=== PATIENT | male | born 1950 | race Caucasian/White ===

== ENCOUNTER 2016-12-24 07:41 | Inpatient (IN) | payer MEDICARE ==
[2016-12-24] VITALS (18 sets, daily range): BP systolic 138–162; BP diastolic 69–93; PULSE 55–103; RESP 12–22; Ht 180.3 cm; Wt 77.5 kg
[~2016-12-24] VITALS: Ht 180.3 cm; Wt 77.5 kg
[2016-12-24] MEDS ORDERED: SOD CHLORIDE 0.9% 1,000 ML IV STA (07:45)
--- NOTE | 2016-12-24 08:10 | RADRPT ---
PROCEDURE: XR Chest. CLINICAL INDICATION: Chest pain , CVA TECHNIQUE: Single frontal view of the chest was obtained COMPARISON: None FINDINGS: The heart is enlarged. The thoracic aorta is calcified. There are mild bibasilar linear atelectatic changes. There is no pleural effusion or pneumothorax. RPTAT: AA IMPRESSION: Mild cardiomegaly. Calcified aorta consistent with atherosclerotic disease. Mild bibasilar linear atelectatic changes. .Bart Tavera MD, MD Date Time Electronically viewed and signed by .Bart Tavera MD, MD on 12/24/2016 08:10 .S/
[2016-12-24 08:24] LABS: BASOPHILS % 0.4 % (0.0-2.0); EOSINOPHILS # 0.2 10^3/ul (0.0-0.5); HEMATOCRIT 32.6 % (42.0-52.0); HEMOGLOBIN 10.6 g/dl (14.0-18.0); LYMPHOCYTES # 0.9 10^3/ul (0.8-2.9); LYMPHOCYTES % 18.7 % (15.0-51.0); MEAN CORPUSCULAR HEMOGLOBIN 30.3 pg (29.0-33.0); MEAN CORPUSCULAR HGB CONC 32.5 g/dl (32.0-37.0); MEAN CORPUSCULAR VOLUME 93.1 fl (82.0-101.0); MEAN PLATELET VOLUME 9.3 fl (7.4-10.4); MONOCYTE # 0.3 10^3/ul (0.3-0.9); MONOCYTES % 6.4 % (0.0-11.0); NEUTROPHIL # 3.3 10^3/ul (1.6-7.5); NEUTROPHILS % 69.1 % (39.0-77.0); PLATELET COUNT 120 10^3/UL (140-415); RED CELL DISTRIBUTION WIDTH 14.3 % (11.5-14.5); WHITE BLOOD COUNT 4.8 10^3/ul (4.8-10.8)
[2016-12-24 08:42] LABS: INR 1.1; PARTIAL THROMBOPLASTIN TIME 31.7 Sec (25.0-35.0); PROTIME 14.2 Sec (12.2-14.2); PT RATIO 1.1
[2016-12-24 08:47] LABS: ANION GAP 26 (8-16); BLOOD UREA NITROGEN 50 mg/dl (7-20); CALCIUM 9.4 mg/dl (8.4-10.2); CARBON DIOXIDE 12 mmol/L (21-31); CHLORIDE 110 mmol/L (97-110); GLUCOSE 110 mg/dl (70-220); POTASSIUM 4.9 mmol/L (3.5-5.1); SODIUM 143 mmol/L (135-144)
[2016-12-24 08:52] LABS: ACETAMINOPHEN < 10.0 ug/ml (10.0-30.0); ETHANOL < 10.0 mg/dl; SALICYLATE < 1.0 mg/dl (5.0-30.0)
--- NOTE | 2016-12-24 08:52 | RADRPT ---
PROCEDURE: CT Brain without contrast. CLINICAL INDICATION: Neurological deficit. TECHNIQUE: A CT of the brain was performed on multidetector high-resolution CT scanner utilizing a xial sections from the skull base through the vertex without contrast. The scan was reviewed in sof t tissue brain and high frequency resolution bone algorithm windows. Images were reviewed on a high -resolution PACS workstation. One or more the following does reduction techniques were utilized: Aut omated exposure control, adjustment of the mA/ or kV according to patient's size, or use of iterativ e reconstruction technique. The exam CTDI = 44.99 mGy and the DLP = 720.23 mGy-cm. DICOM images are available. COMPARISON: None available. FINDINGS: There are extra-axial moderately hyperdense foci mainly overlying left frontal lobe measuring up to 6 mm which are likely represent subdural hemorrhages. There is 2 mm leftward midline shift. Postsurgical changes of prior left frontal craniotomy are noted. The ventricles and sulci are mildly prominent indicative of volume loss. There is mild cerebellar vo lume loss. No abnormal intra-axial or extra-axial fluid collections are seen. The rowell/white romel er differentiation is preserved. There are mild scattered foci of hypoattenuation in the white matter, which are nonspecific in etiol ogy but likely reflect chronic small vessel ischemic changes. There are mild intracranial vascular calcifications consistent with atherosclerosis. The visualized paranasal sinuses are essentially shanae ar. IMPRESSION: 1. Extra-axial moderately hyperdense hemorrhages mainly overlying left frontal lobe measuring up to 6 mm , likely subdural hemorrhages. 2 mm leftward midline shift. 2. No acute intracranial transcortical infarction. 3. Mild intracranial atherosclerosis and chronic small vessel ischemic changes. 4. Prior left frontal craniotomy. 5. Mild generalized cerebral and cerebellar volume loss. A critical call report was made and above findings were discussed and acknowledged by Chela Loyd on 12/24/2016 8:46 AM . RPTAT: UU .Pancho Bowie MD, MD Date Time Electronically viewed and signed by .Pancho Bowie MD, MD on 12/24/2016 08:51 .N/
[2016-12-24 08:58] LABS: TROPONIN-I 0.069 ng/ml (0.00-0.12)
[2016-12-24 09:29] LABS: ADD UMIC YES; UR ASCORBIC ACID NEGATIVE (NEGATIVE); UR BILIRUBIN (Dip) NEGATIVE (NEGATIVE); UR BLOOD (Dip) 1+ mg/dL (NEGATIVE); UR CLARITY CLEAR (CLEAR); UR COLOR STRAW (YELLOW); UR GLUCOSE (Dip) NEGATIVE (NEGATIVE); UR KETONES (Dip) NEGATIVE (NEGATIVE); UR LEUKOCYTE ESTERASE (Dip) NEGATIVE Leu/ul (NEGATIVE); UR NITRITE (Dip) NEGATIVE (NEGATIVE); UR RBC 2 /HPF (0-5); UR SPECIFIC GRAVITY (Dip) 1.009 (1.003-1.030); UR TOTAL PROTEIN (Dip) 2+ mg/dl (NEGATIVE); UR UROBILINOGEN (Dip) NEGATIVE (NEGATIVE)
[2016-12-24 09:42] LABS: CANNABINOIDS Negative (NEGATIVE)
[2016-12-24 09:43] LABS: BARBITURATES Negative (NEGATIVE); BENZODIAZEPINES Negative (NEGATIVE); COCAINE Negative (NEGATIVE); OPIATES Negative (NEGATIVE)
[2016-12-24] MEDS: DEXTROSE 5%-0.45% NACL 500 ML IV SCH ×2 (12:13→16:33)
--- NOTE | 2016-12-24 13:07 | ERD ---
ER Documentation Chief Complaint Chief Complaint bib paramedics from home;altered loc-last seen normal last night by kennedy SALCIDO Patient is a 66-year-old male with hypertension hepatitis A who presents with altered mental status. Please note the history and physical exam is limited secondary to the patient's altered mental status. Patient was brought in by ambulance. The patient was seen normal last night. The patient was "mumbling" by the paramedics. The patient is much different than usual as he is usually able to walk and today could not. His sugar was 123. He cannot provide much history otherwise. ROS All systems reviewed and are negative except as per history of present illness. Allergies Allergies: Coded Allergies: No Known Allergy (Unverified , 12/24/16) PMhx/Soc Medical and Surgical Hx: pt denies Surgical Hx History of Surgery: Yes (Per head Ct, there was Crany before, pt can't remember ) Hx Neurological Disorder: No Hx Respiratory Disorders: No Hx Cardiac Disorders: Yes (HTN) Hx Psychiatric Problems: No Hx Miscellaneous Medical Probl: No Smoking Status: Unknown if ever smoked FmHx Unable to obtain Physical Exam Vitals Vital Signs Date Time Temp Pulse Resp B/P Pulse Ox O2 Delivery O2 Flow Rate FiO2 12/24/16 07:53 Nasal Cannula 2 12/24/16 07:51 97.8 64 19 143/76 96 Physical Exam Const: Confused Head: Atraumatic Eyes: Normal Conjunctiva ENT: Normal External Ears, Nose and Mouth. Neck: Full range of motion..~ No meningismus. Resp: Clear to auscultation bilaterally Cardio: Regular rate and rhythm, no murmurs Abd: Soft, non tender, non distended. Normal bowel sounds Skin: No petechiae or rashes Back: No midline or flank tenderness Ext: No cyanosis, or edema Neur: Awake but confused, able to hold arms up bilaterally, able to lift each leg against gravity Result Diagram: 12/24/16 0750 12/24/16 0750 Results 24 hrs Laboratory Tests Test 12/24/16 07:50 12/24/16 07:57 12/24/16 08:33 White Blood Count 4.810^3/ul Red Blood Count 3.5010^6/ul Hemoglobin 10.6g/dl Hematocrit 32.6% Mean Corpuscular Volume 93.1fl Mean Corpuscular Hemoglobin 30.3pg Mean Corpuscular Hemoglobin Concent 32.5g/dl Red Cell Distribution Width 14.3% Platelet Count 80032^3/UL Mean Platelet Volume 9.3fl Neutrophils % 69.1% Lymphocytes % 18.7% Monocytes % 6.4% Eosinophils % 5.0% Basophils % 0.4% Nucleated Red Blood Cells % 0.0/100WBC Neutrophils # 3.310^3/ul Lymphocytes # 0.910^3/ul Monocytes # 0.310^3/ul Eosinophils # 0.210^3/ul Basophils # 0.010^3/ul Nucleated Red Blood Cells # 0.010^3/ul Prothrombin Time 14.2Sec Prothrombin Time Ratio 1.1 INR International Normalized Ratio 1.10 Activated Partial Thromboplast Time 31.7Sec Sodium Level 143mmol/L Potassium Level 4.9mmol/L Chloride Level 110mmol/L Carbon Dioxide Level 12mmol/L Anion Gap 26 Blood Urea Nitrogen 50mg/dl Creatinine 5.20mg/dl Glucose Level 110mg/dl Hemoglobin A1c 4.4% Calcium Level 9.4mg/dl Troponin I 0.069ng/ml Salicylates Level < 1.0mg/dl Acetaminophen Level < 10.0ug/ml Ethyl Alcohol Level < 10.0mg/dl Bedside Glucose 115mg/dL Urine Color STRAW Urine Clarity CLEAR Urine pH 5.0 Urine Specific [place] 1.009 Urine Ketones NEGATIVEmg/dL Urine Nitrite NEGATIVEmg/dL Urine Bilirubin NEGATIVEmg/dL Urine Urobilinogen NEGATIVEmg/dL Urine Leukocyte Esterase NEGATIVELeu/ul Urine Microscopic RBC 2/HPF Urine Microscopic WBC 1/HPF Urine Hemoglobin 1+mg/dL Urine Glucose NEGATIVEmg/dL Urine Total Protein 2+mg/dl Urine Opiates Screen Negative Urine Barbiturates Negative Urine Amphetamines Screen Negative Urine Benzodiazepines Screen Negative Urine Cocaine Screen Negative Urine Cannabinoids Negative Current Medications Medications (Trade) Dose Ordered Sig/Jorge L Route PRN Reason Start Time Stop Time Status Last Admin Dose Admin Sodium Chloride (NS) 1,000 ml @ 1,000 mls/hr Q1H STAT IV 12/24/16 07:45 12/24/16 08:44 DC 12/24/16 08:08 Procedures/MDM CT brain shows subdural hemorrhage with 2 mm midline shift per radiology. EKG read by me: Rate/Rhythm: Regular rate and rhythm at a normal rate Intervals: Normal Impression: No evidence of ischemia or arrhythmia Patient is a 66-year-old male presents with acute altered mental status. The patient was found to have a subdural hemorrhage with 2 mm of midline shift. The patient has an elevated BUN and creatinine as well showing acute renal failure. There is anemia with hemoglobin of 10.6 and there is thrombocytopenia with a platelet count of 120. The patient will be admitted to the ICU under the care of the panel team. I have also spoken with Dr. Laughlin the neurosurgeon sales professional bilingual who was recommended 1 unit of platelets and will see the patient in consultation. Given the patient's age and comorbidities I believe a discussion with the family regarding goals of care would be appropriate. There is no family here currently. Critical Care: Time: 35 minutes excluding all billable procedures. Treatments/Evaluations: Close monitoring and treatment of unstable vital signs, cardiorespiratory, and neurologic status, while maintaining tight balance of fluid, respiratory, and cardiac interventions. Departure Diagnosis: Primary Impression: Subdural hemorrhage Additional Impressions: Altered level of consciousness Thrombocytopenia Condition: Critical MICKEY MELISSA MD Dec 24, 2016 13:07
--- NOTE | 2016-12-24 14:07 | HP ---
Date/Time of Note Date/Time of Note DATE: 12/24/16 TIME: 13:42 Assessment/Plan VTE Prophylaxis VTE Prophylaxis Intervention: SCD's Lines/Catheters IV [facility]ter Type (from [facility]): Peripheral IV Urinary Cath still in place: No Assessment/Plan Chief Complaint/Hosp Course 66 yo male with unclear medical history who presents with SDH and mild encephelopathy with SERAFIN vs CKD SDH: - No surgical intervention needed at this time - Repeat head CT this afternoon to monitor for progression - PT/OT - Speech eval - Neuro consult - Hold AC and antiplatelets - Will give DDAVP if progressive bleed given uremia - Unclear reason for prior craniotomy seen on head CT - BP controlled SERAFIN vs CKD: - Unclear etiology or chronicity of renal failure - Renal US, UA bland but w proteinuria - No need for acute HD - Trend creatinine ICU Problems: HPI/ROS Admit Date/Time Admit Date/Time Dec 24, 2016 at 08:58 Hx of Present Illness 66 yo male with unclear medical history (only reports "kidney problem", head CT shows prior craniectomy) who presented with 1 day of AMS Patient does not remember the exact events leading up to hospitalization. Says he felt unwell yesterday, but can't offer much more information. Says he was taking advil. Does nto remember following this. Per EMS and ED reports, his room mate called EMS because he was acting strangely. Brought to ED where head imaging has shown a SDH with small midline shift. Patient feels well now, no complaints of headache, weakness, etc Also has a bruise under his left eye, says he felt and hit his head on the couch a couple weeks ago, but was fine afterwards Does seem a bit confused PMH/Family/Social Past Medical History Medical History: no pertinent history Past Surgical History Past Surgical Hx: other Family History Significant Family History: no pertinent family hx Social History Alcohol Use: none Smoking Status: Unknown if ever smoked Drug Use: none Exam/Review of Systems Vital Signs Vitals Vital Signs Date Time Temp Pulse Resp B/P Pulse Ox O2 Delivery O2 Flow Rate FiO2 12/24/16 12:30 59 17 152/75 97 12/24/16 12:00 97.7 12/24/16 10:10 Room Air 12/24/16 07:53 2 Exam Exam Well appearing, NAD A bit drowsy Alert, oriented to "hospital", date, person Small ecchymosis under L eye Neuro: CN II-XII in tact Sensation in tact throughout Strenght 5/5 throughout FNF normal Gait not assessed Constitutional: alert, oriented, well developed Psych: nl mood/affect, no complaints Head: atraumatic, normocephalic Eyes: EOMI, PERRL, nl conjunctiva, nl lids, nl sclera ENMT: nl external ears & nose, nl lips & teeth, nl nasal mucosa & septum Neck: non-tender, supple Respiratory: clear to auscultation, normal air movement Cardiovascular: nl pulses, regular rate and rhythm Gastrointestinal: nl liver, spleen, non-tender, soft Musculoskeletal: nl extremities to inspection Extremities: normal pulses Neurological: RUBBER GOODS TESTER II-XII intact, nl mental status, nl speech, nl strength Skin: nl turgor, No rash or lesions Lymph: nl lymph nodes Labs Result Diagram: 12/24/16 0750 12/24/16 0750 Medications Medications Current Medications Acetaminophen 325 mg 325 mg Q6H PRN PO PAIN AND OR ELEVATED TEMP; Start at 11:30 Dextrose/Sodium Chloride (D5-1/2ns) 500 ml @ 75 mls/hr Q6H40M IV Last administered on 12/24/16t 12:13; Admin Dose 75 MLS/HR; Start 12/24/16 at 11:30 ALYSSA HUSTON MD Dec 24, 2016 13:54
--- NOTE | 2016-12-24 14:19 | CONS ---
Date/Time of Note Date/Time of Note DATE: 12/24/16 TIME: 14:12 Assessment/Plan Assessment/Plan Problems: (1) Subdural hemorrhage Status: Acute Additional Assessment/Plan 66 year old male with prior hx of bur holes presumably for drainage of SDH now presents with small extra-axial mixed density collection. His wounds appear well healed and therefore I doubt this collection can completely be attributed to prior surgery, and is most likely a mixed age fluid collection given evidence of recent head trauma (left orbital echymosis). However, there is no indication for intervention for this hematoma at the present time. I recommend follow up CT in the am and if stable he may leave ICU. Thx. Consultation Date/Type/Reason Admit Date/Time Dec 24, 2016 at 08:58 Date of Consultation: Dec 24, 2016 Type of Consultation: neurosurgery Reason for Consultation left SDH Hx of Present Illness 66 year old male with prior hx of bur holes (presumed SDH) p/w altered mental status to ED. + ETOH history (patient admits to a pint or two of vodka, but not every day). CT in ED shows jeff mixed density extra-axial fluid under region of prior left frontal bur holes. Psychological: nl mood/affect, no complaints Past Medical History Medical History: no pertinent history Past Surgical History Past Surgical Hx: other Social History Alcohol Use: none Smoking Status: Unknown if ever smoked Drug Use: none Exam/Review of Systems Vital Signs Vitals Vital Signs Date Time Temp Pulse Resp B/P Pulse Ox O2 Delivery O2 Flow Rate FiO2 12/24/16 12:30 59 17 152/75 97 12/24/16 12:00 97.7 12/24/16 10:10 Room Air 12/24/16 07:53 2 Exam On exam the patient is awake and alert and oriented to his name, place and date. He does admit to having memory issues and does not remember having had prior neurosurgery in spite of repeated prompting; his wounds are well healed. He is moving all extremities and has no drift. His cranial nerve exam is normal without anisocoria, facial asymmetry, or other lateralizing neurologic deficit. Results Result Diagram: 12/24/16 0750 12/24/16 0750 Results 24 hrs Laboratory Tests Test 12/24/16 07:50 12/24/16 07:57 12/24/16 08:33 White Blood Count 4.8 Red Blood Count 3.50 L Hemoglobin 10.6 L Hematocrit 32.6 L Mean Corpuscular Volume 93.1 Mean Corpuscular Hemoglobin 30.3 Mean Corpuscular Hemoglobin Concent 32.5 Red Cell Distribution Width 14.3 Platelet Count 120 L Mean Platelet Volume 9.3 Neutrophils % 69.1 Lymphocytes % 18.7 Monocytes % 6.4 Eosinophils % 5.0 Basophils % 0.4 Nucleated Red Blood Cells % 0.0 Neutrophils # 3.3 Lymphocytes # 0.9 Monocytes # 0.3 Eosinophils # 0.2 Basophils # 0.0 Nucleated Red Blood Cells # 0.0 Prothrombin Time 14.2 Prothrombin Time Ratio 1.1 INR International Normalized Ratio 1.10 Activated Partial Thromboplast Time 31.7 Sodium Level 143 Potassium Level 4.9 Chloride Level 110 Carbon Dioxide Level 12 L Anion Gap 26 H Blood Urea Nitrogen 50 H Creatinine 5.20 H Glucose Level 110 Hemoglobin A1c 4.4 Calcium Level 9.4 Troponin I 0.069 Salicylates Level < 1.0 L Acetaminophen Level < 10.0 L Ethyl Alcohol Level < 10.0 Bedside Glucose 115 Urine Color STRAW Urine Clarity CLEAR Urine pH 5.0 Urine Specific [place] 1.009 Urine Ketones NEGATIVE Urine Nitrite NEGATIVE Urine Bilirubin NEGATIVE Urine Urobilinogen NEGATIVE Urine Leukocyte Esterase NEGATIVE Urine Microscopic RBC 2 Urine Microscopic WBC 1 Urine Hemoglobin 1+ H Urine Glucose NEGATIVE Urine Total Protein 2+ H Urine Opiates Screen Negative Urine Barbiturates Negative Urine Amphetamines Screen Negative Urine Benzodiazepines Screen Negative Urine Cocaine Screen Negative Urine Cannabinoids Negative Medications Medications Current Medications Acetaminophen 325 mg 325 mg Q6H PRN PO PAIN AND OR ELEVATED TEMP; Start at 11:30 Dextrose/Sodium Chloride (D5-1/2ns) 500 ml @ 75 mls/hr Q6H40M IV Last administered on 12/24/16t 12:13; Admin Dose 75 MLS/HR; Start 12/24/16 at 11:30 FOREIGN DE LEÓN MD Dec 24, 2016 14:18
[2016-12-24] MEDS ORDERED: NACL 0.9% 3 ML SYG IV SCH (14:30)
[2016-12-24] MEDS ORDERED: HYDR-3670 PO (16:01)
[2016-12-24] MEDS ORDERED: SYN1 PO (16:01)
[2016-12-24] MEDS ORDERED: AMLO-218 PO (16:01)
[2016-12-24] MEDS ORDERED: SEVE800T7 PO (16:01)
[2016-12-24] MEDS ORDERED: CALC0.5C4 PO (16:01)
[2016-12-24] MEDS ORDERED: TAMS0.4C2 PO (16:01)
--- NOTE | 2016-12-24 16:37 | RADRPT ---
PROCEDURE: Retroperitoneal US. CLINICAL INDICATION: Renal insufficiency TECHNIQUE: Multiple sonographic images of the kidneys and retroperitoneum were obtained. The imag es were reviewed on a PACS workstation. COMPARISON: No prior studies are available for comparison. FINDINGS: The right kidney measures 11.3 cm. The left kidney measures 11.7 cm. There is increased echogenicity of the kidneys. There is thinning of the cortex of the right kidney. There are multiple bilateral simple cysts, the largest measuring 3.1 cm in the right kidney and 2.6 cm in the left kidney. There is no evidence of hydronephrosis. The urinary bladder is normal. IMPRESSION: Echogenic kidneys, consistent with medical renal disease. No evidence of hydronephrosis. Bilateral simple kidney cysts. RPTAT: AA .Bart Tavera MD, Date Time Electronically viewed and signed by .Bart Tavera MD, on 12/24/2016 16:36 .S/
--- NOTE | 2016-12-24 16:39 | CONS ---
DATE OF ADMISSION: 12/24/2016 DATE OF CONSULTATION: REASON FOR CONSULTATION: Renal failure. HISTORY OF PRESENT ILLNESS: This is a 66-year-old male who was brought into the [facility] ER after being found to have altered have altered mental status per house members. Harriet cherry was brought in the ambulance. Patient was seen normal last night, was mumbling by the paramedics . He was very altered as compared to his norm before when he was seen by the local roommates and wa s brought into the emergency department. According to the patient, he was incarcerated 3 months ago secondary to a DUI and at that time, they told him that he had kidney disease. Apparently, patient also follows a kidney doctor, as per the prescription it says ____ in [place] and he has be en told that he has kidney disease. The patient does not know what stage kidney disease he has. Ac cording to the patient, he was taking Advil 2 to 3 a day in the morning. He took it on and off for many years. Patient denied any nausea, vomiting, diarrhea, any hematemesis, any melena, any bright red blood per rectum. Denies any recent contrast use. The patient, per review of the hospital meds, the patient also takes: 1. Aspirin. 2. Plavix, 3. Lasix. 4. ____. 5. Renvela. On arrival to ED, ____ blood pressure, heart rate of 60. The patient was afebrile. Blood pressure 145/69. Labs showed bicarb of 12, BUN of 50, creatinine of 5.20 and hemoglobin of 10.6. Patient wright d a CT of the head that showed extraaxial moderately hyperdense hemorrhages mainly overlying the lef t frontal lobe measuring 6 mm, likely subdural hemorrhages. A 2 mm leftward midline shift and a delmis or left frontal craniotomy and renal was consulted for renal failure. PAST MEDICAL HISTORY: 1. Hypertension. 2. Chronic kidney disease, unknown the stage. 3. History of prior frontal craniotomy. 4. Benign prostatic hypertrophy. 5. Secondary hyperparathyroidism. ALLERGIES: NONE. PAST SURGICAL HISTORY: He had tonsillectomy and right frontal craniotomy. MEDICATIONS: Taking at home are: 1. Kionex 15 grams Tuesday, Tuesday, Tuesday. 2. Renvela 1600 t.i.d. 3. ____ 200 b.i.d. 4. Amlodipine 10. 5. Calcitriol 0.25. 6. Flomax 0.4. 7. Plavix 75. 8. Lasix 40 b.i.d. 9. ____. 10. ____ 10 q.i.d. 11. Aspirin 81. 12. Lipitor 20. SOCIAL HISTORY: The patient drinks alcohol, said 1 to 2 bottles per day. He denies any history of smoking, any other drug use. Currently lives in [place] with other female roommates. FAMILY HISTORY: No history of kidney disease in the family. REVIEW OF SYSTEMS: ____ The patient says that he has been falling lately. Denied any headaches, an y blurry vision, nausea, vomiting, diarrhea, any chest ____, shortness of breath, lower extremity ed micaela. Once in a while, he said he has painful urination. Denies any hematuria. The patient has a b ruise under the left eye. PHYSICAL EXAMINATION: VITAL SIGNS: Heart rate 60, blood pressure 139/69, saturating 99% on room air. GENERAL: Patient is awake, alert, well appearing, alert and oriented. Responds, answers questions, follows commands. HEENT: Patient has a small bruise under the left eye. NECK: Supple, no JVD. HEART: Regular rate and rhythm. Normal S1. No murmur, rub or gallop. LUNGS: Clear to auscultate bilaterally. ABDOMEN: Soft, ____ positive normoactive bowel sounds. EXTREMITIES: No clubbing, cyanosis, or edema. NEUROLOGIC: The patient moves all extremities. Sensation intact. LABORATORY DATA: Shows a sodium 143, potassium 4.9, chloride 110, bicarbonate 12, BUN of 50, creati nine 5.2. HbA1c 4.4. Troponin 0.069. White count 4.8, hemoglobin 10.6, platelet count of 120. UA shows 1+ hemoglobin, glucose negative, 2+ protein. Urine toxicology is negative. IMAGING: Chest x-ray is a calcified aorta, mild cardiomegaly and CT of the brain shows extraaxial m oderately hyperdense images mainly overlying left frontal lobe measuring 6 mm, likely subdural hemor rhages, 2 mm leftward midline shift. No acute intracranial transcortical infarction. Prior left cr aniotomy. ASSESSMENT AND PLAN: This is a 66-year-old male presenting with: 1. Renal failure, likely acute on chronic versus progression of chronic disease. There are no prio r labs to compare, but patient has been followed by a prior [facility]mer as an outside and is curren tly on all the medications of chronic kidney disease. He has been told 3 months ago when he was inc arcerated that he will need dialysis soon. The patient also takes Advil at home on a chronic regula r basis, could have NSAIDs induced worsening renal failure. The patient denies any nausea, vomiting , diarrhea and has been having good p.o. intake that chances of prerenal causes are unlikely. The p atient does have history of benign prostatic hypertrophy, but denies any benign prostatic hypertroph y symptoms currently. Urine output was over 800 mL. UA showed 2+ protein; however, which is kind o f a little unlikely in the setting of hypertension; however, hypertensive patients can have worsenin g proteinuria if the blood pressure is uncontrolled. Plus NSAIDs can also cause proteinuria, can al so lead to minimal/membranous glomerulonephritis. 2. Non-gap metabolic acidosis, likely secondary to reduced clearance due to renal failure. 3. Subdural hemorrhage with an episode of altered mental status with a left eye ecchymosis. 4. Hypothyroidism. 5. History of benign prostatic hypertrophy. 6. Secondary hyperparathyroidism. 7. Hyperlipidemia. 8. Hypertension. PLAN: 1. At this period of time, the patient is admitted to ICU. 2. We will do strict I's and O's and some gentle IV fluids. 3. We will monitor the urine output very closely. 4. We will quantify the protein by checking a protein to creatinine ratio. We will also get urine electrolytes. 5. Renal ultrasound is pending. 6. Avoid NSAIDs. 7. Hold off on aspirin and Plavix at this time. 8. We are waiting for a speech swallow eval. Will hold off any p.o. medications at this time, but patient can be eventually started on his Kionex, Renvela, , , Flomax. 9. Hold off of Lasix at this time. 10. Avoid NSAIDs and nephrotoxic agents. 11. We will get all the records from [facility] to compare prior kidney functions. 12. The patient does not have any acute indication of any renal replacement therapy at this point. Vital signs stable. Volume status okay. Electrolytes okay, but if the condition changes, please c all renal emergently. 13. Will follow the patient closely with you. Thank you, Dr. Mike Sierra for consultation. Please call us for any other questions. Dictated By: CHRISTIAN VO/ILYA Conf#: [id number] DID#: [id number] CC: MIKE SIERRA MD;*EndCC*
[2016-12-24] MEDS: CITRIC ACID/SODIUM CITRATE 15 ML CUP PO SCH (20:31)
[2016-12-25] VITALS (15 sets, daily range): BP systolic 123–171; BP diastolic 59–93; PULSE 61–78; RESP 14–24
[2016-12-25] MEDS: DEXTROSE 5%-0.45% NACL 500 ML IV SCH ×5 (01:04→22:15)
[2016-12-25 04:26] LABS: PROTEIN, TOTAL 6.2 g/dL (6.1-8.1)
[2016-12-25 05:54] LABS: HAAIG REFLEX REFLEX FILED
[2016-12-25 05:59] LABS: BASOPHILS % 0.4 % (0.0-2.0); EOSINOPHILS # 0.1 10^3/ul (0.0-0.5); EOSINOPHILS % 2.6 % (0.0-7.0); HEMATOCRIT 28.7 % (42.0-52.0); HEMOGLOBIN 9.6 g/dl (14.0-18.0); LYMPHOCYTES # 0.9 10^3/ul (0.8-2.9); LYMPHOCYTES % 17.9 % (15.0-51.0); MEAN CORPUSCULAR HEMOGLOBIN 30.5 pg (29.0-33.0); MEAN CORPUSCULAR HGB CONC 33.4 g/dl (32.0-37.0); MEAN CORPUSCULAR VOLUME 91.1 fl (82.0-101.0); MEAN PLATELET VOLUME 9.3 fl (7.4-10.4); MONOCYTE # 0.3 10^3/ul (0.3-0.9); MONOCYTES % 6.3 % (0.0-11.0); NEUTROPHIL # 3.6 10^3/ul (1.6-7.5); NEUTROPHILS % 72.4 % (39.0-77.0); PLATELET COUNT 122 10^3/UL (140-415); RED BLOOD COUNT 3.15 10^6/ul (4.70-6.10); WHITE BLOOD COUNT 4.9 10^3/ul (4.8-10.8)
[2016-12-25 06:52] LABS: ALBUMIN 3.8 g/dl (3.3-4.9); ALBUMIN/GLOBULIN RATIO 1.4; BILIRUBIN,INDIRECT 0.1 mg/dl (0-1.1); BILIRUBIN,TOTAL 0.1 mg/dl (0.2-1.3); CALCIUM 9.3 mg/dl (8.4-10.2); CREATININE 4.75 mg/dl (0.61-1.24); POTASSIUM 4.1 mmol/L (3.5-5.1); TOTAL PROTEIN 6.5 g/dl (6.1-8.1)
--- NOTE | 2016-12-25 09:00 | RADRPT ---
PROCEDURE: CT Brain without contrast. CLINICAL INDICATION: Subdural hematoma TECHNIQUE: A CT of the brain was performed on a multidetector CT scanner utilizing axial imaging f rom the skull base through the vertex without IV contrast. Multiplanar reformatted images were made . Images were reviewed on a PACS workstation. The CTDIvol is 44 mGy and the DLP is or 720 mGycm. One or more of the following dose reduction techniques were utilized: 1.) Automated exposure control 2.) Adjustment of the mA +/- kV according to patient's size 3.) Use of iterative reconstruction technique. COMPARISON: Head CT December 24, 2016 FINDINGS: Again noted are too left frontal craniotomy cyn hole defects. There has been partial evacuation of a left frontal subdural hematoma. Stable small volume of acute blood remains unchanged. This measure s approximately 4 mm in maximum transverse diameter. There is no significant mass effect on the subj acent brain nor is there midline shift. No other discrete extra-axial fluid collection or masses pre sent. Ventricles are in the midline and of normal contour and configuration. There is mild white mat ter disease compatible with chronic small vessel ischemia. No associated mass effect is present. The re is preservation of normal rowell-white discrimination. There is partial opacification of the right maxillary sinus. IMPRESSION: Small volume left frontal subdural hemorrhage in patient status post partial evacuation. No signific ant change. .Reymundo Yao MD, MD Date Time Electronically viewed and signed by .Reymundo Yao MD, on 12/25/2016 09:00 .A/
[2016-12-25 09:01] LABS: HEPATITIS B CORE ANTIBODY REACTIVE (NEGATIVE)
--- NOTE | 2016-12-25 09:41 | QN ---
Documentation Comment Clinically stable. Appreciate detailed history obtained by consulting physician. I left a message with patient's son but he did not call back. In any event there is no indication for neurosurgical intervention at the present time. He is cleared to transfer to the floor. I will follow prn. I recommend a repeat CT in 7-10 days. FOREING DE LEÓN MD Dec 25, 2016 09:41
[2016-12-25] MEDS: CITRIC ACID/SODIUM CITRATE 15 ML CUP PO SCH ×3 (10:51→20:06)
[2016-12-25] MEDS: SEVELAMER CARBONATE 0.8 GM PKT PO SCH ×3 (11:24→17:58)
[2016-12-25 11:33] LABS: PROTEIN/CREAT RATIO 4.32 RATIO
--- NOTE | 2016-12-25 12:09 | CONS ---
Date/Time of Note Date/Time of Note DATE: 12/25/16 TIME: 12:08 Assessment/Plan Assessment/Plan Chief Complaint/Hosp Course 1. Renal failure, likely acute on chronic versus progression of chronic disease. 2. Non-gap metabolic acidosis, likely secondary to reduced clearance due to renal failure, better. 3. Subdural hemorrhage with an episode of altered mental status with a left eye ecchymosis. 4. Hypothyroidism. 5. History of benign prostatic hypertrophy. 6. Secondary hyperparathyroidism. 7. Hyperlipidemia. 8. Hypertension,controlled. Problems: Additional Assessment/Plan 1. strict I and O 2. CR better 3. pt is producing urine 4. Optimization kidney function Consultation Date/Type/Reason Admit Date/Time Dec 24, 2016 at 08:58 Initial Consult Date 12/24/16 Type of Consultation: nephrology Reason for Consultation Dr Hodges 24 HR Interval Summary Constitutional: improved Exam/Review of Systems Vital Signs Vitals Vital Signs Date Time Temp Pulse Resp B/P Pulse Ox O2 Delivery O2 Flow Rate FiO2 12/25/16 10:00 61 15 130/80 97 Nasal Cannula 2.0 12/25/16 08:00 97.7 Intake and Output 12/24/16 12/24/16 12/25/16 14:59 22:59 06:59 Intake Total 150 ml 675 ml 450 ml Output Total 750 ml 750 ml 250 ml Balance -600 ml -75 ml 200 ml Exam Constitutional: alert, oriented Neck: supple Respiratory: clear to auscultation Cardiovascular: regular rate and rhythm Gastrointestinal: soft Results Result Diagram: 12/25/16 0532 12/25/16 0532 Results 24 hrs Laboratory Tests Test 12/24/16 16:22 12/25/16 05:32 12/25/16 09:10 Total Protein (PEP) 6.2 Albumin (PEP) Pending [id number] Pending Ateja-[id number] Pending Beta Globulins Pending Gamma Globulins Pending Protein Electrophoresis Interpret Pending White Blood Count 4.9 Red Blood Count 3.15 L Hemoglobin 9.6 L Hematocrit 28.7 L Mean Corpuscular Volume 91.1 Mean Corpuscular Hemoglobin 30.5 Mean Corpuscular Hemoglobin Concent 33.4 Red Cell Distribution Width 14.0 Platelet Count 122 L Mean Platelet Volume 9.3 Neutrophils % 72.4 Lymphocytes % 17.9 Monocytes % 6.3 Eosinophils % 2.6 Basophils % 0.4 Nucleated Red Blood Cells % 0.0 Neutrophils # 3.6 Lymphocytes # 0.9 Monocytes # 0.3 Eosinophils # 0.1 Basophils # 0.0 Nucleated Red Blood Cells # 0.0 Sodium Level 146 H Potassium Level 4.1 Chloride Level 115 H Carbon Dioxide Level 17 L Anion Gap 18 #H Blood Urea Nitrogen 45 H Creatinine 4.75 H Glucose Level 98 Calcium Level 9.3 Total Bilirubin 0.1 L Direct Bilirubin 0.00 Indirect Bilirubin 0.1 Aspartate Amino Transf (AST/SGOT) 22 Alanine Aminotransferase (ALT/SGPT) 14 Alkaline Phosphatase 91 Total Protein 6.5 Albumin 3.8 Globulin 2.70 Albumin/Globulin Ratio 1.40 Hepatitis B Surface Antigen POSITIVE H Hepatitis B Core Total Antibody REACTIVE H Hepatitis C Antibody REACTIVE H HIV (1&2) Antibody NEGATIVE Urine Random Creatinine 120.27 Urine Random Sodium 57 Urine Protein/Creatinine Ratio 4.32 Urine Total Protein 520.0 H Medications Medications Current Medications Acetaminophen 325 mg 325 mg Q6H PRN PO PAIN AND OR ELEVATED TEMP; Start at 11:30 Dextrose/Sodium Chloride (D5-1/2ns) 500 ml @ 75 mls/hr Q6H40M IV Last administered on 12/25/16 01:04; Admin Dose 75 MLS/HR; Start 12/24/16 at 11:30 Citric Acid/ Sodium Citrate (Bicitra) 30 ml TID PO Last administered on 10:51; Admin Dose 30 ML; Start 12/24/16 at 21:00 Amlodipine Besylate (Norvasc) 10 mg DAILY PO ; Start 12/26/16 at 09:00 Calcitriol (Rocaltrol) 0.5 mcg DAILY PO ; Start 12/26/16 at 09:00 Hydralazine HCl (Apresoline) 10 mg Q6H PO Last administered on 12/25/16 11:24 ; Admin Dose 10 MG; Start 12/25/16 at 11:00 Tamsulosin HCl (Flomax) 0.4 mg HS PO ; Start 12/25/16 at 21:00 MARIE REED Dec 25, 2016 12:09
--- NOTE | 2016-12-25 14:39 | PN ---
Date/Time of Note Date/Time of Note DATE: 12/25/16 TIME: 14:37 Assessment/Plan VTE Prophylaxis VTE Prophylaxis Intervention: SCD's Lines/Catheters IV Catheter Type (from Nrs): Peripheral IV Urinary Cath still in place: No Assessment/Plan Chief Complaint/Hosp Course 66 yo male with unclear medical history who presents with SDH and mild encephelopathy with SERAFIN vs CKD SDH: - No surgical intervention needed - Bleed is stable on serial head CT - PT/OT clear patient for home - Speech eval cleared for diet - Hold AC and antiplatelets - Unclear reason for prior craniotomy seen on head CT - BP controlled Possible alcohol use d/o: - Start thiamine repletion SERAFIN vs CKD: - Unclear etiology or chronicity of renal failure - Renal US, UA bland but w proteinuria - No need for acute HD - Trend creatinine - Renal following Anemia of likely CKD Thrombocytopenia of unclear etiology Transfer to floor Problems: Subjective 24 Hr Interval Summary Free Text/Dictation Seen by PT, cleared for dc home with FWW Renal function slightly improved Mentation slightly improved No complaints, no weakness, no headache etc SDH is stable on serial CT Exam/Review of Systems Vital Signs Vitals Vital Signs Date Time Temp Pulse Resp B/P Pulse Ox O2 Delivery O2 Flow Rate FiO2 12/25/16 13:57 97.9 64 16 164/78 98 12/25/16 10:00 Nasal Cannula 2.0 Intake and Output 12/24/16 12/24/16 12/25/16 15:00 23:00 07:00 Intake Total 225 ml 675 ml 450 ml Output Total 750 ml 750 ml 250 ml Balance -525 ml -75 ml 200 ml Exam Constitutional: alert, oriented, well developed Psych: nl mood/affect, no complaints Head: atraumatic, normocephalic Eyes: EOMI, PERRL, nl conjunctiva, nl lids, nl sclera ENMT: nl external ears & nose, nl lips & teeth, nl nasal mucosa & septum Neck: non-tender, supple Respiratory: clear to auscultation, normal air movement Cardiovascular: nl pulses, regular rate and rhythm Gastrointestinal: nl liver, spleen, non-tender, soft Musculoskeletal: nl extremities to inspection, nl gait and stance Extremities: normal pulses 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 II-XII intact, nl mental status, nl speech, nl strength Skin: nl turgor, No rash or lesions Lymph: nl lymph nodes Results Result Diagram: 12/25/16 0532 12/25/16 0532 Results 24 hrs Laboratory Tests Test 12/24/16 16:22 12/25/16 05:32 12/25/16 09:10 Total Protein (PEP) 6.2 Albumin (PEP) Pending [id number] Pending Qaqaz-[id number] Pending Beta Globulins Pending Gamma Globulins Pending Protein Electrophoresis Interpret Pending White Blood Count 4.9 Red Blood Count 3.15 L Hemoglobin 9.6 L Hematocrit 28.7 L Mean Corpuscular Volume 91.1 Mean Corpuscular Hemoglobin 30.5 Mean Corpuscular Hemoglobin Concent 33.4 Red Cell Distribution Width 14.0 Platelet Count 122 L Mean Platelet Volume 9.3 Neutrophils % 72.4 Lymphocytes % 17.9 Monocytes % 6.3 Eosinophils % 2.6 Basophils % 0.4 Nucleated Red Blood Cells % 0.0 Neutrophils # 3.6 Lymphocytes # 0.9 Monocytes # 0.3 Eosinophils # 0.1 Basophils # 0.0 Nucleated Red Blood Cells # 0.0 Sodium Level 146 H Potassium Level 4.1 Chloride Level 115 H Carbon Dioxide Level 17 L Anion Gap 18 #H Blood Urea Nitrogen 45 H Creatinine 4.75 H Glucose Level 98 Calcium Level 9.3 Total Bilirubin 0.1 L Direct Bilirubin 0.00 Indirect Bilirubin 0.1 Aspartate Amino Transf (AST/SGOT) 22 Alanine Aminotransferase (ALT/SGPT) 14 Alkaline Phosphatase 91 Total Protein 6.5 Albumin 3.8 Globulin 2.70 Albumin/Globulin Ratio 1.40 Hepatitis B Surface Antigen POSITIVE H Hepatitis B Core Total Antibody REACTIVE H Hepatitis C Antibody REACTIVE H HIV (1&2) Antibody NEGATIVE Urine Random Creatinine 120.27 Urine Random Sodium 57 Urine Protein/Creatinine Ratio 4.32 Urine Total Protein 520.0 H Medications Medications Current Medications Acetaminophen 325 mg 325 mg Q6H PRN PO PAIN AND OR ELEVATED TEMP; Start at 11:30 Dextrose/Sodium Chloride (D5-1/2ns) 500 ml @ 75 mls/hr Q6H40M IV Last administered on 12/25/16 14:22; Admin Dose 75 MLS/HR; Start 12/24/16 at 11:30 Citric Acid/ Sodium Citrate (Bicitra) 30 ml TID PO Last administered on 14:21; Admin Dose 30 ML; Start 12/24/16 at 21:00 Amlodipine Besylate (Norvasc) 10 mg DAILY PO ; Start 12/26/16 at 09:00 Calcitriol (Rocaltrol) 0.5 mcg DAILY PO ; Start 12/26/16 at 09:00 Hydralazine HCl (Apresoline) 10 mg Q6H PO Last administered on 12/25/16 11:24 ; Admin Dose 10 MG; Start 12/25/16 at 11:00 Tamsulosin HCl (Flomax) 0.4 mg HS PO ; Start 12/25/16 at 21:00 Clonidine (Catapres) 0.1 mg Q4H PRN PO SBP ABOVE 160 Last administered on 12/25 14:21; Admin Dose 0.1 MG; Start 12/25/16 at 12:30 Thiamine HCl (Vitamin B1) 500 mg BID PO ; Start 12/25/16 at 15:00; Status ALYSSA MELLO MD Dec 25, 2016 14:39
[2016-12-25 15:32] LABS: ALBUMIN 3.6 g/dL (3.8-4.8)
[2016-12-25] MEDS: NICOTINE (14 MG/24 HR) PATCH TRANSDERM SCH (16:37)
[2016-12-25] MEDS: THIAMINE 100 MG TAB PO SCH ×2 (16:37→20:07)
[2016-12-25] MEDS: ACETAMINOPHEN 325 MG TAB PO PRN (20:07)
[2016-12-25] MEDS ORDERED: TAMSULOSIN (SR) 0.4 MG CAP PO SCH (21:00)
[2016-12-26 02:48] VITALS: BP 157/81; RESP 20
[2016-12-26] MEDS: ACETAMINOPHEN 325 MG TAB PO PRN (02:55)
[2016-12-26] MEDS: DEXTROSE 5%-0.45% NACL 500 ML IV SCH (04:26)
[2016-12-26] MEDS ORDERED: DEXTROSE 5%-0.45% NACL 1,000 ML IV SCH (05:15)
[2016-12-26] MEDS ORDERED: LEVOTHYROXINE 100 MCG TAB PO SCH (07:00)
[2016-12-26 07:48] VITALS: BP 138/70; RESP 18
[2016-12-26] MEDS: SEVELAMER CARBONATE 0.8 GM PKT PO SCH ×2 (08:22→12:44)
[2016-12-26] MEDS: CITRIC ACID/SODIUM CITRATE 15 ML CUP PO SCH ×2 (08:22→12:43)
[2016-12-26] MEDS: THIAMINE 100 MG TAB PO SCH (08:24)
[2016-12-26] MEDS: NICOTINE (14 MG/24 HR) PATCH TRANSDERM SCH (08:26)
[2016-12-26] MEDS ORDERED: CALCITRIOL 0.25 MCG CAP PO SCH (09:00)
[2016-12-26] MEDS ORDERED: AMLODIPINE 10 MG TAB PO SCH (09:00)
--- NOTE | 2016-12-26 12:28 | CONS ---
Date/Time of Note Date/Time of Note DATE: 12/26/16 TIME: 12:27 Assessment/Plan Assessment/Plan Chief Complaint/Hosp Course CKD POSS STAGE 5 HTN BPH ANEMIA METABOLIC ACIDOSIS PLAN CK BMP BICITRA Problems: Consultation Date/Type/Reason Admit Date/Time Dec 24, 2016 at 08:58 Initial Consult Date 12/24/16 Type of Consultation: nephrology 24 HR Interval Summary Constitutional: other (no sob) Exam/Review of Systems Vital Signs Vitals Vital Signs Date Time Temp Pulse Resp B/P Pulse Ox O2 Delivery O2 Flow Rate FiO2 12/26/16 07:48 98.2 68 18 138/70 98 12/25/16 10:00 Nasal Cannula 2.0 Intake and Output 12/25/16 12/25/16 12/26/16 15:00 23:00 07:00 Intake Total 1460 ml 1440 ml 1010 ml Output Total 300 ml 300 ml Balance 1160 ml 1440 ml 710 ml Exam Neck: supple Respiratory: clear to auscultation Cardiovascular: regular rate and rhythm Gastrointestinal: bowel sounds (+), soft Extremities: No edema Results Result Diagram: 12/25/16 0532 12/25/16 0532 Medications Medications Current Medications Acetaminophen (Tylenol Tab) 325 mg Q6H PRN PO PAIN AND OR ELEVATED TEMP Last administered on 12/26/16 02:55; Admin Dose 325 MG; Start 12/24/16 at 11:30 Citric Acid/ Sodium Citrate (Bicitra) 30 ml TID PO Last administered on 08:22; Admin Dose 30 ML; Start 12/24/16 at 21:00 Amlodipine Besylate (Norvasc) 10 mg DAILY PO Last administered on 12/26/16 08 :23; Admin Dose 10 MG; Start 12/26/16 at 09:00 Calcitriol (Rocaltrol) 0.5 mcg DAILY PO Last administered on 12/26/16 08:23; Admin Dose 0.5 MCG; Start 12/26/16 at 09:00 Hydralazine HCl (Apresoline) 10 mg Q6H PO Last administered on 12/26/16 05:30 ; Admin Dose 10 MG; Start 12/25/16 at 11:00 Tamsulosin HCl (Flomax) 0.4 mg HS PO Last administered on 12/25/16 20:06; Admin Dose 0.4 MG; Start 12/25/16 at 21:00 Clonidine (Catapres) 0.1 mg Q4H PRN PO SBP ABOVE 160 Last administered on 12/25 14:21; Admin Dose 0.1 MG; Start 12/25/16 at 12:30 Thiamine HCl (Vitamin B1) 500 mg BID PO Last administered on 12/26/16 08:24; Admin Dose 500 MG; Start 12/25/16 at 15:00 Nicotine 1 patch 1 patch DAILY TRANSDERM Last administered on 12/26/16 08:26 ; Admin Dose 1 PATCH; Start 12/25/16 at 15:00 Dextrose/Sodium Chloride (D5-1/2ns) 1,000 ml @ 75 mls/hr [id number] IV Last administered on 12/26/16 05:44; Admin Dose 75 MLS/HR; Start 12/26/16 at 05:15 Influenza Virus Vaccine (Fluzone) 0.5 ml ONCE ONCE IM* ; Start 12/27/16 at 11: 30; Stop 12/27/16 at 11:31 NEYMAR WOOD MD Dec 26, 2016 12:28
--- NOTE | 2016-12-26 14:37 | PDOCDIS ---
Discharge Instructions DIAGNOSIS Discharge Diagnosis Subdural hematoma CONDITION Patient Condition: Fair HOME CARE INSTRUCTIONS: Diet Instructions: Reduced SodiumSpecial Diet: regular diet FOLLOW UP/APPOINTMENTS Follow-up Plan It is extremely important for you to have continued care for management of your advanced kidney disease You should also avoid taking any aspirin, plavix, or any sort of blood thinners until your doctor tells you that it is ok to do so ALYSSA HUSTON MD Dec 26, 2016 14:37
--- NOTE | 2016-12-26 14:39 | DS ---
Date/Time of Note Date/Time of Note DATE: 12/26/16 TIME: 14:38 Discharge Summary Admission/Discharge Info Admit Date/Time Dec 24, 2016 at 08:58 Discharge Date/Time Discharge Diagnosis Subdural hematoma Patient Condition: Fair Hx of Present Illness 66 yo male with unclear medical history (only reports "kidney problem", head CT shows prior craniectomy) who presented with 1 day of AMS Patient does not remember the exact events leading up to hospitalization. Says he felt unwell yesterday, but can't offer much more information. Says he was taking advil. Does nto remember following this. Per EMS and ED reports, his room mate called EMS because he was acting strangely. Brought to ED where head imaging has shown a SDH with small midline shift. Patient feels well now, no complaints of headache, weakness, etc Also has a bruise under his left eye, says he felt and hit his head on the couch a couple weeks ago, but was fine afterwards Does seem a bit confused Hospital Course CKD POSS STAGE 5 HTN BPH ANEMIA METABOLIC ACIDOSIS PLAN CK BMP BICITRA The patient was found to have a SDH on imaging. It was small and stable on serial imaging exams. He was seen by Dr Laughlin from neurosurgery who recommended against any surgical intervention. He was found to have stage V CKD and given approrpiate medications for this condition. He was extensively counseled no the need to maintain routine care wiht his adz worker for this problem. He was seen by PT who cleared him for discharge to home. Home Meds Reported Medications Hydralazine Hcl* (Hydralazine Hcl*) 10 Mg Tablet, 10 MG PO Q6H, #60 TAB 12/24/16 Amlodipine Besylate* (Norvasc*) 10 Mg Tablet, 10 MG PO DAILY, TAB 12/24/16 Levothyroxine Sodium* (Synthroid*) 100 Mcg Tablet, 100 MCG PO BEFORE BREAKFAST, #30 TAB 12/24/16 Tamsulosin Hcl* (Tamsulosin Hcl*) 0.4 Mg Cap.er.24h, 0.4 MG PO HS, CAP 12/24/16 Calcitriol* (Calcitriol*) 0.5 Mcg Capsule, 0.5 MCG PO DAILY, CAP 12/24/16 Sevelamer Carbonate* (Renvela*) 800 Mg Tablet, 0.8 GM PO WITH MEALS, TAB 12/24/16 Follow-up Plan It is extremely important for you to have continued care for management of your advanced kidney disease You should also avoid taking any aspirin, plavix, or any sort of blood thinners until your doctor tells you that it is ok to do so Primary Care Provider Care Physician No Primary ALYSSA HUSTON MD Dec 26, 2016 14:39
[2016-12-27] MEDS ORDERED: INFLUENZA VIRUS VACCINE 0.5 ML SYG IM* ONE (11:30)
[2016-12-27 11:56] LABS: ANA SCREEN NEGATIVE (NEGATIVE)
[2016-12-27 17:02] LABS: CREATININE, RANDOM URINE 139 mg/dL (20-370); PROTEIN/CREATININE RATIO 2568 mg/g creat (22-128)
== END 2016-12-26 15:06 | disposition home or self-care (01) | DRG 65 ==
LOC: E/R 07:41 → ICU 08:58 → MS2 12-25 11:35
PROVIDERS: ADMIT Internal Medicine; ATTEND Internal Medicine
DX: I62.01 Nontraumatic acute subdural hemorrhage (principal); I12.0 Hypertensive chronic kidney disease with stage 5 chronic kidney disease or end stage renal disease; E87.2 Acidosis; N18.5 Chronic kidney disease, stage 5; D69.6 Thrombocytopenia, unspecified; N40.0 Benign prostatic hyperplasia without lower urinary tract symptoms; D64.9 Anemia, unspecified
CPT/HCPCS: 36415; 70450; 71010; 76775; 80048; 80053; 80306; 80307; 81001; 81003; 82570; 82962; 83036; 84155; 84156; 84165; 84166; 84300; 84484; 85025; 85610; 85730; 86038; 86592; 86703; 86704; 86709; 86803; 86850; 86900; 86901; 87081; 87340; 92610; 93005; 97161; J7030

== ENCOUNTER 2018-04-07 03:36 | Inpatient (IN) | payer MEDICARE, MEDICAID ==
[2018-04-07] VITALS (8 sets, daily range): BP systolic 150–184; BP diastolic 77–98; PULSE 51–126; RESP 20; Ht 185.4 cm; Wt 70.5 kg
[~2018-04-07] VITALS: Ht 185.4 cm; Wt 70.5 kg
[~2018-04-07 03:36] MED LIST: AMLO-218 PO; CALC0.5C10 PO; HYDR-3670 PO; LEVO-86 PO; SEVE800T7 PO; TAMS0.4C2 PO
--- NOTE | 2018-04-07 03:45 | ERD ---
ER Documentation Chief Complaint Chief Complaint aloc HPI The patient is a 67-year-old male, presenting to the ER because of altered level of consciousness of unknown duration. He is unable to provide any history, the history is simply obtained from the EMS that is very limited. The history is obtained from medical record. He was discharged from [facility] 2 days ago Past medical history: COPD, chronic kidney disease on hemodialysis, diverticulitis, hypothyroidism, diabetes mellitus, schizophrenia, depression, dementia, history of atrial fibrillation, hypertension, CHF Past surgical history/social history/review of system: Unable to obtain due to his condition Medications Home Meds Reported Medications Quetiapine Fumarate* (Quetiapine Fumarate*) 25 Mg Tablet, 25 MG PO QHS, TAB 04/07/18 Escitalopram Oxalate* (Escitalopram Oxalate*) 10 Mg Tablet, 10 MG PO DAILY, #30 TAB 04/07/18 Donepezil* (Donepezil*) 5 Mg Tablet, 5 MG PO QHS, #30 TAB 04/07/18 Rivaroxaban* (Xarelto*) 15 Mg Tablet, 15 MG PO DAILY, TAB 04/07/18 Lisinopril* (Lisinopril*) 10 Mg Tablet, 10 MG PO BID, #30 TAB 04/07/18 Metoprolol Succinate* (Toprol XL*) 100 Mg Tab.sr.24h, 100 MG PO DAILY, #30 TAB 04/07/18 Ranitidine Hcl (Ranitidine Hcl) 150 Mg Capsule, 150 MG PO DAILY, #60 CAP 04/07/18 Atorvastatin* (Atorvastatin*) 40 Mg Tablet, 40 MG PO QHS, #30 TAB 04/07/18 Calcium Acetate* (Calcium Acetate*) 667 Mg Capsule, 667 MG PO WITH MEALS, #30 CAP 04/07/18 Levothyroxine Sodium* (Levothyroxine Sodium*) 25 Mcg Tablet, 25 MCG PO BEFORE BREAKFAST, #30 TAB 04/07/18 Allopurinol* (Allopurinol*) 100 Mg Tablet, 100 MG PO DAILY, TAB 04/07/18 Clopidogrel Bisulfate (Clopidogrel) 75 Mg Tablet, 75 MG PO DAILY, #30 TAB 04/07/18 Temazepam* (Temazepam*) 15 Mg Capsule, 15 MG PO HS PRN for INSOMNIA, CAP 04/07/18 Hydralazine Hcl* (Hydralazine Hcl*) 10 Mg Tablet, 10 MG PO Q6H, #60 TAB 12/24/16 Amlodipine Besylate* (Norvasc*) 10 Mg Tablet, 10 MG PO DAILY, TAB 12/24/16 Levothyroxine Sodium* (Synthroid*) 100 Mcg Tablet, 100 MCG PO BEFORE BREAKFAST, #30 TAB 12/24/16 Tamsulosin Hcl* (Tamsulosin Hcl*) 0.4 Mg Cap.er.24h, 0.4 MG PO HS, CAP 12/24/16 Calcitriol* (Calcitriol*) 0.5 Mcg Capsule, 0.5 MCG PO DAILY, CAP 12/24/16 Sevelamer Carbonate* (Renvela*) 800 Mg Tablet, 0.8 GM PO WITH MEALS, TAB 12/24/16 Allergies Allergies: Coded Allergies: No Known Allergy (Unverified , 12/24/16) PMhx/Soc History of Surgery: Yes (Per head Ct, there was Cr[place] before, pt can't remember) Hx Neurological Disorder: No Hx Respiratory Disorders: No Hx Cardiac Disorders: Yes (HTN) Hx Psychiatric Problems: No Hx Miscellaneous Medical Probl: Yes (EtOH abuse, HTN, CKD, BPH, parathyroidism, craniectomy) Hx Substance Use: No (Pt denies) Physical Exam Vitals Vital Signs Date Temp Pulse Resp B/P (MAP) Pulse Ox O2 O2 Flow FiO2 Time Delivery Rate 04/07/18 50 15 160/78 99 Nasal 4.0 05:15 (105) Cannula 04/07/18 52 13 191/93 97 Nasal 4.0 04:25 (125) Cannula 04/07/18 3.5 04:22 04/07/18 Nasal 4 04:01 Cannula 04/07/18 97.2 70 191/93 87 03:47 (125) Physical Exam Const: Mild acute distress Head: Atraumatic Eyes: Normal Conjunctiva ENT: Normal External Ears, Nose and Mouth. Neck: Full range of motion. No meningismus. Resp: Clear to auscultation bilaterally Cardio: Regular papi Abd: Soft, non tender, non distended. Normal bowel sounds Skin: No petechiae or rashes Back: No midline or flank tenderness Ext: No cyanosis, or edema Neur: Unable to perform due to his condition Psych: Unable to perform due to his condition Result Diagram: 04/07/18 0355 04/07/18 0355 Results 24 hrs Laboratory Tests Test 04/07/18 03:46 04/07/18 03:55 Blood Gas Specimen Source Blood arterial Arterial Blood Date Drawn 04/07/2018 4:22:38 AM Arterial Blood pH (Temp corrected) 7.349 Arterial Blood pCO2 (Temp correct) 37.7 mmhg Arterial Blood pO2 (Temp corrected) 81.0 mmHG Arterial Blood HCO3 20.3 mmol/L Arterial Blood Base Excess -4.8 mmol/L Arterial Blood Oxygen Saturation 94.4 mmHG Luis Daniel Test ACCEPTAB Arterial Blood Gas Puncture Site Right Radial Arterial Blood Carboxyhemoglobin 0.3 % Arterial Blood Methemoglobin 0.3 % Blood Gas A-a O2 Differential 103.1 mmHg Oxyhemoglobin Percent 93.8 % Blood Gas Temperature 37.0 C Blood Gas Modality NASAL CANNULA FiO2 32.0 % Blood Gas Notified Whom AA Blood Gas Notified Time 04/07/2018 4:33:19 AM White Blood Count 3.8 10^3/ul Red Blood Count 3.40 10^6/ul Hemoglobin 11.4 g/dl Hematocrit 35.0 % Mean Corpuscular Volume 102.9 fl Mean Corpuscular Hemoglobin 33.5 pg Mean Corpuscular Hemoglobin Concent 32.6 g/dl Red Cell Distribution Width 14.6 % Platelet Count 156 10^3/UL Mean Platelet Volume 10.3 fl Immature Granulocytes % 0.300 % Neutrophils % 44.4 % Lymphocytes % 40.6 % Monocytes % 6.3 % Eosinophils % 7.6 % Basophils % 0.8 % Nucleated Red Blood Cells % 0.0 /100WBC Immature Granulocytes # 0.010 10^3/ul Neutrophils # 1.7 10^3/ul Lymphocytes # 1.6 10^3/ul Monocytes # 0.2 10^3/ul Eosinophils # 0.3 10^3/ul Basophils # 0.0 10^3/ul Nucleated Red Blood Cells # 0.0 10^3/ul Prothrombin Time 13.2 Sec Prothrombin Time Ratio 1.0 INR International Normalized Ratio 0.99 Activated Partial Thromboplast Time 23.2 Sec Sodium Level 139 mmol/L Potassium Level 4.8 mmol/L Chloride Level 103 mmol/L Carbon Dioxide Level 18 mmol/L Anion Gap 18 Blood Urea Nitrogen 60 mg/dl Creatinine 7.09 mg/dl Est Glomerular Filtrat Rate mL/min 8 mL/min Glucose Level 154 mg/dl POC Venous Lactate 4.5 mmol/L Calcium Level 9.4 mg/dl Total Bilirubin 0.1 mg/dl Direct Bilirubin 0.00 mg/dl Indirect Bilirubin 0.1 mg/dl Aspartate Amino Transf (AST/SGOT) 22 IU/L Alanine Aminotransferase (ALT/SGPT) 15 IU/L Alkaline Phosphatase 101 IU/L Troponin I 0.077 ng/ml Total Protein 6.8 g/dl Albumin 4.1 g/dl Globulin 2.70 g/dl Albumin/Globulin Ratio 1.51 Current Medications Medications Dose Sig/Jorge L Start Time Status Last (Trade) Ordered Route PRN Stop Time Admin Dose Reason Admin Vancomycin 250 ml @ ONCE ONCE 04/07/18 DC 04/07/18 HCl 125 mls/hr IVPB 04:00 04/07/18 04:48 05:59 Piperacillin 50 ml @ ONCE ONCE 04/07/18 DC 04/07/18 Sod/ 100 mls/hr IVPB 04:00 04/07/18 04:20 Tazobactam 04:29 Sod Procedures/MDM [place] [id number] Radiology Main Line: [phone] DIAGNOSTIC IMAGING REPORT Patient: VIOLETA BAEZ : 1950 Age: 67 Sex: M MR #: [id number] DOS: 04/07/18 0346 Ordering MD: CONSTANCE VALADEZ MD Location: E/R Room/Bed: AMENDMENT: 04/07/2018 5:03:52 AM Brett Jenkins M.d PROCEDURE: CT head without intravenous contrast CLINICAL INDICATION: Altered level of consciousness. COMPARISON: SD CT BRAIN 10/10/2017; CT HEAD 05/29/2017 TECHNIQUE: Axial CT images from skull base to vertex with coronal and sagittal reformats. DOSE: The estimated administered radiation dose was CTDI vol = 39.34 mGy. DLP = 713.51 mGy-cm. One or more of the following dose reduction techniques were used: automated exposure control, adjustment of the mA and/or kV according to patient size, or use of iterative reconstruction. DICOM images are available. FINDINGS: Parenchyma: No acute hemorrhage, large territorial infarction, or mass. The rowell-white matter junctions are intact. No space occupying intra-axial masses or extra-axial fluid collections are present. There is mild to moderate parenchymal volume loss. There are areas of decreased attenuation involving the bilateral subcortical white matter, the bilateral centrum semiovale , smalls radiata , periventricular regions and deep white matter consistent with mild to moderate chronic microvascular white matter ischemic disease. Ventricles: No ventriculomegaly or ventricular effacement. Extra-axial spaces: No herniation or midline shift. Paranasal sinuses: Clear. Mastoids and middle ears: Clear. Visualized orbits: Normal. Vessels: [<There is calcified atherosclerotic arterial plaque identified in the bilateral distal vertebral and bilateral internal carotid arteries.>] Bones: Left frontal and parietal cyn holes. Extracranial soft tissues: Normal. Additional comment: None. IMPRESSION: 1. No acute intracranial pathology. 2. Mild to moderate generalized parenchymal volume loss. 3. Mild to moderate chronic microvascular white matter ischemic disease. 4. Atherosclerosis. 5. Left frontal and parietal cyn holes. RPTAT: HRSR Physician Chidi Date Time Electronically viewed and signed by Dominic Jenkins Physician on 04/07/2018 05:03 RR/ CC: CONSTANCE VALADEZ MD [id number] [place] [address] Radiology Main Line: [phone] DIAGNOSTIC IMAGING REPORT Patient: VIOLETA BAEZ : 1950 Age: 67 Sex: M MR #: [id number] DOS: 04/07/18 0346 Ordering MD: CONSTANCE VALADEZ MD Location: E/R Room/Bed: PROCEDURE: Chest x-ray CLINICAL INDICATION: Possible sepsis. Shortness of breath. Altered level of consciousness. TECHNIQUE: VIEWS: 1 COMPARISON: SD DX CHEST 04/05/2018; SD CR CHEST 04/04/2018; SD CR CHEST 04/02/2018; CR CHEST 12/12/2017 FINDINGS: SUPPORT DEVICES: An electromechanical generator overlies the left lower lateral chest wall. Epidural lead terminates at the approximate T4 level CARDIAC AND MEDIASTINAL SILHOUETTES: Moderate cardiomegaly with aortic cat heters perosis. . LUNGS AND PLEURAL SPACE: Increased bilateral perihilar opacities consistent wit h pulmonary edema secondary to CHF or volume overload. Increased right lower lobe . Increased air space disease or atelectasis. Small right pleural effusion. PNEUMOTHORAX: None. OSSEOUS STRUCTURES: Senescent osseous changes. IMPRESSION: 1. Moderate pulmonary edema secondary to CHF or volume overload. 2. Increased right lower lobe air space disease or atelectasis. 3. Small right pleural effusion RPTAT: HRSR Physician Chidi Date Time Electronically viewed and signed by Dominic Jenkins Physician on 04/07/2018 05:01 RR/ CC: CONSTANCE VALADEZ MD [id number] EKG: Read by emergency physician Rate/Rhythm: Sinus bradycardia 52 beats/min QRS, ST, T-waves: No ST elevation, no T inversion, LVH, lateral ST and T abnormality Impression: Abnormal EKG MEDICAL MAKING DECISION: The patient is a 67-year-old male, presenting with acute septic shock, acute pneumonia, acute fluid overload, acute respiratory failure, acute encephalopathy. He was treated with vancomycin IV, Zosyn IV for acute septic shock. He responded to supplemental O2 The differential diagnoses considered include but are not limited to aspiration pneumonia, pneumonia, CHF, UTI, pyelonephritis, osteomyelitis MDM: Patient's infectious symptoms have not stabilized and the patient is at risk of rapid decompensation. The patient will be admitted for careful hydration, antibiotic therapy, and infectious source control. SEVERE SEPSIS CRITERIA: Infectious source: pna End organ damage indicated by: [Lactate > 2.0 mmol/L Acute Resp Failure (sat < 92% w/o oxygen) SEPSIS MANAGEMENT Time of recognition of septic shock: 4am 3 HOUR BUNDLE Blood cultures x 2 before broad-spectrum antibiotics: [Yes] 30 ml/kg NS bolus [not Completed b/c he has concurrent acute fluid overload Initial lactate []4.5 Repeat lactate Pending SEPTIC SHOCK ASSESSMENT: [yes lactic acid > 4.0 [No] Persistent hypotension (SBP < 90 or 40 mmHg drop, MAP < 65) despite 30 mL/kg IV fluid bolus VOLUME REASSESSMENT FOR SEPTIC SHOCK: Reevaluation Time: []5:15 am Temp []97.2, BP []160/78, HR []50, RR[]15, Pox []99% Heart [Regular papi] Lungs [No crackles] Skin [Warm & dry] Cap Refill [Less than 2 seconds] Peripheral pulses [Radially present] PERSISTENT HYPOTENSION TREATMENT: Comfort care [No] Central line [Not Required] Vasopressor started [Not required] I considered further perfusion assessment with CVP measurement, SCVO2, bedside ultrasound volume assessment, passive leg raise, trial of further fluid bolus. And proceeded with [30 ml/kg fluid bolus of NSS, broad spectrum antibiotics, and admission.] CRITICAL CARE Critical care time [35] minutes Emergent fluid management while maintaining close respiratory support. Provision of immediate and broad-spectrum antibiotic therapy. Simultaneous assessment for possible sources in order to direct targeted therapy. Consideration for invasive and chemical support to prevent cardiopulmonary collapse. Critical care time is independent of procedures performed. Departure Diagnosis: Primary Impression: Septic shock Additional Impressions: PNA (pneumonia) Fluid overload Respiratory failure Encephalopathy acute Anemia Thrombocytopenia Leukopenia Condition: Serious Comments I discussed the findings with the patient. I discussed the patient with the hospitalist Dr Jose at 5:30 am. who was made aware of the lab, the treatment, the patient condition. The patient is admitted to [facility] Disclaimer: Inadvertent spelling and grammatical errors are likely due to EHR/dictation software use and do not reflect on the overall quality of patient care. Also, please note that the electronic time recorded on this note does not necessarily reflect the actual time of the patient encounter. CONSTANCE VALADEZ MD Apr 07, 2018 03:45
[2018-04-07] MEDS ORDERED: VANCOMYCIN 1 GM (PMX) 250 ML IVPB ONE (04:00)
[2018-04-07] MEDS ORDERED: PIPER-TAZO 2.25 GM (PMX) 50 ML IVPB ONE (04:00)
[2018-04-07] MEDS ORDERED: ONDANSETRON 4 MG INJ IV PRN (07:00)
[2018-04-07] MEDS ORDERED: NACL 0.9% 3 ML SYG IV SCH (07:00)
[2018-04-07] MEDS ORDERED: ALBUTEROL/IPRATROPIUM (NEB) 3 ML AMP HHN PRN (07:00)
[2018-04-07] MEDS ORDERED: ACETAMINOPHEN 325 MG TAB PO PRN (07:00)
[2018-04-07] MEDS: FUROSEMIDE 20 MG INJ IV SCH (08:29)
[2018-04-07] MEDS: LEVOTHYROXINE 100 MCG TAB PO SCH (08:30)
[2018-04-07] MEDS: AMLODIPINE 10 MG TAB PO SCH (08:30)
--- NOTE | 2018-04-07 10:50 | HP ---
Date/Time of Note Date/Time of Note DATE: 04/07/18 TIME: 10:50 Assessment/Plan VTE Prophylaxis Pharmacological prophylaxis: heparin Lines/Catheters IV C[facility]ter Type (from [facility]): Peripheral IV Assessment/Plan Hospital Course 67-year-old male who was discharged from [facility] yesterday, the reason he was there is unclear, patient is a poor historian who was sent to the emergency room because of altered mentation. He is currently managed on telemetry as follows: 1. Alteration in mental status: -Because of this is unclear, the patient does not deny that he might have been smoking some marijuana, but he also did have some lactic acidosis suggestive of hypo-oxygenation which also could be attributed to smoking marijuana but also chest x-ray suggestive of fluid overload versus new diagnosis of CHF. -Either way, mental status is back to baseline at this time -f/u urine toxicology screen -ambulate as tolerated, PT eval if necessary 2. Acute on chronic kidney disease stage V without hyperkalemia -There is however evidence of fluid overload on chest x-ray -Creatinine levels at this time 7.0 -last Cr here 12/24 was 4. 3. Fluid overload/newly diagnosed CHF 4. Lactic acidosis -see above / improved 5. Known hepatitis C with undetectable RNA on serology December 2016 6. Positive hepatitis B core antibody suggestive of prior infection 7. Chronic marijuana user -Due to comorbidities above, patient will likely be better of quitting smoking marijuana -He was counseled about this for at least 3 minutes. 8. Hypertension: Patient with suboptimal control at this time -Resume home meds, titrate as indicated 9. History of hypothyroidism: -Resume home Synthroid dosing -Follow-up TSH 10. History of subdural hemorrhage December 2016 and prior to that patient had craniotomy likely for similar. 11. S/p Pacemaker placement 12. Cannot rule out underlying pneumonia, however patient without cough or fever, no abx for now Dispo: -patient will benefit from being monitored for CXR findings and SERAFIN -will get records from [facility] and get cardiology and nephrology input -if patient remains stable, plan to discharge back to assisted living addendum: further records obtained revealed patient is a dialysis patient at [facility], nephrology to dialyse. Result Diagram: 04/07/18 0355 04/07/18 0355 Results 24hrs Laboratory Tests Test 04/07/18 03:46 04/07/18 03:55 04/07/18 06:15 04/07/18 07:31 Blood Gas Specimen Blood arterial Source Arterial Blood 04/07/2018 4:22:38 Date Drawn AM Arterial Blood pH 7.349 L (Temp corrected) Arterial Blood 37.7 pCO2 (Temp correct) Arterial Blood pO2 81.0 (Temp corrected) Arterial Blood 20.3 L HCO3 Arterial Blood -4.8 L Base Excess Arterial Blood 94.4 L Oxygen Saturation Luis Daniel Test ACCEPTAB Arterial Blood Gas Right Radial Puncture Site Arterial 0.3 Blood Carboxyhemog lobin Arterial Blood 0.3 Methemoglobin Blood Gas A-a O2 103.1 H Differential Oxyhemoglobin 93.8 Percent Blood Gas 37.0 Temperature Blood Gas Modality NASAL CANNULA FiO2 32.0 Blood Gas Notified AA Whom Blood Gas Notified 04/07/2018 4:33:19 Time AM White Blood Count 3.8 #L Red Blood Count 3.40 L Hemoglobin 11.4 L Hematocrit 35.0 #L Mean Corpuscular 102.9 H Volume Mean Corpuscular 33.5 H Hemoglobin Mean Corpuscular 32.6 Hemoglobin Concent Red Cell 14.6 H Distribution Width Platelet Count 156 # Mean Platelet 10.3 Volume Immature 0.300 Granulocytes % Neutrophils % 44.4 Lymphocytes % 40.6 Monocytes % 6.3 Eosinophils % 7.6 H Basophils % 0.8 Nucleated Red 0.0 Blood Cells % Immature 0.010 Granulocytes # Neutrophils # 1.7 Lymphocytes # 1.6 Monocytes # 0.2 L Eosinophils # 0.3 Basophils # 0.0 Nucleated Red 0.0 Blood Cells # Prothrombin Time 13.2 Prothrombin Time 1.0 Ratio INR International 0.99 Normalized Ratio Activated 23.[address] Time Sodium Level 139 Potassium Level 4.8 Chloride Level 103 Carbon Dioxide 18 L Level Anion Gap 18 H Blood Urea 60 H Nitrogen Creatinine 7.09 H Est Glomerular 8 L Filtrat Rate mL/min Glucose Level 154 POC Venous Lactate 4.5 *H 1.3 Calcium Level 9.4 Total Bilirubin 0.1 L Direct Bilirubin 0.00 Indirect Bilirubin 0.1 Aspartate Amino 22 Transf (AST/SGOT) Alanine 15 Aminotransferase ( ALT/SGPT) Alkaline 101 Phosphatase Troponin I 0.077 Total Protein 6.8 Albumin 4.1 Globulin 2.70 Albumin/Globulin 1.51 Ratio Urine Color YELLOW Urine Clarity CLEAR Urine pH 6.0 Urine Specific 1.012 [place] Urine Ketones NEGATIVE Urine Nitrite NEGATIVE Urine Bilirubin NEGATIVE Urine Urobilinogen NEGATIVE Urine Leukocyte NEGATIVE Esterase Urine Microscopic 2 RBC Urine Microscopic 1 WBC Urine Bacteria FEW A Urine Hemoglobin NEGATIVE Urine Glucose 1+ H Urine Total 2+ H Protein Test 04/07/18 08:08 Lactic Acid Level 0.7 HPI/ROS Admit Date/Time Admit Date/Time Apr 07, 2018 at 05:31 Hx of Present Illness 67-year-old male with past medical history of chronic kidney disease stage V hypertension and subdural hemorrhage status post craniotomy in the past. Note that the patient was recently admitted in December 2016 with a subdural hemorrhage but that was not when he had the craniotomy. He has had the craniotomy prior to that. He resides at an assisted living, and was recently discharged from [facility] yesterday. He was transferred to the emergency room again today because he was acting abnormal. The patient unfortunately does not recall the circumstances around his admission, but at this time is fully alert and oriented and reports that this is his baseline. He does tell me that he smokes marijuana daily and when I asked him if he had been smoking marijuana after his discharge from the hospital yesterday, he told me he could not remember. A CT scan of the brain done in the emergency room did not show any acute abnormalities, but a chest x-ray did show right lower lobe airspace disease/atelectasis with moderate pulmonary edema suggestive of CHF and volume overload. Patient does not have a prior echo in this facility. He does have a history of presenting with severely elevated blood pressure suggestive of noncompliance to home antihypertensive regimen. ROS 12 point review if systems was done and pertinent findings are as noted. PMH/Family/Social Past Medical History Medications Current Medications IV Flush (NS 3 ml) 3 ml PER PROTOCOL IV ; Start 04/07/18 at 07:00 Ondansetron HCl (Zofran Inj) 4 mg Q6H PRN IV NAUSEA/VOMITING; Start 04/07/18 at 07:00 Acetaminophen (Tylenol Tab) 650 mg Q6H PRN PO .PAIN 1-3 OR TEMP; Start 04/07/18 at 07:00 Albuterol/ Ipratropium (Duoneb) 3 ml Q2H RESP THERAPY PRN HHN SHORTNESS OF BREATH; Start 04/07/18 at 07:00 Amlodipine Besylate (Norvasc) 10 mg DAILY PO Last administered on 04/07/18at 08:30; Admin Dose 10 MG; Start 04/07/18 at 09:00 Hydralazine HCl (Apresoline) 10 mg Q6H PO Last administered on 04/07/18at 08:30; Admin Dose 10 MG; Start 04/07/18 at 07:00 Levothyroxine Sodium (Synthroid) 100 mcg BEFORE BREAKFAST PO Last administered on 04/07/18at 08:30; Admin Dose 100 MCG; Start 04/07/18 at 07:00 Tamsulosin HCl (Flomax) 0.4 mg HS PO ; Start 04/07/18 at 21:00 Furosemide (Lasix) 20 mg DAILY IV Last administered on 04/07/18at 08:29; Admin Dose 20 MG; Start 04/07/18 at 09:00 Influenza Virus Vaccine Quadrival (Fluzone) 0.5 ml ONCE ONCE IM* ; Start 04/07/18 at 11:00; Stop 04/07/18 at 11:01 Coded Allergies: No Known Allergy (Unverified , 12/24/16) Past Surgical History Past Surgical Hx: other Family History Significant Family History: no pertinent family hx Social History Smoking Status: Current some day smoker Exam/Review of Systems Vital Signs Vitals Vital Signs Date Temp Pulse Resp B/P (MAP) Pulse Ox O2 O2 Flow FiO2 Time Delivery Rate 04/07/18 98.0 55 20 184/98 97 Room Air 08:04 (126) Nasal Cannula 04/07/18 2.0 06:29 . Exam Constitutional: alert, oriented; No distress Psych: nl mood/affect Head: normocephalic Eyes: PERRL ENMT: mucosa pink and moist Neck: supple Respiratory: clear to auscultation, crackles/rales (???), diminished breath sounds; No labored breathing, No wheezing Cardiovascular: regular rate and rhythm; No murmurs/extra sounds Gastrointestinal: soft, non-tender, bowel sounds Extremities: No edema Neurological: nl mental status, nl speech, lethargic; No confused, No focal weakness Skin: No rash or lesions Additional Comments AMENDMENT: 04/07/2018 5:03:52 AM Brett Jenkins M.d PROCEDURE: CT head without intravenous contrast CLINICAL INDICATION: Altered level of consciousness. COMPARISON: SD CT BRAIN 10/10/2017; CT HEAD 05/29/2017 TECHNIQUE: Axial CT images from skull base to vertex with coronal and sagittal reformats. DOSE: The estimated administered radiation dose was CTDI vol = 39.34 mGy. DLP = 713.51 mGy-cm. One or more of the following dose reduction techniques were used: automated exposure control, adjustment of the mA and/or kV according to patient size, or use of iterative reconstruction. DICOM images are available. FINDINGS: Parenchyma: No acute hemorrhage, large territorial infarction, or mass. The rowell-white matter junctions are intact. No space occupying intra-axial masses or extra-axial fluid collections are present. There is mild to moderate parenchymal volume loss. There are areas of decreased attenuation involving the bilateral subcortical white matter, the bilateral centrum semiovale , smalls radiata , periventricular regions and deep white matter consistent with mild to moderate chronic microvascular white matter ischemic disease. Ventricles: No ventriculomegaly or ventricular effacement. Extra-axial spaces: No herniation or midline shift. Paranasal sinuses: Clear. Mastoids and middle ears: Clear. Visualized orbits: Normal. Vessels: [<There is calcified atherosclerotic arterial plaque identified in the bilateral distal vertebral and bilateral internal carotid arteries.>] Bones: Left frontal and parietal cyn holes. Extracranial soft tissues: Normal. Additional comment: None. IMPRESSION: 1. No acute intracranial pathology. 2. Mild to moderate generalized parenchymal volume loss. 3. Mild to moderate chronic microvascular white matter ischemic disease. 4. Atherosclerosis. 5. Left frontal and parietal cyn holes. RPTAT: HRSR Dominic Jenkins Physician Date Time Electronically viewed and signed by Dominic Jenkins Physician on 04/07/2018 05:03 RR/ CC: CONSTANCE VALADEZ MD [id number] PROCEDURE: Chest x-ray CLINICAL INDICATION: Possible sepsis. Shortness of breath. Altered level of consciousness. TECHNIQUE: VIEWS: 1 COMPARISON: SD DX CHEST 04/05/2018; SD CR CHEST 04/04/2018; SD CR CHEST 04/02/2018; CR CHEST 12/12/2017 FINDINGS: SUPPORT DEVICES: An electromechanical generator overlies the left lower lateral chest wall. Epidural lead terminates at the approximate T4 level CARDIAC AND MEDIASTINAL SILHOUETTES: Moderate cardiomegaly with aortic catheters perosis. . LUNGS AND PLEURAL SPACE: Increased bilateral perihilar opacities consistent with pulmonary edema secondary to CHF or volume overload. Increased right lower lobe . Increased air space disease or atelectasis. Small right pleural effusion. PNEUMOTHORAX: None. OSSEOUS STRUCTURES: Senescent osseous changes. IMPRESSION: 1. Moderate pulmonary edema secondary to CHF or volume overload. 2. Increased right lower lobe air space disease or atelectasis. 3. Small right pleural effusion RPTAT: HRSR Dominic Jenkins Physician Date Time Electronically viewed and signed by Dominic Jenkins Physician on 04/07/2018 05:01 RR/ CC: CONSTANCE VALADEZ MD [id number] . NORMA BANDA Apr 07, 2018 10:50
--- NOTE | 2018-04-07 11:44 | CONS ---
Assessment/Plan Assessment/Plan Assessment/Plan (Daily) 1. acute fluid overload 2. ESRD on HD MWF at [facility] HD center 3. H/o HTN 4. H/o HL 5. Anemia of ESRD 6. Sinus bradycardia 7. hypertension, subdural hemorrhage, status post craniotomy in 2017, prior tobacco intake Plan: see on Tele floor, CXR showed Pulmonary congestion but pt is on RA continue home medications will plan for HD in AM, pt regular schedule for HD is MWF [facility] has been following on patien t will follow up Thanks for consultation Consultation Date/Type/Reason Admit Date/Time Apr 07, 2018 at 05:31 Date of Consultation: Apr 07, 2018 Type of Consult NEPHROLOGY Reason for Consultation Acute kidney injury Requesting Provider: NORMA BANDA Date/Time of Note DATE: 04/07/18 TIME: 11:44 Hx of Present Illness 67 M with PMHx of ESRD on HD, HTN, H/o Previous NM who was recently discharged from [facility] yesterday came to [facility] ER with SOB and back pain and weakness, he is noted to have fluid overload on X ray chest and getting admitted for HD need, pt has LUE AVF in place, he has been on HD MWF at [facility] HD center. Renal has been consulted for HD need. Constitutional: no complaints Eyes: no complaints ENT: no complaints Respiratory: cough, pleuritic pain, shortness of breath Cardiovascular: no complaints Gastrointestinal: no complaints Genitourinary: no complaints Musculoskeletal: no complaints Skin: no complaints Neurologic: no complaints Endocrine: no complaints Lymphatic: no complaints Psychological: no complaints Immunologic: no complaints Past Medical History Medical History: high cholesterol, hypertension, other (h/o previous NM, ESRD on HD ) Home Meds Reported Medications Quetiapine Fumarate* (Quetiapine Fumarate*) 25 Mg Tablet, 25 MG PO QHS, TAB 04/07/18 Escitalopram Oxalate* (Escitalopram Oxalate*) 10 Mg Tablet, 10 MG PO DAILY, #30 TAB 04/07/18 Donepezil* (Donepezil*) 5 Mg Tablet, 5 MG PO QHS, #30 TAB 04/07/18 Rivaroxaban* (Xarelto*) 15 Mg Tablet, 15 MG PO DAILY, TAB 04/07/18 Lisinopril* (Lisinopril*) 10 Mg Tablet, 10 MG PO BID, #30 TAB 04/07/18 Metoprolol Succinate* (Toprol XL*) 100 Mg Tab.sr.24h, 100 MG PO DAILY, #30 TAB 04/07/18 Ranitidine Hcl (Ranitidine Hcl) 150 Mg Capsule, 150 MG PO DAILY, #60 CAP 04/07/18 Atorvastatin* (Atorvastatin*) 40 Mg Tablet, 40 MG PO QHS, #30 TAB 04/07/18 Calcium Acetate* (Calcium Acetate*) 667 Mg Capsule, 667 MG PO WITH MEALS, #30 CAP 04/07/18 Levothyroxine Sodium* (Levothyroxine Sodium*) 25 Mcg Tablet, 25 MCG PO BEFORE BREAKFAST, #30 TAB 04/07/18 Allopurinol* (Allopurinol*) 100 Mg Tablet, 100 MG PO DAILY, TAB 04/07/18 Clopidogrel Bisulfate (Clopidogrel) 75 Mg Tablet, 75 MG PO DAILY, #30 TAB 04/07/18 Temazepam* (Temazepam*) 15 Mg Capsule, 15 MG PO HS PRN for INSOMNIA, CAP 04/07/18 Hydralazine Hcl* (Hydralazine Hcl*) 10 Mg Tablet, 10 MG PO Q6H, #60 TAB 12/24/16 Amlodipine Besylate* (Norvasc*) 10 Mg Tablet, 10 MG PO DAILY, TAB 12/24/16 Levothyroxine Sodium* (Synthroid*) 100 Mcg Tablet, 100 MCG PO BEFORE BREAKFAST, #30 TAB 12/24/16 Tamsulosin Hcl* (Tamsulosin Hcl*) 0.4 Mg Cap.er.24h, 0.4 MG PO HS, CAP 12/24/16 Calcitriol* (Calcitriol*) 0.5 Mcg Capsule, 0.5 MCG PO DAILY, CAP 12/24/16 Sevelamer Carbonate* (Renvela*) 800 Mg Tablet, 0.8 GM PO WITH MEALS, TAB 12/24/16 Medications Current Medications IV Flush (NS 3 ml) 3 ml PER PROTOCOL IV ; Start 04/07/18 at 07:00 Ondansetron HCl (Zofran Inj) 4 mg Q6H PRN IV NAUSEA/VOMITING; Start 04/07/18 at 07:00 Acetaminophen (Tylenol Tab) 650 mg Q6H PRN PO .PAIN 1-3 OR TEMP; Start 04/07/18 at 07:00 Albuterol/ Ipratropium (Duoneb) 3 ml Q2H RESP THERAPY PRN HHN SHORTNESS OF BREATH; Start 04/07/18 at 07:00 Amlodipine Besylate (Norvasc) 10 mg DAILY PO Last administered on 04/07/18at 08:30; Admin Dose 10 MG; Start 04/07/18 at 09:00 Hydralazine HCl (Apresoline) 10 mg Q6H PO Last administered on 04/07/18at 08:30; Admin Dose 10 MG; Start 04/07/18 at 07:00 Levothyroxine Sodium (Synthroid) 100 mcg BEFORE BREAKFAST PO Last administered on 04/07/18at 08:30; Admin Dose 100 MCG; Start 04/07/18 at 07:00 Tamsulosin HCl (Flomax) 0.4 mg HS PO ; Start 04/07/18 at 21:00 Furosemide (Lasix) 20 mg DAILY IV Last administered on 04/07/18at 08:29; Admin Dose 20 MG; Start 04/07/18 at 09:00 Sevelamer Carbonate (Renvela) 0.8 gm WITH MEALS PO ; Start 04/07/18 at 11:50 Allergies: Coded Allergies: No Known Allergy (Unverified , 12/24/16) Past Surgical History Past Surgical Hx: other Family History Significant Family History: no pertinent family hx Social History Alcohol Use: none Smoking Status: Current some day smoker Exam/Review of Systems Exam Vitals Vital Signs Date Temp Pulse Resp B/P (MAP) Pulse Ox O2 O2 Flow FiO2 Time Delivery Rate 04/07/18 98.0 56 20 158/77 93 Nasal 11:10 (104) Cannula 04/07/18 2.0 08:10 Constitutional: alert, oriented Psych: no complaints Head: normocephalic Eyes: nl conjunctiva ENMT: nl external ears & nose Neck: supple, non-tender Respiratory: crackles/rales, diminished breath sounds Cardiovascular: regular rate and rhythm, nl pulses Gastrointestinal: soft, non-tender Musculoskeletal: nl extremities to inspection, swelling Extremities: normal pulses Neurological: T[employer] II-XII intact, nl mental status, nl speech, nl strength Skin: nl turgor Lymph: nl lymph nodes Results Result Diagram: 04/07/18 0355 04/07/18 0355 Results 24hrs Laboratory Tests Test 04/07/18 03:46 04/07/18 03:55 04/07/18 06:15 04/07/18 07:31 Blood Gas Specimen Blood arterial Source Arterial Blood 04/07/2018 4:22:38 Date Drawn AM Arterial Blood pH 7.349 L (Temp corrected) Arterial Blood 37.7 pCO2 (Temp correct) Arterial Blood pO2 81.0 (Temp corrected) Arterial Blood 20.3 L HCO3 Arterial Blood -4.8 L Base Excess Arterial Blood 94.4 L Oxygen Saturation Luis Daniel Test ACCEPTAB Arterial Blood Gas Right Radial Puncture Site Arterial 0.3 Blood Carboxyhemog lobin Arterial Blood 0.3 Methemoglobin Blood Gas A-a O2 103.1 H Differential Oxyhemoglobin 93.8 Percent Blood Gas 37.0 Temperature Blood Gas Modality NASAL CANNULA FiO2 32.0 Blood Gas Notified AA Whom Blood Gas Notified 04/07/2018 4:33:19 Time AM White Blood Count 3.8 #L Red Blood Count 3.40 L Hemoglobin 11.4 L Hematocrit 35.0 #L Mean Corpuscular 102.9 H Volume Mean Corpuscular 33.5 H Hemoglobin Mean Corpuscular 32.6 Hemoglobin Concent Red Cell 14.6 H Distribution Width Platelet Count 156 # Mean Platelet 10.3 Volume Immature 0.300 Granulocytes % Neutrophils % 44.4 Lymphocytes % 40.6 Monocytes % 6.3 Eosinophils % 7.6 H Basophils % 0.8 Nucleated Red 0.0 Blood Cells % Immature 0.010 Granulocytes # Neutrophils # 1.7 Lymphocytes # 1.6 Monocytes # 0.2 L Eosinophils # 0.3 Basophils # 0.0 Nucleated Red 0.0 Blood Cells # Prothrombin Time 13.2 Prothrombin Time 1.0 Ratio INR International 0.99 Normalized Ratio Activated 23.[address] Time Sodium Level 139 Potassium Level 4.8 Chloride Level 103 Carbon Dioxide 18 L Level Anion Gap 18 H Blood Urea 60 H Nitrogen Creatinine 7.09 H Est Glomerular 8 L Filtrat Rate mL/min Glucose Level 154 POC Venous Lactate 4.5 *H 1.3 Calcium Level 9.4 Total Bilirubin 0.1 L Direct Bilirubin 0.00 Indirect Bilirubin 0.1 Aspartate Amino 22 Transf (AST/SGOT) Alanine 15 Aminotransferase ( ALT/SGPT) Alkaline 101 Phosphatase Troponin I 0.077 Total Protein 6.8 Albumin 4.1 Globulin 2.70 Albumin/Globulin 1.51 Ratio Urine Color YELLOW Urine Clarity CLEAR Urine pH 6.0 Urine Specific 1.012 [place] Urine Ketones NEGATIVE Urine Nitrite NEGATIVE Urine Bilirubin NEGATIVE Urine Urobilinogen NEGATIVE Urine Leukocyte NEGATIVE Esterase Urine Microscopic 2 RBC Urine Microscopic 1 WBC Urine Bacteria FEW A Urine Hemoglobin NEGATIVE Urine Glucose 1+ H Urine Total 2+ H Protein Urine Opiates Negative Screen Urine Barbiturates Negative Urine Amphetamines Negative Screen Urine Negative Benzodiazepines Screen Urine Cocaine Negative Screen Urine Cannabinoids Negative Test 04/07/18 08:08 Lactic Acid Level 0.7 Medications Medication Current Medications IV Flush (NS 3 ml) 3 ml PER PROTOCOL IV ; Start 04/07/18 at 07:00 Ondansetron HCl (Zofran Inj) 4 mg Q6H PRN IV NAUSEA/VOMITING; Start 04/07/18 at 07:00 Acetaminophen (Tylenol Tab) 650 mg Q6H PRN PO .PAIN 1-3 OR TEMP; Start 04/07/18 at 07:00 Albuterol/ Ipratropium (Duoneb) 3 ml Q2H RESP THERAPY PRN HHN SHORTNESS OF BREATH; Start 04/07/18 at 07:00 Amlodipine Besylate (Norvasc) 10 mg DAILY PO Last administered on 04/07/18at 08:30; Admin Dose 10 MG; Start 04/07/18 at 09:00 Hydralazine HCl (Apresoline) 10 mg Q6H PO Last administered on 04/07/18 08:30; Admin Dose 10 MG; Start 04/07/18 at 07:00 Levothyroxine Sodium (Synthroid) 100 mcg BEFORE BREAKFAST PO Last administered on 04/07/18at 08:30; Admin Dose 100 MCG; Start 04/07/18 at 07:00 Tamsulosin HCl (Flomax) 0.4 mg HS PO ; Start 04/07/18 at 21:00 Furosemide (Lasix) 20 mg DAILY IV Last administered on 04/07/18at 08:29; Admin Dose 20 MG; Start 04/07/18 at 09:00 Sevelamer Carbonate (Renvela) 0.8 gm WITH MEALS PO ; Start 04/07/18 at 11:50 AMANDA HUERTAS MD Apr 07, 2018 11:44
[2018-04-07] MEDS: SEVELAMER CARBONATE 0.8 GM PKT PO SCH ×2 (12:29→17:47)
[2018-04-07] MEDS: CITRIC ACID/NA CITRATE 30 ML CUP PO SCH ×2 (12:29→21:05)
[2018-04-07] MEDS ORDERED: SODIUM CHLORIDE 0.9% 1L BAG IV PRN (14:30)
[2018-04-07] MEDS ORDERED: ALBUMIN HUMAN 25% 50 ML IV PRN (14:30)
--- NOTE | 2018-04-07 15:08 | RADRPT ---
Echocardiogram Report Patient Name: Bertram BAEZ ID: [id number] : 1950 (68y )Study Date: 04/07/2018 1:26:38 PM Gender: MAccession #: [id number] Tech: Zena Cevallos RDCS Location: [facility] Ref.Physician: NORMA BANDA Height(Cm): BSA: Weight(Kg): Quality: AdequateAccount #: Procedures: Echocardiographic Report: Transthoracic echocardiogram with complete 2D, M-Mode, and doppler examination. Indications: Congestive Heart Failure. Measurements: 2D/M Mode Doppler Measurement Value Normal Range Measurement Value Normal Range LVIDd 2D 6.5 [ 4.2 - 5.8 ] cm AV Peak Edgardo 1.7 [ 100.0 - 170.0 ] cm/sec LVIDs 2D 4.3 [ 2.5 - 4.0 ] cm AV Peak PG 11.0 [ 2.0 - 9.0 ] mmHg LVPWd 2D 1.1 [ 0.6 - 1.0 ] cm LVOT Peak Edgardo 1.3 [ 70.0 - 110.0 ] cm/sec IVSd 2D 1.4 [ 0.6 - 1.0 ] cm LVOT Peak PG 7.0 [ 2.0 - 6.0 ] mmHg AoR Diam 2D 3.2 [ 2.6 - 3.4 ] cm MV E Peak Edgardo 1.0 [ 60.0 - 130.0 ] cm/sec EDV 2D 214.0 [ 62.0 - 150.0 ] ml MV A Peak Edgardo 0.9 [ 100.0 - 120.0 ] cm/sec ESV 2D 84.4 [ 21.0 - 61.0 ] ml MV E/A 1.0 [ 0.8 - 1.5 ] ratio EF 2D 60.6 [ 52.0 - 72.0 ] percent MV Decel Time 204 [ 104 - 258 ] msec LA Dimen 2D 5.0 [ 3.0 - 4.0 ] cm Lat E` Edgardo 0.1 [ 10.0 - 15.0 ] cm/sec Lateral E/E` 19.2 [ 1.0 - 2.0 ] ratio MV E/A 1.0 [ 0.8 - 1.5 ] ratio TR Peak Edgardo 3.0 [ 100.0 - 280.0 ] cm/sec TR Peak PG 37.0 mmHg RVSP 52.0 [ 10.0 - 36.0 ] mmHg RA Pressure 15.0 mmHg Findings: Left Ventricle: Normal left ventricular cavity size. Moderate concentric left ventricular hypertrophy. Severe left ventricular systolic dysfunction. Ejection fraction is visually estimated at 25-30 %. Tissue Doppler/Mitral Doppler indices are consistent with impaired relaxation (Stage I diastolic dysfunction). These segments of the LV are akinetic apical anterior segment, apical lateral segment, apical inferior segment and apical septum segment. Right Ventricle: Normal right ventricular size. Normal right ventricular systolic function. Left Atrium: There is moderate enlargement of left atrium. Right Atrium: The right atrium is normal in size. Mitral Valve: Mitral valve leaflets appear mildly thickened. Mild mitral annular calcification. Trace mitral regurgitation. Aortic Valve: No significant aortic stenosis or insufficiency. Aortic cusps appear mildly calcified. Tricuspid Valve: Normal appearance of the tricuspid valve. Estimated peak PA systolic pressure 52 mmHg. There is mild tricuspid regurgitation. Pulmonic Valve: Normal pulmonic valve appearance. Pericardium: Normal pericardium with no significant pericardial effusion. Pleural effusion seen. Aorta: Normal aortic root. IVC: Dilated IVC without respiratory collapse consistent with elevated right atrial pressure. Conclusions: Normal left ventricular cavity size. Moderate concentric left ventricular hypertrophy. Severe left ventricular systolic dysfunction. Ejection fraction is visually estimated at 25-30 %. Tissue Doppler/Mitral Doppler indices are consistent with impaired relaxation (Stage I diastolic dysfunction). These segments of the LV are akinetic apical anterior segment, apical lateral segment, apical inferior segment and apical septum segment. There is moderate enlargement of left atrium. Mitral valve leaflets appear mildly thickened. Mild mitral annular calcification. Trace mitral regurgitation. Normal appearance of the tricuspid valve. Estimated peak PA systolic pressure 52 mmHg. There is mild tricuspid regurgitation. Electronically Signed By: Rick Nichols 2018-04-07 15:08:10 PST
--- NOTE | 2018-04-07 16:15 | CONS ---
DATE OF ADMISSION: 04/07/2018 DATE OF CONSULTATION: 04/07/2018 TYPE OF CONSULTATION: Cardiology. REASON FOR CONSULTATION: Congestive heart failure, permanent pacemaker. REQUESTING PHYSICIAN: Norma Banda MD, from the hospitalist service. HISTORY OF PRESENT ILLNESS: Mr. Gaines is a 67-year-old male with history of chronic kidney disease, not on hemodialysis, hypertension, subdural hemorrhage, status post craniotomy in 2017, prior tobacc o intake, who presents with altered mental state and signs of volume overload. Upon arrival, tempera ture of 97.2, blood pressure 191/93, pulse 70, satting 87%. The patient's labs were notable white bl ood cell count of 3.8, hemoglobin 11.4, platelet count 156, sodium 139, potassium 4.8, creatinine 7, BUN 60, INR of 0.99. Tox screen negative. UA negative. The patient underwent a chest x-ray reveali ng moderate pulmonary edema secondary to CHF or volume overload. Head CT revealed no acute intracran ial pathology, mild to moderate generalized parenchymal volume loss, mild to moderate chronic white m atter ischemic changes. Renal ultrasound revealed nonobstructing left intrarenal calculi. The patie nt's electrocardiogram revealed sinus bradycardia, rate of 52 with a normal axis, borderline anterior progression, anteroseptal Q's, nonspecific ST-T wave abnormalities diffusely. The patient has been admitted to the floor and since admit to floor denies chest pain, shortness of breath. Luckily, this patient is a reliable historian. The patient continues to have elevated systolic blood pressures an d ongoing bradycardia. PAST MEDICAL HISTORY: As above in HPI. MEDICATIONS CURRENTLY IN HOSPITAL: 1. Flomax 0.4 mg daily. 2. Bicitra. 3. Renvela. 4. Norvasc 10 mg daily. 5. Lasix. 6. Hydralazine 10 mg p.o. q.6. 7. Synthroid 100 mcg daily. ALLERGIES: NO KNOWN DRUG ALLERGIES. SOCIAL HISTORY: Quit tobacco x2 weeks per patient. It is unclear this is true or not. Social EtOH, none recently. Marijuana use by chart biopsy. FAMILY HISTORY: No history of sudden cardiac or early CAD. REVIEW OF SYSTEMS: As above in HPI. CONSTITUTIONAL: No fevers, chills. PULMONARY: Shortness of breath. CARDIOVASCULAR: Congestive heart failure. GASTROINTESTINAL: No vomiting. GENITOURINARY: Renal failure. NEUROLOGIC: Altered mental state, history of hemorrhagic CVA. PSYCHIATRIC: No documented psychiatric history. ENDOCRINE: No documented history of diabetes mellitus or thyroid disease. PHYSICAL EXAMINATION: VITAL SIGNS: Temperature 98, blood pressure 158/77, pulse 56, respiratory rate 20, saturating 93%. GENERAL: The patient is alert, awake, in no acute distress. NECK: JVP is approximately 9 cm of water. CHEST: Fair air movement throughout with mild decreased breath sounds at bases bilaterally. HEART: Bradycardic, regular rhythm, normal S1, S2, I/ systolic murmur. ABDOMEN: Positive bowel sounds, soft. EXTREMITIES: No significant pitting edema, 1+ pulses bilateral posterior tibial, dorsalis pedis. LABORATORIES: As above in HPI from today. No further labs for my review at this time. IMAGING STUDIES: As above in HPI. No further imaging studies for my review at this time. ELECTROCARDIOGRAM: As in HPI. No further electrocardiogram for my review at this time. IMPRESSION: 1. Congestive heart failure in the setting of acute on chronic renal failure, question of volume ove rload, question systolic versus diastolic, appears to be likely acute on chronic. 2. Hypertension, uncontrolled. 3. Abnormal electrocardiogram with anteroseptal Q's, assess for acute coronary syndrome. 4. History of coronary artery disease. 5. Altered mental state. 6. Bradycardia with elevated blood pressures. 7. Dyslipidemia. 8. Psychiatric disorder. 9. Hypothyroidism. 10. History of chronic obstructive pulmonary disease. 11. Former tobacco intake. 12. History of paroxysmal atrial fibrillation by chart biopsy. 13. Acute on chronic renal failure. RECOMMENDATIONS: 1. At this time, we would maintain the patient on telemetry monitoring to follow rhythm and rate con trol closely. 2. We will check a 2D echo for this patient's ejection fraction, wall motion, rule out any major beto ve abnormalities. 3. Continue the patient's Norvasc to control blood pressure. We will increase the patient's hydrala zine to improve overall systolic blood pressure control. 4. Continue the patient's Lasix diuresis, following strict I's and O's, creatinine to grade diuresis closely. 5. Ongoing nephrology evaluation of acute on chronic renal failure. 6. Check fasting lipid panel for general risk stratification and initiate lipid-lowering medication as necessary. 7. Complete a rule out for myocardial infarction to ensure the patient's EKG abnormalities are chron ic in nature and not due to any recent acute coronary syndromes. 8. Check a TSH to assess the patient's current thyroid state is not contributing to ongoing bradycar yoel and any need for change in Synthroid dose. 9. Follow the patient's mental status closely. Thank you for allowing me to take part in the care of this patient. I will continue to follow him cl osely with you with further recommendations to be made as the patient progresses through his [facility] clinical course. Dictated By: GAEL BOOKER/NTS Conf#: [id number] DID#: [id number] CC: NORMA BANDA MD; RAFAEL DIAZ MD;*End*
[2018-04-07] MEDS ORDERED: CALC667C PO (17:39)
[2018-04-07] MEDS ORDERED: LEVO25TA6 PO (17:39)
[2018-04-07] MEDS ORDERED: LISI10TA2 PO (17:39)
[2018-04-07] MEDS ORDERED: TEMA15CA PO (17:39)
[2018-04-07] MEDS ORDERED: ATOR40TA68 PO (17:39)
[2018-04-07] MEDS ORDERED: QUET25TA33 PO (17:39)
[2018-04-07] MEDS ORDERED: RANI150C11 PO (17:39)
[2018-04-07] MEDS ORDERED: DONE5TAB7 PO (17:39)
[2018-04-07] MEDS ORDERED: RIVA15TA PO (17:39)
[2018-04-07] MEDS ORDERED: CLOP75TA27 PO (17:39)
[2018-04-07] MEDS ORDERED: ALLO100T PO (17:39)
[2018-04-07] MEDS ORDERED: ESCI10TA48 PO (17:39)
[2018-04-07] MEDS ORDERED: METO-336 PO (17:39)
[2018-04-07] MEDS: TAMSULOSIN (SR) 0.4 MG CAP PO SCH (21:05)
[2018-04-08] VITALS (28 sets, daily range): BP systolic 139–174; BP diastolic 71–95; PULSE 55–78; RESP 17–20
[2018-04-08] MEDS: LEVOTHYROXINE 100 MCG TAB PO SCH (06:49)
[2018-04-08] MEDS: SEVELAMER CARBONATE 0.8 GM PKT PO SCH ×3 (07:55→17:41)
[2018-04-08] MEDS: FUROSEMIDE 20 MG INJ IV SCH (08:53)
[2018-04-08] MEDS: AMLODIPINE 10 MG TAB PO SCH (09:00)
[2018-04-08] MEDS: CITRIC ACID/NA CITRATE 30 ML CUP PO SCH ×3 (09:00→20:59)
--- NOTE | 2018-04-08 11:16 | PN ---
Date/Time of Note Date/Time of Note DATE: 04/08/18 TIME: 11:10 Assessment/Plan VTE Prophylaxis Risk score (from Nsg)>0 risk: 4 SCD applied (from Nsg): Yes Pharmacological prophylaxis: other Lines/Catheters IV Catheter Type (from Nrsg): Saline Lock Urinary Cath still in place: No Assessment/Plan Hospital Course S: Patient presently getting dialysis, seen by renal and cardiology teams y esterday. Seen by speech and physical therapy teams as well yesterday. O: VS -see below PE: Constitutional: alert, oriented; No distress Head: normocephalic Eyes: PERRL ENMT: mucosa pink and moist Neck: supple Respiratory: less diminished breath sounds; No labored breathing, No wheezing Cardiovascular: regular rate and rhythm; No murmurs/extra sounds Gastrointestinal: soft, non-tender, bowel sounds Extremities: No edema Neurological: No focal weakness A/P: 67-year-old male who was discharged from [facility] yesterday, the reason he was there is unclear, patient is a poor historian who was sent to the emergency room because of altered mentation. He is currently managed on telemetry as follows: 1. Alteration in mental status: back to baseline at this time - Head CT no acute findings, could be attributed to smoking marijuana but also chest x-ray suggestive of fluid overload versus new diagnosis of CHF. -Monitor for now, continue PT -f/u urine toxicology screen 2. Acute on chronic kidney disease stage V without hyperkalemia -again seen by renal team and getting dialysis now as there is evidence of fluid overload on c hest x-ray -Continue dialysis per renal recommendations, follow-up labs in the morning 3. Fluid overload/newly diagnosed CHF -Monitor, continue recognition from cardiology team including IV Lasix and other cardiac medications 4. Lactic acidosis -see above / improved -Monitor 5. Known hepatitis C with undetectable RNA on serology December 2016 -No present issues monitor for now 6. Positive hepatitis B core antibody suggestive of prior infection -Monitor for now 7. Chronic marijuana user-Due to comorbidities above, patient will likely be better of quitting smoking marijuana -He was counseled about cessation, monitor 8. Hypertension: Patient with some improvement, still in the high normal range -Continue current home meds, titrate as indicated 9. History of hypothyroidism: -Continue home Synthroid dosing -Follow-up TSH 10. History of subdural hemorrhage December 2016 and prior to that patient had craniotomy likely for similar. -Head CT results reviewed, monitor for now 11. S/p Pacemaker placement -Monitor, follow-up cardiology recommendations Dispo: -Try to follow-up records from [place] and get cardiology and nephrology input - plan to discharge back to assisted living likely in the next 24 hours if shortness of breath and fluid overload symptoms have improved - patient apparently is a dialysis patient at [facility] nephrology to dialyse. Result Diagram: 04/08/18 0557 04/08/18 0557 Results 24hrs Laboratory Tests Test 04/07/18 13:23 04/07/18 18:30 04/08/18 05:55 04/08/18 05:57 Magnesium Level 2.5 2.4 Creatine Kinase 30 26 26 Creatine Kinase Index 6.4 7.2 Creatinine Kinase MB 1.92 1.86 (Mass) Troponin I 0.090 0.094 Uric Acid 8.4 H Hepatitis B Surface NEGATIVE Antigen White Blood Count 4.4 L Red Blood Count 2.92 L Hemoglobin 9.9 L Hematocrit 29.4 L Mean Corpuscular Volume 100.7 Mean Corpuscular 33.9 H Hemoglobin Mean Corpuscular 33.7 Hemoglobin Concent Red Cell Distribution 14.0 Width Platelet Count 142 Mean Platelet Volume 10.5 H Immature Granulocytes % 0.500 H Neutrophils % 57.9 Lymphocytes % 26.2 Monocytes % 8.3 Eosinophils % 6.2 Basophils % 0.9 Nucleated Red Blood 0.0 Cells % Immature Granulocytes # 0.020 Neutrophils # 2.5 Lymphocytes # 1.1 Monocytes # 0.4 Eosinophils # 0.3 Basophils # 0.0 Nucleated Red Blood 0.0 Cells # Sodium Level 141 Potassium Level 3.7 Chloride Level 105 Carbon Dioxide Level 23 Anion Gap 13 Blood Urea Nitrogen 60 H Creatinine 7.11 H Est Glomerular Filtrat 8 L Rate mL/min Glucose Level 118 Hemoglobin A1c 4.7 Lactic Acid Level 0.8 Calcium Level 9.0 Total Bilirubin 0.2 Direct Bilirubin 0.00 Indirect Bilirubin 0.2 Aspartate Amino 16 Transf (AST/SGOT) Alanine 19 Aminotransferase (ALT/SG PT) Alkaline Phosphatase 84 Total Protein 5.9 L Albumin 3.4 Globulin 2.50 Albumin/Globulin Ratio 1.36 Triglycerides Level 94 Cholesterol Level 93 L LDL Cholesterol, 44 Calculated HDL Cholesterol 30 Cholesterol/HDL Ratio 3.1 Thyroid Stimulating 6.260 H Hormone (TSH) Exam/Review of Systems Exam Vitals Vital Signs Date Temp Pulse Resp B/P (MAP) Pulse Ox O2 O2 Flow FiO2 Time Delivery Rate 04/08/18 97.8 78 18 145/72 97 11:07 (96) 04/08/18 Room Air 10:12 04/07/18 2.0 20:00 Intake and Output 04/07/18 04/07/18 04/08/18 1515:00 23:00 07:00 IntakeIntake Total 400 ml 200 ml BalanceBalance 400 ml 200 ml Results Results 24hrs Laboratory Tests Test 04/07/18 13:23 04/07/18 18:30 04/08/18 05:55 04/08/18 05:57 Magnesium Level 2.5 2.4 Creatine Kinase 30 26 26 Creatine Kinase Index 6.4 7.2 Creatinine Kinase MB 1.92 1.86 (Mass) Troponin I 0.090 0.094 Uric Acid 8.4 H Hepatitis B Surface NEGATIVE Antigen White Blood Count 4.4 L Red Blood Count 2.92 L Hemoglobin 9.9 L Hematocrit 29.4 L Mean Corpuscular Volume 100.7 Mean Corpuscular 33.9 H Hemoglobin Mean Corpuscular 33.7 Hemoglobin Concent Red Cell Distribution 14.0 Width Platelet Count 142 Mean Platelet Volume 10.5 H Immature Granulocytes % 0.500 H Neutrophils % 57.9 Lymphocytes % 26.2 Monocytes % 8.3 Eosinophils % 6.2 Basophils % 0.9 Nucleated Red Blood 0.0 Cells % Immature Granulocytes # 0.020 Neutrophils # 2.5 Lymphocytes # 1.1 Monocytes # 0.4 Eosinophils # 0.3 Basophils # 0.0 Nucleated Red Blood 0.0 Cells # Sodium Level 141 Potassium Level 3.7 Chloride Level 105 Carbon Dioxide Level 23 Anion Gap 13 Blood Urea Nitrogen 60 H Creatinine 7.11 H Est Glomerular Filtrat 8 L Rate mL/min Glucose Level 118 Hemoglobin A1c 4.7 Lactic Acid Level 0.8 Calcium Level 9.0 Total Bilirubin 0.2 Direct Bilirubin 0.00 Indirect Bilirubin 0.2 Aspartate Amino 16 Transf (AST/SGOT) Alanine 19 Aminotransferase (ALT/SG PT) Alkaline Phosphatase 84 Total Protein 5.9 L Albumin 3.4 Globulin 2.50 Albumin/Globulin Ratio 1.36 Triglycerides Level 94 Cholesterol Level 93 L LDL Cholesterol, 44 Calculated HDL Cholesterol 30 Cholesterol/HDL Ratio 3.1 Thyroid Stimulating 6.260 H Hormone (TSH) Medications Medication Current Medications IV Flush (NS 3 ml) 3 ml PER PROTOCOL IV ; Start 04/07/18 at 07:00 Ondansetron HCl (Zofran Inj) 4 mg Q6H PRN IV NAUSEA/VOMITING; Start 04/07/18 at 07:00 Acetaminophen (Tylenol Tab) 650 mg Q6H PRN PO .PAIN 1-3 OR TEMP; Start 04/07/18 at 07:00 Albuterol/ Ipratropium (Duoneb) 3 ml Q2H RESP THERAPY PRN HHN SHORTNESS OF BREATH; Start 04/07/18 at 07:00 Amlodipine Besylate (Norvasc) 10 mg DAILY PO Last administered on 04/07/18at 08:30; Admin Dose 10 MG; Start 04/07/18 at 09:00 Levothyroxine Sodium (Synthroid) 100 mcg BEFORE BREAKFAST PO Last administered on 04/08/18at 06:49; Admin Dose 100 MCG; Start 04/07/18 at 07:00 Tamsulosin HCl (Flomax) 0.4 mg HS PO Last administered on 04/07/18at 21:05; Admin Dose 0.4 MG; Start 04/07/18 at 21:00 Furosemide (Lasix) 20 mg DAILY IV Last administered on 04/08/18at 08:53; Admin Dose 20 MG; Start 04/07/18 at 09:00 Sevelamer Carbonate (Renvela) 0.8 gm WITH MEALS PO Last administered on 04/07/18at 17:47; Admin Dose 0.8 GM; Start 04/07/18 at 11:50 Citric Acid/ Sodium Citrate (Bicitra) 30 ml TID PO Last administered on 04/07/18at 21:05; Admin Dose 30 ML; Start 04/07/18 at 13:00 Hydralazine HCl (Apresoline) 25 mg Q8 PO Last administered on 04/08/18at 05:07; Admin Dose 25 MG; Start 04/07/18 at 14:00 Clonidine (Catapres) 0.1 mg Q6H PRN PO SBP>170; Start 04/07/18 at 13:30 Albumin Human 50 ml @ 100 mls/hr WITH DIALYSIS PRN IV SBP < 90 DURING DI ALYSIS; Start 04/07/18 at 14:30 Sodium Chloride (NS) -To prime the dialy... DIRECTED FOR HD PRN IV HD; Start 04/07/18 at 14:30 JESSE YARBROUGH Apr 08, 2018 11:16
--- NOTE | 2018-04-08 12:55 | CONS ---
Assessment/Plan Assessment/Plan Assessment/Plan (Daily) 1. acute fluid overload 2. ESRD on HD MWF at [facility] 3. H/o HTN 4. H/o HL 5. Anemia of ESRD 6. Sinus bradycardia 7. hypertension, subdural hemorrhage, status post craniotomy in 2017, prior tobacco intake Plan: s/p HD today 3 L removed, will plan for next HD on Tuesday, pt regular schedule for HD is MWF - he follows at [facility] Cad[facility] has been following on patient will follow up Consultation Date/Type/Reason Admit Date/Time Apr 07, 2018 at 05:31 Initial Consult Date 04/07/18 Type of Consult NEPHROLOGY Requesting Provider: NORMA BANDA Date/Time of Note DATE: 04/08/18 TIME: 12:55 Exam/Review of Systems Exam Vitals Vital Signs Date Temp Pulse Resp B/P (MAP) Pulse Ox O2 O2 Flow FiO2 Time Delivery Rate 04/08/18 66 155/71 97 Room Air 12:47 (99) 04/08/18 97.8 18 11:07 04/07/18 2.0 20:00 Intake and Output 04/07/18 04/07/18 04/08/18 1515:00 23:00 07:00 IntakeIntake Total 400 ml 200 ml BalanceBalance 400 ml 200 ml Results Result Diagram: 04/08/18 0557 04/08/18 0557 Results 24hrs Laboratory Tests Test 04/07/18 13:23 04/07/18 18:30 04/08/18 05:55 04/08/18 05:57 Magnesium Level 2.5 2.4 Creatine Kinase 30 26 26 Creatine Kinase Index 6.4 7.2 Creatinine Kinase MB 1.92 1.86 (Mass) Troponin I 0.090 0.094 Uric Acid 8.4 H Hepatitis B Surface NEGATIVE Antigen White Blood Count 4.4 L Red Blood Count 2.92 L Hemoglobin 9.9 L Hematocrit 29.4 L Mean Corpuscular Volume 100.7 Mean Corpuscular 33.9 H Hemoglobin Mean Corpuscular 33.7 Hemoglobin Concent Red Cell Distribution 14.0 Width Platelet Count 142 Mean Platelet Volume 10.5 H Immature Granulocytes % 0.500 H Neutrophils % 57.9 Lymphocytes % 26.2 Monocytes % 8.3 Eosinophils % 6.2 Basophils % 0.9 Nucleated Red Blood 0.0 Cells % Immature Granulocytes # 0.020 Neutrophils # 2.5 Lymphocytes # 1.1 Monocytes # 0.4 Eosinophils # 0.3 Basophils # 0.0 Nucleated Red Blood 0.0 Cells # Sodium Level 141 Potassium Level 3.7 Chloride Level 105 Carbon Dioxide Level 23 Anion Gap 13 Blood Urea Nitrogen 60 H Creatinine 7.11 H Est Glomerular Filtrat 8 L Rate mL/min Glucose Level 118 Hemoglobin A1c 4.7 Lactic Acid Level 0.8 Calcium Level 9.0 Total Bilirubin 0.2 Direct Bilirubin 0.00 Indirect Bilirubin 0.2 Aspartate Amino 16 Transf (AST/SGOT) Alanine 19 Aminotransferase (ALT/SG PT) Alkaline Phosphatase 84 Total Protein 5.9 L Albumin 3.4 Globulin 2.50 Albumin/Globulin Ratio 1.36 Triglycerides Level 94 Cholesterol Level 93 L LDL Cholesterol, 44 Calculated HDL Cholesterol 30 Cholesterol/HDL Ratio 3.1 Thyroid Stimulating 6.260 H Hormone (TSH) Medications Medication Current Medications IV Flush (NS 3 ml) 3 ml PER PROTOCOL IV ; Start 04/07/18 at 07:00 Ondansetron HCl (Zofran Inj) 4 mg Q6H PRN IV NAUSEA/VOMITING; Start 04/07/18 at 07:00 Acetaminophen (Tylenol Tab) 650 mg Q6H PRN PO .PAIN 1-3 OR TEMP; Start 04/07/18 at 07:00 Albuterol/ Ipratropium (Duoneb) 3 ml Q2H RESP THERAPY PRN HHN SHORTNESS OF BREATH; Start 04/07/18 at 07:00 Amlodipine Besylate (Norvasc) 10 mg DAILY PO Last administered on 04/07/18at 08:30; Admin Dose 10 MG; Start 04/07/18 at 09:00 Levothyroxine Sodium (Synthroid) 100 mcg BEFORE BREAKFAST PO Last administered on 04/08/18at 06:49; Admin Dose 100 MCG; Start 04/07/18 at 07:00 Tamsulosin HCl (Flomax) 0.4 mg HS PO Last administered on 04/07/18at 21:05; Admin Dose 0.4 MG; Start 04/07/18 at 21:00 Furosemide (Lasix) 20 mg DAILY IV Last administered on 04/08/18at 08:53; Admin Dose 20 MG; Start 04/07/18 at 09:00 Sevelamer Carbonate (Renvela) 0.8 gm WITH MEALS PO Last administered on 04/07/18at 17:47; Admin Dose 0.8 GM; Start 04/07/18 at 11:50 Citric Acid/ Sodium Citrate (Bicitra) 30 ml TID PO Last administered on 04/07/18at 21:05; Admin Dose 30 ML; Start 04/07/18 at 13:00 Hydralazine HCl (Apresoline) 25 mg Q8 PO Last administered on 04/08/18at 05:07; Admin Dose 25 MG; Start 04/07/18 at 14:00 Clonidine (Catapres) 0.1 mg Q6H PRN PO SBP>170; Start 04/07/18 at 13:30 Albumin Human 50 ml @ 100 mls/hr WITH DIALYSIS PRN IV SBP < 90 DURING DIALYSIS; Start 04/07/18 at 14:30 Sodium Chloride (NS) -To prime the dialy... DIRECTED FOR HD PRN IV HD; Start 04/07/18 at 14:30 AMANDA HUERTAS MD Apr 08, 2018 12:55
--- NOTE | 2018-04-08 14:31 | CONS ---
Consult Date/Type/Reason Admit Date/Time Apr 07, 2018 at 05:31 Initial Consult Date 04/07/18 Requesting Provider: NORMA BANDA Date/Time of Note DATE: 04/08/18 TIME: 14:29 Subjective NO acute events - better fluid status -pacer in place. ROS: No fever, no chills, no nausea, no vomiting, no diarrhea/constipation No recent weight changes No chest pain, no PND, no orthopnea - improved SOB No dizziness, blurred vision No thirst, no heat or cold intolerance Objective Vitals Vital Signs Date Temp Pulse Resp B/P (MAP) Pulse Ox O2 O2 Flow FiO2 Time Delivery Rate 04/08/18 66 155/71 97 Room Air 12:47 (99) 04/08/18 97.8 18 11:07 04/07/18 2.0 20:00 Intake and Output 04/07/18 04/07/18 04/08/18 1515:00 23:00 07:00 IntakeIntake Total 400 ml 200 ml BalanceBalance 400 ml 200 ml Exam General: WN/WD/NAD, AOx 2-3 HEENT: Unicetric/atraumatic/EOMI ( follow commands) NECK: JVD elevated, no thyromegaly Lymph: no lymphadenopathy HEART: regular with no S3, II/ systolic murmur at apex, PMI L, pacer LUNGS: Coarse sounds ABD: soft, NT, ND, +BS : Intact Neuro: non focal SKIN: chronic changes EXT: + edema Results/Medications Result Diagram: 04/08/18 0557 04/08/18 0557 Results 24 hrs Laboratory Tests Test 04/07/18 18:30 04/08/18 05:55 04/08/18 05:57 Creatine Kinase 26 26 Creatine Kinase Index 7.2 Creatinine Kinase MB (Mass) 1.86 Troponin I 0.094 Uric Acid 8.4 H Hepatitis B Surface Antigen NEGATIVE White Blood Count 4.4 L Red Blood Count 2.92 L Hemoglobin 9.9 L Hematocrit 29.4 L Mean Corpuscular Volume 100.7 Mean Corpuscular Hemoglobin 33.9 H Mean Corpuscular Hemoglobin Concent 33.7 Red Cell Distribution Width 14.0 Platelet Count 142 Mean Platelet Volume 10.5 H Immature Granulocytes % 0.500 H Neutrophils % 57.9 Lymphocytes % 26.2 Monocytes % 8.3 Eosinophils % 6.2 Basophils % 0.9 Nucleated Red Blood Cells % 0.0 Immature Granulocytes # 0.020 Neutrophils # 2.5 Lymphocytes # 1.1 Monocytes # 0.4 Eosinophils # 0.3 Basophils # 0.0 Nucleated Red Blood Cells # 0.0 Sodium Level 141 Potassium Level 3.7 Chloride Level 105 Carbon Dioxide Level 23 Anion Gap 13 Blood Urea Nitrogen 60 H Creatinine 7.11 H Est Glomerular Filtrat Rate mL/min 8 L Glucose Level 118 Hemoglobin A1c 4.7 Lactic Acid Level 0.8 Calcium Level 9.0 Magnesium Level 2.4 Total Bilirubin 0.2 Direct Bilirubin 0.00 Indirect Bilirubin 0.2 Aspartate Amino Transf (AST/SGOT) 16 Alanine Aminotransferase (ALT/SGPT) 19 Alkaline Phosphatase 84 Total Protein 5.9 L Albumin 3.4 Globulin 2.50 Albumin/Globulin Ratio 1.36 Triglycerides Level 94 Cholesterol Level 93 L LDL Cholesterol, Calculated 44 HDL Cholesterol 30 Cholesterol/HDL Ratio 3.1 Thyroid Stimulating Hormone (TSH) 6.260 H Home Meds Reported Medications Quetiapine Fumarate* (Quetiapine Fumarate*) 25 Mg Tablet, 25 MG PO QHS, TAB 04/07/18 Escitalopram Oxalate* (Escitalopram Oxalate*) 10 Mg Tablet, 10 MG PO DAILY, #30 TAB 04/07/18 Donepezil* (Donepezil*) 5 Mg Tablet, 5 MG PO QHS, #30 TAB 04/07/18 Rivaroxaban* (Xarelto*) 15 Mg Tablet, 15 MG PO DAILY, TAB 04/07/18 Lisinopril* (Lisinopril*) 10 Mg Tablet, 10 MG PO BID, #30 TAB 04/07/18 Metoprolol Succinate* (Toprol XL*) 100 Mg Tab.sr.24h, 100 MG PO DAILY, #30 TAB 04/07/18 Ranitidine Hcl (Ranitidine Hcl) 150 Mg Capsule, 150 MG PO DAILY, #60 CAP 04/07/18 Atorvastatin* (Atorvastatin*) 40 Mg Tablet, 40 MG PO QHS, #30 TAB 04/07/18 Calcium Acetate* (Calcium Acetate*) 667 Mg Capsule, 667 MG PO WITH MEALS, #30 CAP 04/07/18 Levothyroxine Sodium* (Levothyroxine Sodium*) 25 Mcg Tablet, 25 MCG PO BEFORE BREAKFAST, #30 TAB 04/07/18 Allopurinol* (Allopurinol*) 100 Mg Tablet, 100 MG PO DAILY, TAB 04/07/18 Clopidogrel Bisulfate (Clopidogrel) 75 Mg Tablet, 75 MG PO DAILY, #30 TAB 04/07/18 Temazepam* (Temazepam*) 15 Mg Capsule, 15 MG PO HS PRN for INSOMNIA, CAP 04/07/18 Hydralazine Hcl* (Hydralazine Hcl*) 10 Mg Tablet, 10 MG PO Q6H, #60 TAB 12/24/16 Amlodipine Besylate* (Norvasc*) 10 Mg Tablet, 10 MG PO DAILY, TAB 12/24/16 Levothyroxine Sodium* (Synthroid*) 100 Mcg Tablet, 100 MCG PO BEFORE BREAKFAST, #30 TAB 12/24/16 Tamsulosin Hcl* (Tamsulosin Hcl*) 0.4 Mg Cap.er.24h, 0.4 MG PO HS, CAP 12/24/16 Calcitriol* (Calcitriol*) 0.5 Mcg Capsule, 0.5 MCG PO DAILY, CAP 12/24/16 Sevelamer Carbonate* (Renvela*) 800 Mg Tablet, 0.8 GM PO WITH MEALS, TAB 12/24/16 Medications Current Medications IV Flush (NS 3 ml) 3 ml PER PROTOCOL IV ; Start 04/07/18 at 07:00 Ondansetron HCl (Zofran Inj) 4 mg Q6H PRN IV NAUSEA/VOMITING; Start 04/07/18 at 07:00 Acetaminophen (Tylenol Tab) 650 mg Q6H PRN PO .PAIN 1-3 OR TEMP; Start 04/07/18 at 07:00 Albuterol/ Ipratropium (Duoneb) 3 ml Q2H RESP THERAPY PRN HHN SHORTNESS OF BREATH; Start 04/07/18 at 07:00 Amlodipine Besylate (Norvasc) 10 mg DAILY PO Last administered on 04/07/18at 08 :30; Admin Dose 10 MG; Start 04/07/18 at 09:00 Levothyroxine Sodium (Synthroid) 100 mcg BEFORE BREAKFAST PO Last administered on 04/08/18at 06:49; Admin Dose 100 MCG; Start 04/07/18 at 07:00 Tamsulosin HCl (Flomax) 0.4 mg HS PO Last administered on 04/07/18at 21:05; Admin Dose 0.4 MG; Start 04/07/18 at 21:00 Furosemide (Lasix) 20 mg DAILY IV Last administered on 04/08/18at 08:53; Admin Dose 20 MG; Start 04/07/18 at 09:00 Sevelamer Carbonate (Renvela) 0.8 gm WITH MEALS PO Last administered on 04/08/18 12:55; Admin Dose 0.8 GM; Start 04/07/18 at 11:50 Citric Acid/ Sodium Citrate (Bicitra) 30 ml TID PO Last administered on 04/08/18 12:55; Admin Dose 30 ML; Start 04/07/18 at 13:00 Hydralazine HCl (Apresoline) 25 mg Q8 PO Last administered on 04/08/18 13:12; Admin Dose 25 MG; Start 04/07/18 at 14:00 Clonidine (Catapres) 0.1 mg Q6H PRN PO SBP>170; Start 04/07/18 at 13:30 Albumin Human 50 ml @ 100 mls/hr WITH DIALYSIS PRN IV SBP < 90 DURING DIALYSIS; Start 04/07/18 at 14:30 Sodium Chloride (NS) -To prime the dialy... DIRECTED FOR HD PRN IV HD; Start 04/07/18 at 14:30 Imaging 1. Congestive heart failure in the setting of acute on chronic renal failure, question of volume overload, question systolic versus diastolic, appears to be likely acute on chronic - con't gentle diuresis. 2. Hypertension - BP better now. 3. Abnormal electrocardiogram with anteroseptal Q's, assess for acute coronary syndrome. R/O mi - no intervention planned. 4. History of coronary artery disease. 5. Altered mental state - satble. 6. Bradycardia with elevated blood pressures. 7. Dyslipidemia. 8. Psychiatric disorder. 9. Hypothyroidism 10. History of chronic obstructive pulmonary disease - con't resop Rx. 11. Former tobacco intake. 12. History of paroxysmal atrial fibrillation by chart biopsy. 13. Acute on chronic renal failure- CR high. ROSITA STAPLES MD Apr 08, 2018 14:31
[2018-04-08] MEDS: TAMSULOSIN (SR) 0.4 MG CAP PO SCH (20:59)
[2018-04-09] VITALS (14 sets, daily range): BP systolic 135–156; BP diastolic 70–88; PULSE 58–150; RESP 14–18
[2018-04-09] MEDS ORDERED: HYDROCODONE/APAP (5/325) TAB PO ONE
[2018-04-09] MEDS ORDERED: IBUPROFEN 400 MG TAB PO PRN
[2018-04-09] MEDS ORDERED: ZOLPIDEM 5 MG TAB PO ONE (00:36)
[2018-04-09] MEDS: LEVOTHYROXINE 100 MCG TAB PO SCH (06:20)
[2018-04-09] MEDS: SEVELAMER CARBONATE 0.8 GM PKT PO SCH ×3 (08:02→17:52)
[2018-04-09] MEDS: CITRIC ACID/NA CITRATE 30 ML CUP PO SCH ×3 (08:02→20:59)
[2018-04-09] MEDS: AMLODIPINE 10 MG TAB PO SCH (08:03)
[2018-04-09] MEDS: FUROSEMIDE 20 MG INJ IV SCH (08:03)
--- NOTE | 2018-04-09 10:03 | CONS ---
Assessment/Plan Assessment/Plan Assessment/Plan (Daily) 1. acute fluid overload 2. ESRD on HD MWF at [facility] HD center 3. H/o HTN 4. H/o HL 5. Anemia of ESRD 6. Sinus bradycardia 7. hypertension, subdural hemorrhage, status post craniotomy in 2017, prior tobacco intake Plan: HD ordered for tomorrow- pt regular schedule for HD is MWF -he follows at [facility] has been following on patient will follow up Consultation Date/Type/Reason Admit Date/Time Apr 07, 2018 at 05:31 Initial Consult Date 04/07/18 Type of Consult NEPHROLOGY Requesting Provider: NORMA BANDA Date/Time of Note DATE: 04/09/18 TIME: 10:03 Exam/Review of Systems Exam Vitals Vital Signs Date Temp Pulse Resp B/P (MAP) Pulse Ox O2 O2 Flow FiO2 Time Delivery Rate 04/09/18 63 08:00 04/09/18 97.8 14 147/70 94 Room Air 04:08 (95) 04/08/18 2.0 23:50 Intake and Output 04/08/18 04/08/18 04/09/18 1515:00 23:00 07:00 IntakeIntake Total 600 ml 750 ml OutputOutput Total 3400 ml 300 ml BalanceBalance -3400 ml 600 ml 450 ml Exam Constitutional: alert, oriented Respiratory: crackles/rales, diminished breath sounds Cardiovascular: regular rate and rhythm, nl pulses Gastrointestinal: soft, non-tender Musculoskeletal: nl extremities to inspection, swelling Extremities: normal pulses Neurological: CHARITY FUNDRAISER II-XII intact, nl mental status, nl speech, nl strength Results Result Diagram: 04/09/18 0550 04/09/18 0550 Results 24hrs Laboratory Tests Test 04/09/18 05:50 White Blood Count 4.1 L Red Blood Count 3.36 L Hemoglobin 11.3 L Hematocrit 33.8 L Mean Corpuscular Volume 100.6 Mean Corpuscular Hemoglobin 33.6 H Mean Corpuscular Hemoglobin Concent 33.4 Red Cell Distribution Width 13.9 Platelet Count 164 Mean Platelet Volume 10.0 Immature Granulocytes % 0.200 Neutrophils % 48.5 Lymphocytes % 32.0 Monocytes % 9.8 Eosinophils % 8.5 H Basophils % 1.0 Nucleated Red Blood Cells % 0.0 Immature Granulocytes # 0.010 Neutrophils # 2.0 Lymphocytes # 1.3 Monocytes # 0.4 Eosinophils # 0.4 Basophils # 0.0 Nucleated Red Blood Cells # 0.0 Sodium Level 139 Potassium Level 3.6 Chloride Level 102 Carbon Dioxide Level 26 Anion Gap 11 Blood Urea Nitrogen 35 #H Creatinine 4.58 #H Est Glomerular Filtrat Rate mL/min 13 L Glucose Level 78 # Calcium Level 9.4 Phosphorus Level 3.9 Magnesium Level 2.2 Medications Medication Current Medications IV Flush (NS 3 ml) 3 ml PER PROTOCOL IV ; Start 04/07/18 at 07:00 Ondansetron HCl (Zofran Inj) 4 mg Q6H PRN IV NAUSEA/VOMITING; Start 04/07/18 at 07:00 Acetaminophen (Tylenol Tab) 650 mg Q6H PRN PO .PAIN 1-3 OR TEMP Last administered on 04/08/18 20:59; Admin Dose 650 MG; Start 04/07/18 at 07:00 Albuterol/ Ipratropium (Duoneb) 3 ml Q2H RESP THERAPY PRN HHN SHORTNESS OF BREATH; Start 04/07/18 at 07:00 Amlodipine Besylate (Norvasc) 10 mg DAILY PO Last administered on 04/09/18 08:03; Admin Dose 10 MG; Start 04/07/18 at 09:00 Levothyroxine Sodium (Synthroid) 100 mcg BEFORE BREAKFAST PO Last administered on 04/09/18 06:20; Admin Dose 100 MCG; Start 04/07/18 at 07:00 Tamsulosin HCl (Flomax) 0.4 mg HS PO Last administered on 04/08/18 20:59; Admin Dose 0.4 MG; Start 04/07/18 at 21:00 Furosemide (Lasix) 20 mg DAILY IV Last administered on 04/09/18 08:03; Admin Dose 20 MG; Start 04/07/18 at 09:00 Sevelamer Carbonate (Renvela) 0.8 gm WITH MEALS PO Last administered on 04/09/18 08:02; Admin Dose 0.8 GM; Start 04/07/18 at 11:50 Citric Acid/ Sodium Citrate (Bicitra) 30 ml TID PO Last administered on 04/09/18 08:02; Admin Dose 30 ML; Start 04/07/18 at 13:00 Hydralazine HCl (Apresoline) 25 mg Q8 PO Last administered on 04/09/18at 06:20; Admin Dose 25 MG; Start 04/07/18 at 14:00 Clonidine (Catapres) 0.1 mg Q6H PRN PO SBP>170; Start 04/07/18 at 13:30 Albumin Human 50 ml @ 100 mls/hr WITH DIALYSIS PRN IV SBP < 90 DURING DIALYSIS; Start 04/07/18 at 14:30 Sodium Chloride (NS) -To prime the dialy... DIRECTED FOR HD PRN IV HD; Start 04/07/18 at 14:30 Ibuprofen (Motrin) 400 mg Q6H PRN PO PAIN; Start 04/09/18 at 00:00 AMANDA HUERTAS MD Apr 09, 2018 10:03
--- NOTE | 2018-04-09 11:18 | PN ---
Date/Time of Note Date/Time of Note DATE: 04/09/18 TIME: 11:15 Assessment/Plan VTE Prophylaxis Risk score (from Nsg)>0 risk: 3 SCD applied (from Nsg): Yes Pharmacological prophylaxis: other Lines/Catheters IV Catheter Type (from Nrsg): Saline Lock Urinary Cath still in place: No Assessment/Plan Hospital Course S: Patient had dialysis yesterday, seen by renal cardiology team yesterday. No acute events overnight, tolerating diet. O: VS -see below PE: Constitutional: alert, oriented; No distress Head: normocephalic Eyes: PERRL ENMT: mucosa pink and moist Neck: supple Respiratory: less diminished breath sounds; No labored breathing, No wheezing Cardiovascular: regular rate and rhythm; No murmurs/extra sounds Gastrointestinal: soft, non-tender, bowel sounds Extremities: No edema Neurological: No focal weakness A/P: 67-year-old male who was discharged from [facility] yesterday, the reason he was there is unclear, patient is a poor historian who was sent to the emergency room because of altered mentation. He is currently managed on telemetry as follows: 1. Alteration in mental status: back to baseline at this time - Head CT no acute findings, symptoms likely secondary to smoking marijuana and also chest x-ray suggestive of fluid overload versus new diagnosis of CHF. -Monitor for now, continue PT, gentle diuresis -f/u urine toxicology screen 2. Acute on chronic kidney disease stage V without hyperkalemia -again seen by renal team and again getting dialysis as there is evidence of fluid overload on chest x-ray -Continue dialysis per renal recommendations, next session tomorrow, follow- up labs in the morning 3. Fluid overload/newly diagnosed CHF -Monitor, continue to follow from cardiology team including gentle IV Lasix and other cardiac medications 4. Lactic acidosis -see above / improved -Monitor 5. Known hepatitis C with undetectable RNA on serology December 2016 -No present issues monitor for now 6. Positive hepatitis B core antibody suggestive of prior infection -Monitor for now 7. Chronic marijuana user-Due to comorbidities above, patient will likely be better of quitting smoking marijuana -He was counseled about cessation, monitor 8. Hypertension: Patient with some improvement, still in the high normal range -Continue current home meds, titrate as indicated 9. History of hypothyroidism: -Continue home Synthroid dosing -Follow-up TSH 10. History of subdural hemorrhage December 2016 and prior to that patient had craniotomy likely for similar. -Head CT results reviewed, monitor for now 11. S/p Pacemaker placement -Monitor, follow-up cardiology recommendations Dispo: - plan to discharge back to assisted living once shortness of breath and fluid overload symptoms have improved - patient apparently is a dialysis patient at [facility], nephrology to dialyse. Result Diagram: 04/09/18 0550 04/09/18 0550 Results 24hrs Laboratory Tests Test 04/09/18 05:50 White Blood Count 4.1 L Red Blood Count 3.36 L Hemoglobin 11.3 L Hematocrit 33.8 L Mean Corpuscular Volume 100.6 Mean Corpuscular Hemoglobin 33.6 H Mean Corpuscular Hemoglobin Concent 33.4 Red Cell Distribution Width 13.9 Platelet Count 164 Mean Platelet Volume 10.0 Immature Granulocytes % 0.200 Neutrophils % 48.5 Lymphocytes % 32.0 Monocytes % 9.8 Eosinophils % 8.5 H Basophils % 1.0 Nucleated Red Blood Cells % 0.0 Immature Granulocytes # 0.010 Neutrophils # 2.0 Lymphocytes # 1.3 Monocytes # 0.4 Eosinophils # 0.4 Basophils # 0.0 Nucleated Red Blood Cells # 0.0 Sodium Level 139 Potassium Level 3.6 Chloride Level 102 Carbon Dioxide Level 26 Anion Gap 11 Blood Urea Nitrogen 35 #H Creatinine 4.58 #H Est Glomerular Filtrat Rate mL/min 13 L Glucose Level 78 # Calcium Level 9.4 Phosphorus Level 3.9 Magnesium Level 2.2 Exam/Review of Systems Exam Vitals Vital Signs Date Temp Pulse Resp B/P (MAP) Pulse Ox O2 O2 Flow FiO2 Time Delivery Rate 04/09/18 98.0 78 18 147/75 97 Room Air 11:04 (99) 04/08/18 2.0 23:50 Intake and Output 04/08/18 04/08/18 04/09/18 1515:00 23:00 07:00 IntakeIntake Total 600 ml 750 ml OutputOutput Total 3400 ml 300 ml BalanceBalance -3400 ml 600 ml 450 ml Results Results 24hrs Laboratory Tests Test 04/09/18 05:50 White Blood Count 4.1 L Red Blood Count 3.36 L Hemoglobin 11.3 L Hematocrit 33.8 L Mean Corpuscular Volume 100.6 Mean Corpuscular Hemoglobin 33.6 H Mean Corpuscular Hemoglobin Concent 33.4 Red Cell Distribution Width 13.9 Platelet Count 164 Mean Platelet Volume 10.0 Immature Granulocytes % 0.200 Neutrophils % 48.5 Lymphocytes % 32.0 Monocytes % 9.8 Eosinophils % 8.5 H Basophils % 1.0 Nucleated Red Blood Cells % 0.0 Immature Granulocytes # 0.010 Neutrophils # 2.0 Lymphocytes # 1.3 Monocytes # 0.4 Eosinophils # 0.4 Basophils # 0.0 Nucleated Red Blood Cells # 0.0 Sodium Level 139 Potassium Level 3.6 Chloride Level 102 Carbon Dioxide Level 26 Anion Gap 11 Blood Urea Nitrogen 35 #H Creatinine 4.58 #H Est Glomerular Filtrat Rate mL/min 13 L Glucose Level 78 # Calcium Level 9.4 Phosphorus Level 3.9 Magnesium Level 2.2 Medications Medication Current Medications IV Flush (NS 3 ml) 3 ml PER PROTOCOL IV ; Start 04/07/18 at 07:00 Ondansetron HCl (Zofran Inj) 4 mg Q6H PRN IV NAUSEA/VOMITING; Start 04/07/18 at 07:00 Acetaminophen (Tylenol Tab) 650 mg Q6H PRN PO .PAIN 1-3 OR TEMP Last administered on 04/08/18 20:59; Admin Dose 650 MG; Start 04/07/18 at 07:00 Albuterol/ Ipratropium (Duoneb) 3 ml Q2H RESP THERAPY PRN HHN SHORTNESS OF BREATH; Start 04/07/18 at 07:00 Amlodipine Besylate (Norvasc) 10 mg DAILY PO Last administered on 04/09/18 08:0 3; Admin Dose 10 MG; Start 04/07/18 at 09:00 Levothyroxine Sodium (Synthroid) 100 mcg BEFORE BREAKFAST PO Last administered on 04/09/18 06:20; Admin Dose 100 MCG; Start 04/07/18 at 07:00 Tamsulosin HCl (Flomax) 0.4 mg HS PO Last administered on 04/08/18 20:59; Admin Dose 0.4 MG; Start 04/07/18 at 21:00 Furosemide (Lasix) 20 mg DAILY IV Last administered on 04/09/18 08:03; Admin Dose 20 MG; Start 04/07/18 at 09:00 Sevelamer Carbonate (Renvela) 0.8 gm WITH MEALS PO Last administered on 04/09/18at 08:02; Admin Dose 0.8 GM; Start 04/07/18 at 11:50 Citric Acid/ Sodium Citrate (Bicitra) 30 ml TID PO Last administered on 04/09/18at 08:02; Admin Dose 30 ML; Start 04/07/18 at 13:00 Hydralazine HCl (Apresoline) 25 mg Q8 PO Last administered on 04/09/18at 06:20; Admin Dose 25 MG; Start 04/07/18 at 14:00 Clonidine (Catapres) 0.1 mg Q6H PRN PO SBP>170; Start 04/07/18 at 13:30 Albumin Human 50 ml @ 100 mls/hr WITH DIALYSIS PRN IV SBP < 90 DURING DIALYSIS; Start 04/07/18 at 14:30 Sodium Chloride (NS) -To prime the dialy... DIRECTED FOR HD PRN IV HD; Start 04/07/18 at 14:30 Ibuprofen (Motrin) 400 mg Q6H PRN PO PAIN; Start 04/09/18 at 00:00 JESSE YARBROUGH Apr 09, 2018 11:18
--- NOTE | 2018-04-09 12:36 | CONS ---
Consult Date/Type/Reason Admit Date/Time Apr 07, 2018 at 05:31 Initial Consult Date 04/07/18 Requesting Provider: NORMA BANDA Date/Time of Note DATE: 04/09/18 TIME: 12:34 Subjective NO acute events - pt feels better, no CP- improved fluid status ROS: No fever, no chills, no nausea, no vomiting, no diarrhea/constipation No recent weight changes No chest pain, no PND, no orthopnea - mild SOB No dizziness, blurred vision No thirst, no heat or cold intolerance Objective Vitals Vital Signs Date Temp Pulse Resp B/P (MAP) Pulse Ox O2 O2 Flow FiO2 Time Delivery Rate 04/09/18 98.0 78 18 147/75 97 Room Air 11:04 (99) 04/08/18 2.0 23:50 Intake and Output 04/08/18 04/08/18 04/09/18 1414:59 22:59 06:59 IntakeIntake Total 600 ml 750 ml OutputOutput Total 3400 ml 300 ml BalanceBalance -3400 ml 600 ml 450 ml Exam General: WN/WD/NAD, AOx 3 HEENT: Unicetric/atraumatic/EOMI (follows commands) NECK: JVD elevated, no thyromegaly Lymph: no lymphadenopathy HEART: regular with no S3, II/ systolic murmur at apex, PMI L LUNGS: Coarse sounds ABD: soft, NT, ND, +BS : Intact Neuro: non focal SKIN: chronic changes EXT: trace edema Results/Medications Result Diagram: 04/09/18 0550 04/09/18 0550 Results 24 hrs Laboratory Tests Test 04/09/18 05:50 White Blood Count 4.1 L Red Blood Count 3.36 L Hemoglobin 11.3 L Hematocrit 33.8 L Mean Corpuscular Volume 100.6 Mean Corpuscular Hemoglobin 33.6 H Mean Corpuscular Hemoglobin Concent 33.4 Red Cell Distribution Width 13.9 Platelet Count 164 Mean Platelet Volume 10.0 Immature Granulocytes % 0.200 Neutrophils % 48.5 Lymphocytes % 32.0 Monocytes % 9.8 Eosinophils % 8.5 H Basophils % 1.0 Nucleated Red Blood Cells % 0.0 Immature Granulocytes # 0.010 Neutrophils # 2.0 Lymphocytes # 1.3 Monocytes # 0.4 Eosinophils # 0.4 Basophils # 0.0 Nucleated Red Blood Cells # 0.0 Sodium Level 139 Potassium Level 3.6 Chloride Level 102 Carbon Dioxide Level 26 Anion Gap 11 Blood Urea Nitrogen 35 #H Creatinine 4.58 #H Est Glomerular Filtrat Rate mL/min 13 L Glucose Level 78 # Calcium Level 9.4 Phosphorus Level 3.9 Magnesium Level 2.2 Home Meds Reported Medications Quetiapine Fumarate* (Quetiapine Fumarate*) 25 Mg Tablet, 25 MG PO QHS, TAB 04/07/18 Escitalopram Oxalate* (Escitalopram Oxalate*) 10 Mg Tablet, 10 MG PO DAILY, #30 TAB 04/07/18 Donepezil* (Donepezil*) 5 Mg Tablet, 5 MG PO QHS, #30 TAB 04/07/18 Rivaroxaban* (Xarelto*) 15 Mg Tablet, 15 MG PO DAILY, TAB 04/07/18 Lisinopril* (Lisinopril*) 10 Mg Tablet, 10 MG PO BID, #30 TAB 04/07/18 Metoprolol Succinate* (Toprol XL*) 100 Mg Tab.sr.24h, 100 MG PO DAILY, #30 TAB 04/07/18 Ranitidine Hcl (Ranitidine Hcl) 150 Mg Capsule, 150 MG PO DAILY, #60 CAP 04/07/18 Atorvastatin* (Atorvastatin*) 40 Mg Tablet, 40 MG PO QHS, #30 TAB 04/07/18 Calcium Acetate* (Calcium Acetate*) 667 Mg Capsule, 667 MG PO WITH MEALS, #30 CAP 04/07/18 Levothyroxine Sodium* (Levothyroxine Sodium*) 25 Mcg Tablet, 25 MCG PO BEFORE BREAKFAST, #30 TAB 04/07/18 Allopurinol* (Allopurinol*) 100 Mg Tablet, 100 MG PO DAILY, TAB 04/07/18 Clopidogrel Bisulfate (Clopidogrel) 75 Mg Tablet, 75 MG PO DAILY, #30 TAB 04/07/18 Temazepam* (Temazepam*) 15 Mg Capsule, 15 MG PO HS PRN for INSOMNIA, CAP 04/07/18 Hydralazine Hcl* (Hydralazine Hcl*) 10 Mg Tablet, 10 MG PO Q6H, #60 TAB 12/24/16 Amlodipine Besylate* (Norvasc*) 10 Mg Tablet, 10 MG PO DAILY, TAB 12/24/16 Levothyroxine Sodium* (Synthroid*) 100 Mcg Tablet, 100 MCG PO BEFORE BREAKFAST, #30 TAB 12/24/16 Tamsulosin Hcl* (Tamsulosin Hcl*) 0.4 Mg Cap.er.24h, 0.4 MG PO HS, CAP 12/24/16 Calcitriol* (Calcitriol*) 0.5 Mcg Capsule, 0.5 MCG PO DAILY, CAP 12/24/16 Sevelamer Carbonate* (Renvela*) 800 Mg Tablet, 0.8 GM PO WITH MEALS, TAB 12/24/16 Medications Current Medications IV Flush (NS 3 ml) 3 ml PER PROTOCOL IV ; Start 04/07/18 at 07:00 Ondansetron HCl (Zofran Inj) 4 mg Q6H PRN IV NAUSEA/VOMITING; Start 04/07/18 at 07:00 Acetaminophen (Tylenol Tab) 650 mg Q6H PRN PO .PAIN 1-3 OR TEMP Last admi nistered on 04/08/18 20:59; Admin Dose 650 MG; Start 04/07/18 at 07:00 Albuterol/ Ipratropium (Duoneb) 3 ml Q2H RESP THERAPY PRN HHN SHORTNESS OF BREATH; Start 04/07/18 at 07:00 Amlodipine Besylate (Norvasc) 10 mg DAILY PO Last administered on 04/09/18 08:03; Admin Dose 10 MG; Start 04/07/18 at 09:00 Levothyroxine Sodium (Synthroid) 100 mcg BEFORE BREAKFAST PO Last administered on 04/09/18 06:20; Admin Dose 100 MCG; Start 04/07/18 at 07:00 Tamsulosin HCl (Flomax) 0.4 mg HS PO Last administered on 04/08/18 20:59; Admin Dose 0.4 MG; Start 04/07/18 at 21:00 Furosemide (Lasix) 20 mg DAILY IV Last administered on 04/09/18 08:03; Admin Dose 20 MG; Start 04/07/18 at 09:00 Sevelamer Carbonate (Renvela) 0.8 gm WITH MEALS PO Last administered on 04/09/18 12:28; Admin Dose 0.8 GM; Start 04/07/18 at 11:50 Citric Acid/ Sodium Citrate (Bicitra) 30 ml TID PO Last administered on 04/09/18 08:02; Admin Dose 30 ML; Start 04/07/18 at 13:00 Hydralazine HCl (Apresoline) 25 mg Q8 PO Last administered on 04/09/18at 06:20; Admin Dose 25 MG; Start 04/07/18 at 14:00 Clonidine (Catapres) 0.1 mg Q6H PRN PO SBP>170; Start 04/07/18 at 13:30 Albumin Human 50 ml @ 100 mls/hr WITH DIALYSIS PRN IV SBP < 90 DURING DIALYSIS; Start 04/07/18 at 14:30 Sodium Chloride (NS) -To prime the dialy... DIRECTED FOR HD PRN IV HD; Start 04/07/18 at 14:30 Ibuprofen (Motrin) 400 mg Q6H PRN PO PAIN; Start 04/09/18 at 00:00 Assessment/Plan Hospital Course (Demo Recall) 1. Congestive heart failure in the setting of acute on chronic renal failure, question of volume overload, question systolic versus diastolic, appears to be likely acute on chronic - con't gentle diuresis. Much better now - euvolemic by exam. 2. Hypertension - BP better now. Treated. 3. Abnormal electrocardiogram with anteroseptal Q's, assess for acute coronary syndrome. R/O mi - no intervention planned. 4. History of coronary artery disease - no CP now - will follow. 5. Altered mental state - satble. 6. Bradycardia with elevated blood pressures - rate controlled. 7. Dyslipidemia. 8. Psychiatric disorder. 9. Hypothyroidism 10. History of chronic obstructive pulmonary disease - con't resop Rx. 11. Former tobacco intake. 12. History of paroxysmal atrial fibrillation by chart biopsy - rate controlled now. 13. Acute on chronic renal failure- CR high. ROSITA STAPLES MD Apr 09, 2018 12:36
[2018-04-09] MEDS: TAMSULOSIN (SR) 0.4 MG CAP PO SCH (20:59)
[2018-04-09] MEDS ORDERED: ZOLPIDEM 5 MG TAB PO PRN (23:00)
[2018-04-10] VITALS (22 sets, daily range): BP systolic 102–160; BP diastolic 61–90; PULSE 49–86; RESP 18–19
[2018-04-10] MEDS: LEVOTHYROXINE 100 MCG TAB PO SCH (06:06)
[2018-04-10] MEDS: SEVELAMER CARBONATE 0.8 GM PKT PO SCH ×3 (08:49→17:40)
[2018-04-10] MEDS: CITRIC ACID/NA CITRATE 30 ML CUP PO SCH ×2 (08:50→12:04)
[2018-04-10] MEDS: AMLODIPINE 10 MG TAB PO SCH (08:50)
[2018-04-10] MEDS: FUROSEMIDE 20 MG INJ IV SCH (08:50)
--- NOTE | 2018-04-10 11:09 | PN ---
Date/Time of Note Date/Time of Note DATE: 04/10/18 TIME: 11:09 Assessment/Plan VTE Prophylaxis Risk score (from Ns)>0 risk: 3 SCD applied (from [facility] [place]): No SCD contraindicated: patient refusal Pharmacological prophylaxis: rivaroxaban Lines/Catheters IV Catheter Type (from [facility] Saline Lock Urinary Cath still in place: No Assessment/Plan Hospital Course SUBJECTIVE: Sitting up in chair. No acute distress. OBJECTIVE: Vital signs-see below PHYSICAL EXAM: Constitutional: Well-developed, adequately built, lying in bed comfortably. Psych: nl mood/affect, no complaints Head: atraumatic, normocephalic Eyes: nl conjunctiva, nl sclera ENMT: mucosa pink and moist, nl external ears & nose Neck: non-tender, supple Respiratory: clear to auscultation, normal air movement Cardiovascular: nl pulses, regular rate and rhythm Gastrointestinal: non-tender, soft, bowel sounds active in all 4 quadrants. Musculoskeletal/extremities: nl extremities to inspection, motor strength equal bilaterally, no focal deficit. Normal pulses,no cyanosis, no edema. Neurological: Forgetful...Alert oriented 3,nl speech, nl strength Skin: nl turgor ASSESSMENT/PLAN:67-year-old male w/ESRD (hd),afib,dementia, here w/Altered mental status... 1. Encephalopathy in ESRD/DEMENTIA, likely metabolic/uremic encephalopathy. -Stroke ruled out.. -Resolved. Back to baseline. -Continue to monitor. -Neurology consult for dementia screening... 2. ESRD, hemodialysis MWF -Management per nephrology. -resume phosphate binders 3. Acute on chronic systolic congestive heart failure, status post pacemaker placed -EF 25-30%. -Compensated. -Management per cardiology. -resume oupt mgmnt including DWAIN inhibitors, beta-blockers -UF for fluid removal. 4. Hypertension -Stable. Continue antihypertensives. 5. Hypothyroidism -Continue Synthroid. 6. Paroxysmal atrial fibrillation. -In normal sinus rhythm. -resume oupt atc/bb dose. 7. Anemia of ESRD -Stable H&H. Epogen per nephrology team. 8. Coronary artery disease -no acute issues.. -resume oupt meds except plavix a spt on xeralto.. 8. Marijuana use -He was counseled about cessation 9. Dementia/ Depression/sleep disorders. -Resume home medications DVT prophylaxis: Resume Xarelto PUD prophylaxis:H2B CODE STATUS: Full code Diet: Renal. Disposition: Continue current management. DC planning in next 24 hours. Patient was seen in collaboration with Result Diagram: 04/09/18 0550 04/09/18 0550 Exam/Review of Systems Exam Vitals Vital Signs Date Temp Pulse Resp B/P (MAP) Pulse Ox O2 O2 Flow FiO2 Time Delivery Rate 04/10/18 Nasal 2.0 09:57 Cannula 04/10/18 69 08:18 04/10/18 97.7 18 140/72 97 07:16 (94) Intake and Output 04/09/18 04/09/18 04/10/18 1515:00 23:00 07:00 IntakeIntake Total 800 ml 500 ml OutputOutput Total 150 ml BalanceBalance 800 ml 350 ml Medications Medication Current Medications IV Flush (NS 3 ml) 3 ml PER PROTOCOL IV ; Start 04/07/18 at 07:00 Ondansetron HCl (Zofran Inj) 4 mg Q6H PRN IV NAUSEA/VOMITING; Start 04/07/18 at 07:00 Acetaminophen (Tylenol Tab) 650 mg Q6H PRN PO .PAIN 1-3 OR TEMP Last administered on 04/08/18 20:59; Admin Dose 650 MG; Start 04/07/18 at 07:00 Albuterol/ Ipratropium (Duoneb) 3 ml Q2H RESP THERAPY PRN HHN SHORTNESS OF BREATH; Start 04/07/18 at 07:00 Amlodipine Besylate (Norvasc) 10 mg DAILY PO Last administered on 04/10/18 08:50; Admin Dose 10 MG; Start 04/07/18 at 09:00 Levothyroxine Sodium (Synthroid) 100 mcg BEFORE BREAKFAST PO Last administered on 04/10/18 06:06; Admin Dose 100 MCG; Start 04/07/18 at 07:00 Tamsulosin HCl (Flomax) 0.4 mg HS PO Last administered on 04/09/18 20:59; Admin Dose 0.4 MG; Start 04/07/18 at 21:00 Furosemide (Lasix) 20 mg DAILY IV Last administered on 04/10/18 08:50; Admin Dose 20 MG; Start 04/07/18 at 09:00 Sevelamer Carbonate (Renvela) 0.8 gm WITH MEALS PO Last administered on 04/10/18at 08:49; Admin Dose 0.8 GM; Start 04/07/18 at 11:50 Citric Acid/ Sodium Citrate (Bicitra) 30 ml TID PO Last administered on 04/10/18at 08:50; Admin Dose 30 ML; Start 04/07/18 at 13:00 Hydralazine HCl (Apresoline) 25 mg Q8 PO Last administered on 04/10/18at 06:06; Admin Dose 25 MG; Start 04/07/18 at 14:00 Clonidine (Catapres) 0.1 mg Q6H PRN PO SBP>170; Start 04/07/18 at 13:30 Albumin Human 50 ml @ 100 mls/hr WITH DIALYSIS PRN IV SBP < 90 DURING DIALYSIS; Start 04/07/18 at 14:30 Sodium Chloride (NS) -To prime the dialy... DIRECTED FOR HD PRN IV HD; Start 04/07/18 at 14:30 Ibuprofen (Motrin) 400 mg Q6H PRN PO PAIN; Start 04/09/18 at 00:00 Zolpidem Tartrate (Ambien) 5 mg HS MAY REPEAT X 1 PRN PO INSOMNIA Last administered on 04/09/18at 23:15; Admin Dose 5 MG; Start 04/09/18 at 23:00 CONCEPCION GOMEZ NP Apr 10, 2018 11:09
[2018-04-10] MEDS ORDERED: NON-FORMULARY/PATIENT OWN MED (Temazepam* 15 MG) PO PRN (11:30)
--- NOTE | 2018-04-10 11:47 | CONS ---
Assessment/Plan Assessment/Plan Assessment/Plan (Daily) 1. acute fluid overload 2. ESRD on HD MWF at [facility] 3. H/o HTN 4. H/o HL 5. Anemia of ESRD 6. Sinus bradycardia 7. hypertension, subdural hemorrhage, status post craniotomy in 2017, prior tobacco intake Plan: s/p Hd today, ok to d/c after HD today - pt regular schedule for HD is MWF -he follows at [facility] has been following on patient will follow up Consultation Date/Type/Reason Admit Date/Time Apr 07, 2018 at 05:31 Initial Consult Date 04/07/18 Type of Consult NEPHROLOGY Requesting Provider: NORMA BANDA Date/Time of Note DATE: 04/10/18 TIME: 11:47 Exam/Review of Systems Exam Vitals Vital Signs Date Temp Pulse Resp B/P (MAP) Pulse Ox O2 O2 Flow FiO2 Time Delivery Rate 04/10/18 97.7 73 18 127/67 96 11:06 (87) 04/10/18 Room Air 11:00 04/10/18 2.0 09:57 Intake and Output 04/09/18 04/09/18 04/10/18 1515:00 23:00 07:00 IntakeIntake Total 800 ml 500 ml OutputOutput Total 150 ml BalanceBalance 800 ml 350 ml Results Result Diagram: 04/09/18 0550 04/09/18 0550 Medications Medication Current Medications IV Flush (NS 3 ml) 3 ml PER PROTOCOL IV ; Start 04/07/18 at 07:00 Ondansetron HCl (Zofran Inj) 4 mg Q6H PRN IV NAUSEA/VOMITING; Start 04/07/18 at 07:00 Acetaminophen (Tylenol Tab) 650 mg Q6H PRN PO .PAIN 1-3 OR TEMP Last administered on 04/08/18at 20:59; Admin Dose 650 MG; Start 04/07/18 at 07:00 Albuterol/ Ipratropium (Duoneb) 3 ml Q2H RESP THERAPY PRN HHN SHORTNESS OF BREATH; Start 04/07/18 at 07:00 Amlodipine Besylate (Norvasc) 10 mg DAILY PO Last administered on 04/10/18at 08:50; Admin Dose 10 MG; Start 04/07/18 at 09:00 Levothyroxine Sodium (Synthroid) 100 mcg BEFORE BREAKFAST PO Last administered on 04/10/18 06:06; Admin Dose 100 MCG; Start 04/07/18 at 07:00 Tamsulosin HCl (Flomax) 0.4 mg HS PO Last administered on 04/09/18 20:59; Admin Dose 0.4 MG; Start 04/07/18 at 21:00 Furosemide (Lasix) 20 mg DAILY IV Last administered on 04/10/18 08:50; Admin Dose 20 MG; Start 04/07/18 at 09:00 Sevelamer Carbonate (Renvela) 0.8 gm WITH MEALS PO Last administered on 04/10/18 08:49; Admin Dose 0.8 GM; Start 04/07/18 at 11:50 Citric Acid/ Sodium Citrate (Bicitra) 30 ml TID PO Last administered on 04/10/18 08:50; Admin Dose 30 ML; Start 04/07/18 at 13:00 Hydralazine HCl (Apresoline) 25 mg Q8 PO Last administered on 04/10/18 06:06; Admin Dose 25 MG; Start 04/07/18 at 14:00 Clonidine (Catapres) 0.1 mg Q6H PRN PO SBP>170; Start 04/07/18 at 13:30 Albumin Human 50 ml @ 100 mls/hr WITH DIALYSIS PRN IV SBP < 90 DURING DIALYSIS; Start 04/07/18 at 14:30 Sodium Chloride (NS) -To prime the dialy... DIRECTED FOR HD PRN IV HD; Start 04/07/18 at 14:30 Ibuprofen (Motrin) 400 mg Q6H PRN PO PAIN; Start 04/09/18 at 00:00 Zolpidem Tartrate (Ambien) 5 mg HS MAY REPEAT X 1 PRN PO INSOMNIA Last administered on 04/09/18 23:15; Admin Dose 5 MG; Start 04/09/18 at 23:00 Allopurinol (Zyloprim) 100 mg DAILY PO ; Start 04/11/18 at 09:00 Atorvastatin Calcium (Lipitor) 40 mg QHS PO ; Start 04/10/18 at 21:00 Calcitriol (Rocaltrol) 0.5 mcg DAILY PO ; Start 04/11/18 at 09:00 Donepezil HCl (Aricept) 5 mg QHS PO ; Start 04/10/18 at 21:00 Escitalopram Oxalate (Lexapro) 10 mg DAILY PO ; Start 04/11/18 at 09:00 Levothyroxine Sodium (Synthroid) 25 mcg BEFORE BREAKFAST PO ; Start 04/11/18 at 07:00 Lisinopril (Zestril) 10 mg BID PO ; Start 04/10/18 at 21:00 Metoprolol Succinate (Toprol Xl) 100 mg DAILY PO ; Start 04/11/18 at 09:00 Quetiapine Fumarate (Seroquel) 25 mg QHS PO ; Start 04/10/18 at 21:00; Status UNV Ranitidine HCl (Zantac) 150 mg DAILY PO ; Start 04/11/18 at 09:00; Status UNV Rivaroxaban (Xarelto) 15 mg DAILY PO ; Start 04/11/18 at 09:00; Status UNV Miscellaneous Information 15 mg HS PRN PO INSOMNIA; Start 04/10/18 at 11:30; Status UNV AMANDA HUERTAS MD Apr 10, 2018 11:47
--- NOTE | 2018-04-10 12:29 | CONS ---
Assessment/Plan Assessment/Plan Hospital Course (Demo Recall) IMPRESSION: 1. Congestive heart failure in the setting of acute on chronic renal failure, question of volume overload, question systolic versus diastolic, appears to be likely acute on chronic. 2. Hypertension, uncontrolled. 3. Abnormal electrocardiogram with anteroseptal Q's, assess for acute coronary syndrome. 4. History of coronary artery disease. 5. Altered mental state. 6. Bradycardia with elevated blood pressures. 7. Dyslipidemia. 8. Psychiatric disorder. 9. Hypothyroidism. 10. History of chronic obstructive pulmonary disease. 11. Former tobacco intake. 12. History of paroxysmal atrial fibrillation by chart biopsy. 13. Acute on chronic renal failure. Recc: -Tele -Now resumed on BB and will follow Rhythm/rate clsoely -Continue ACEI and will continue hydralazine/norvasc for now -Continue xarelto -HD fo0r volume removal Consultation Date/Type/Reason Admit Date/Time Apr 07, 2018 at 05:31 Initial Consult Date 04/07/18 Type of Consult Cardiology Reason for Consultation CHF Requesting Provider: NORMA BANDA Date/Time of Note DATE: 04/10/18 TIME: 12:21 Exam/Review of Systems Vital Signs Vitals Vital Signs Date Temp Pulse Resp B/P (MAP) Pulse Ox O2 O2 Flow FiO2 Time Delivery Rate 04/10/18 Nasal 2.0 12:04 Cannula 04/10/18 72 12:00 04/10/18 97.7 18 127/67 96 11:06 (87) Intake and Output 04/09/18 04/09/18 04/10/18 1515:00 23:00 07:00 IntakeIntake Total 800 ml 500 ml OutputOutput Total 150 ml BalanceBalance 800 ml 350 ml Exam Exam Review of Systems: CONSTITUTIONAL: No fevers, chills. PULMONARY: No sob CARDIOVASCULAR: No chest pain/palpitations GASTROINTESTINAL: No nausea/vomiting. GENITOURINARY: No hematuria/dysuria. MUSCULOSKELETAL: No myagias/arthalgias. PSYCHIATRIC: The patient denies depression. NEUROLOGIC: No weakness Constitutional: alert Psych: no complaints Head: normocephalic ENMT: mucosa pink and moist Neck: supple, jvd (9 cm water) Respiratory: clear to auscultation Cardiovascular: regular rate and rhythm, other (PAC/PVC) Gastrointestinal: soft, non-tender Musculoskeletal: muscle tone (normal) Extremities: edema (none) Neurological: other (No focal defiicts) Labs Result Diagram: 04/09/18 0550 04/09/18 0550 Medications Medications Current Medications IV Flush (NS 3 ml) 3 ml PER PROTOCOL IV ; Start 04/07/18 at 07:00 Ondansetron HCl (Zofran Inj) 4 mg Q6H PRN IV NAUSEA/VOMITING; Start 04/07/18 at 07:00 Acetaminophen (Tylenol Tab) 650 mg Q6H PRN PO .PAIN 1-3 OR TEMP Last administered on 04/08/18 20:59; Admin Dose 650 MG; Start 04/07/18 at 07:00 Albuterol/ Ipratropium (Duoneb) 3 ml Q2H RESP THERAPY PRN HHN SHORTNESS OF BREATH; Start 04/07/18 at 07:00 Amlodipine Besylate (Norvasc) 10 mg DAILY PO Last administered on 04/10/18 08:5 0; Admin Dose 10 MG; Start 04/07/18 at 09:00 Levothyroxine Sodium (Synthroid) 100 mcg BEFORE BREAKFAST PO Last administered on 04/10/18 06:06; Admin Dose 100 MCG; Start 04/07/18 at 07:00 Tamsulosin HCl (Flomax) 0.4 mg HS PO Last administered on 04/09/18 20:59; Admin Dose 0.4 MG; Start 04/07/18 at 21:00 Furosemide (Lasix) 20 mg DAILY IV Last administered on 04/10/18 08:50; Admin Dose 20 MG; Start 04/07/18 at 09:00 Sevelamer Carbonate (Renvela) 0.8 gm WITH MEALS PO Last administered on 04/10/18 08:49; Admin Dose 0.8 GM; Start 04/07/18 at 11:50 Citric Acid/ Sodium Citrate (Bicitra) 30 ml TID PO Last administered on 04/10/18 08:50; Admin Dose 30 ML; Start 04/07/18 at 13:00 Hydralazine HCl (Apresoline) 25 mg Q8 PO Last administered on 04/10/18 06:06; Admin Dose 25 MG; Start 04/07/18 at 14:00 Clonidine (Catapres) 0.1 mg Q6H PRN PO SBP>170; Start 04/07/18 at 13:30 Albumin Human 50 ml @ 100 mls/hr WITH DIALYSIS PRN IV SBP < 90 DURING DIALYSIS; Start 04/07/18 at 14:30 Sodium Chloride (NS) -To prime the dialy... DIRECTED FOR HD PRN IV HD; Start 04/07/18 at 14:30 Ibuprofen (Motrin) 400 mg Q6H PRN PO PAIN; Start 04/09/18 at 00:00 Zolpidem Tartrate (Ambien) 5 mg HS MAY REPEAT X 1 PRN PO INSOMNIA Last administered on 04/09/18at 23:15; Admin Dose 5 MG; Start 04/09/18 at 23:00 Allopurinol (Zyloprim) 100 mg DAILY PO ; Start 04/11/18 at 09:00 Atorvastatin Calcium (Lipitor) 40 mg QHS PO ; Start 04/10/18 at 21:00 Calcitriol (Rocaltrol) 0.5 mcg DAILY PO ; Start 04/11/18 at 09:00 Donepezil HCl (Aricept) 5 mg QHS PO ; Start 04/10/18 at 21:00 Escitalopram Oxalate (Lexapro) 10 mg DAILY PO ; Start 04/11/18 at 09:00 Levothyroxine Sodium (Synthroid) 25 mcg BEFORE BREAKFAST PO ; Start 04/11/18 at 07:00 Lisinopril (Zestril) 10 mg BID PO ; Start 04/10/18 at 21:00 Metoprolol Succinate (Toprol Xl) 100 mg DAILY PO ; Start 04/11/18 at 09:00 Quetiapine Fumarate (Seroquel) 25 mg QHS PO ; Start 04/10/18 at 21:00 Ranitidine HCl (Zantac) 150 mg DAILY PO ; Start 04/11/18 at 09:00 Rivaroxaban (Xarelto) 15 mg DAILY PO ; Start 04/11/18 at 09:00 GAEL HUMPHREY Apr 10, 2018 12:29
[2018-04-10] MEDS ORDERED: QUETIAPINE 25 MG TAB PO SCH (21:00)
[2018-04-10] MEDS ORDERED: DONEPEZIL 5 MG TAB PO SCH (21:00)
[2018-04-10] MEDS ORDERED: LISINOPRIL 10 MG TAB PO SCH (21:00)
[2018-04-10] MEDS ORDERED: ATORVASTATIN 40 MG TAB PO SCH (21:00)
[2018-04-11] MEDS ORDERED: LEVOTHYROXINE 25 MCG TAB PO SCH (07:00)
--- NOTE | 2018-04-11 08:55 | DS ---
Date/Time of Note Date/Time of Note DATE: 04/11/18 TIME: 08:50 Discharge Summary Admission/Discharge Info Admit Date/Time Apr 07, 2018 at 05:31 Discharge Date/Time Apr 10, 2018 at 17:30 (ELOPEMENT) Discharge Diagnosis SUBJECTIVE: Sitting up in chair. No acute distress. OBJECTIVE: Vital signs-see below PHYSICAL EXAM: Constitutional: Well-developed, adequately built, lying in bed comfortably. Psych: nl mood/affect, no complaints Head: atraumatic, normocephalic Eyes: nl conjunctiva, nl sclera ENMT: mucosa pink and moist, nl external ears & nose Neck: non-tender, supple Respiratory: clear to auscultation, normal air movement Cardiovascular: nl pulses, regular rate and rhythm Gastrointestinal: non-tender, soft, bowel sounds active in all 4 quadrants. Musculoskeletal/extremities: nl extremities to inspection, motor strength equal bilaterally, no focal deficit. Normal pulses,no cyanosis, no edema. Neurological: Forgetful...Alert oriented 3,nl speech, nl strength Skin: nl turgor ASSESSMENT/PLAN:67-year-old male w/ESRD (hd),afib,dementia, here w/Altered mental status... 1. Encephalopathy in ESRD/DEMENTIA, likely metabolic/uremic encephalopathy. 2. ESRD, hemodialysis MWF 3. Acute on chronic systolic congestive heart failure, status post pacemaker placed -EF 25-30%. 4. Hypertension 5. Hypothyroidism 6. Paroxysmal atrial fibrillation. 7. Anemia of ESRD 8. Coronary artery disease 8. Marijuana use 9. Dementia/ Depression/sleep disorders. Patient Condition: Stable Consults Dr. Schroeder, nephrology Dr. Nichols, cardiology Procedures 04/07/2018. Chest x-ray. IMPRESSION: 1. Moderate pulmonary edema secondary to CHF or volume overload. 2. Increased right lower lobe air space disease or atelectasis. 3. Small right pleural effusion 04/11/2018. CT brain without contrast. IMPRESSION: 1. No acute intracranial pathology. 2. Mild to moderate generalized parenchymal volume loss. 3. Mild to moderate chronic microvascular white matter ischemic disease. 4. Atherosclerosis. 5. Left frontal and parietal cyn holes. 04/07/2018. Renal ultrasound. IMPRESSION: 1. Suspect nonobstructing left intrarenal calculi. No associated hydronephrosis.. Consider further evaluation with CT scan 2. Right collecting system is normal in caliber. 3. Increased bilateral renal cortical echogenicity suggest medical renal disease. 4. Mild bilateral renal cortical thinning. 5. Simple bilateral renal cysts 04/07/2018. 2D echocardiogram. Conclusions: Normal left ventricular cavity size. Moderate concentric left ventricular hypertrophy. Severe left ventricular systolic dysfunction. Ejection fraction is visually estimated at 25-30 %. Tissue Doppler/Mitral Doppler indices are consistent with impaired relaxation (Stage I diastolic dysfunction). These segments of the LV are akinetic apical anterior segment, apical lateral segment, apical inferior segment and apical septum segment. There is moderate enlargement of left atrium. Mitral valve leaflets appear mildly thickened. Mild mitral annular calcification. Trace mitral regurgitation. Normal appearance of the tricuspid valve. Estimated peak PA systolic pressure 52 mmHg. There is mild tricuspid regurgitation. Electronically Signed By: Rick Nichols 2018-04-07 15:08:10 PST Hospital Course 67-year-old male w/ESRD (hd),afib,dementia, anemia, paroxysmal atrial fibrillation, coronary artery disease, systolic heart failure, here w/Altered mental status... Patient did not have any evidence of acute stroke. He was ruled out for acute coronary syndrome. Patient's encephalopathy is most likely toxic metabolic/uremic causes. He also had possible underlying dementia for which he was continued on home medications. Patient was dialyzed appropriately with our nephrology colleague. His ejection fraction showed 25-30% and was continued on maximal medical management. He was continued on ultrafiltration for fluid removal. Patient also has a pacemaker placed. He was being followed by our outdoor recreation specialist. He was continued on anticoagulation for underlying A. fib with a current EF status. Patient's mental status back to baseline. He was able to tolerate diet and activities well. At this time, he is medically stable however, receiving facility did not want to take patient back as they also requested psych evaluation and a neurology evaluation secondary to his advanced dementia status and inability of the staff to take care of him at the facility. For this reason, we decided to keep patient for in-house official neurology evaluation for dementia screening as well as a psych evaluation. However, nursing staff found patient eloped on 04/10/2018 around 5:30 PM. There were no belongings left in the room as well. Please refer to nursing documentation. Case d/w [facility] Reported Medications Quetiapine Fumarate* (Quetiapine Fumarate*) 25 Mg Tablet, 25 MG PO QHS, TAB 04/07/18 Escitalopram Oxalate* (Escitalopram Oxalate*) 10 Mg Tablet, 10 MG PO DAILY, #30 TAB 04/07/18 Donepezil* (Donepezil*) 5 Mg Tablet, 5 MG PO QHS, #30 TAB 04/07/18 Rivaroxaban* (Xarelto*) 15 Mg Tablet, 15 MG PO DAILY, TAB 04/07/18 Lisinopril* (Lisinopril*) 10 Mg Tablet, 10 MG PO BID, #30 TAB 04/07/18 Metoprolol Succinate* (Toprol XL*) 100 Mg Tab.sr.24h, 100 MG PO DAILY, #30 TAB 04/07/18 Ranitidine Hcl (Ranitidine Hcl) 150 Mg Capsule, 150 MG PO DAILY, #60 CAP 04/07/18 Atorvastatin* (Atorvastatin*) 40 Mg Tablet, 40 MG PO QHS, #30 TAB 04/07/18 Calcium Acetate* (Calcium Acetate*) 667 Mg Capsule, 667 MG PO WITH MEALS, #30 CAP 04/07/18 Levothyroxine Sodium* (Levothyroxine Sodium*) 25 Mcg Tablet, 25 MCG PO BEFORE BREAKFAST, #30 TAB 04/07/18 Allopurinol* (Allopurinol*) 100 Mg Tablet, 100 MG PO DAILY, TAB 04/07/18 Clopidogrel Bisulfate (Clopidogrel) 75 Mg Tablet, 75 MG PO DAILY, #30 TAB 04/07/18 Temazepam* (Temazepam*) 15 Mg Capsule, 15 MG PO HS PRN for INSOMNIA, CAP 04/07/18 Hydralazine Hcl* (Hydralazine Hcl*) 10 Mg Tablet, 10 MG PO Q6H, #60 TAB 12/24/16 Amlodipine Besylate* (Norvasc*) 10 Mg Tablet, 10 MG PO DAILY, TAB 12/24/16 Levothyroxine Sodium* (Synthroid*) 100 Mcg Tablet, 100 MCG PO BEFORE BREAKFAST, #30 TAB 12/24/16 Tamsulosin Hcl* (Tamsulosin Hcl*) 0.4 Mg Cap.er.24h, 0.4 MG PO HS, CAP 12/24/16 Calcitriol* (Calcitriol*) 0.5 Mcg Capsule, 0.5 MCG PO DAILY, CAP 11/17/17 Sevelamer Carbonate* (Renvela*) 800 Mg Tablet, 0.8 GM PO WITH MEALS, TAB 12/24/16 Primary Care Provider Care Physician No Primary CONCEPCION GOMEZ NP Apr 11, 2018 08:55
[2018-04-11] MEDS ORDERED: METOPROLOL (XL) 100 MG TAB PO SCH (09:00)
[2018-04-11] MEDS ORDERED: ALLOPURINOL 100 MG TAB PO SCH (09:00)
[2018-04-11] MEDS ORDERED: CALCITRIOL 0.25 MCG CAP PO SCH (09:00)
[2018-04-11] MEDS ORDERED: ESCITALOPRAM 10 MG TAB PO SCH (09:00)
[2018-04-11] MEDS ORDERED: RANITIDINE 150 MG TAB PO SCH (09:00)
[2018-04-11] MEDS ORDERED: RIVAROXABAN 15 MG TABLET PO SCH (09:00)
--- NOTE | 2018-04-13 08:51 | RADRPT ---
Vent Rate: 59 bpm RR Interval: 0 msec VA Interval: 140 msec QRS Duration: 104 msec QT Interval: 440 msec QTC Interval: 435 msec P-R-T Adams: 61 - 33 - 0 degrees Sinus bradycardia Voltage criteria for left ventricular hypertrophy Anteroseptal infarct , age undetermined ST & T wave abnormality, consider inferolateral ischemia Abnormal ECG Electronically Signed By: George Berrios
== END 2018-04-10 17:30 | disposition left against medical advice (07) | DRG 70 ==
LOC: E/R 03:36 → TEL 05:31
PROVIDERS: ADMIT Internal Medicine; ATTEND Hospitalist
PROC: 5A1D70Z Performance of Urinary Filtration, Intermittent, Less than 6 Hours Per Day (ICD-10-PCS; principal; 2018-04-08)
DX: G93.41 Metabolic encephalopathy (principal); N18.6 End stage renal disease; I50.23 Acute on chronic systolic (congestive) heart failure; N17.9 Acute kidney failure, unspecified; E87.2 Acidosis; I13.2 Hypertensive heart and chronic kidney disease with heart failure and with stage 5 chronic kidney disease, or end stage renal disease; Z99.2 Dependence on renal dialysis; I48.0 Paroxysmal atrial fibrillation; I25.10 Atherosclerotic heart disease of native coronary artery without angina pectoris; Z95.0 Presence of cardiac pacemaker; F03.90 Unspecified dementia, unspecified severity, without behavioral disturbance, psychotic disturbance, mood disturbance, and anxiety; E87.5 Hyperkalemia; B19.20 Unspecified viral hepatitis C without hepatic coma; F12.90 Cannabis use, unspecified, uncomplicated; Z86.73 Personal history of transient ischemic attack (TIA), and cerebral infarction without residual deficits; F17.200 Nicotine dependence, unspecified, uncomplicated; D63.1 Anemia in chronic kidney disease; I25.2 Old myocardial infarction; Z87.891 Personal history of nicotine dependence; J44.9 Chronic obstructive pulmonary disease, unspecified; E03.9 Hypothyroidism, unspecified; E78.5 Hyperlipidemia, unspecified; F99 Mental disorder, not otherwise specified; R00.1 Bradycardia, unspecified; F32.9 Major depressive disorder, single episode, unspecified; G47.9 Sleep disorder, unspecified
CPT/HCPCS: 36415; 36600; 70450; 71045; 76775; 80048; 80053; 80061; 80307; 81001; 82550; 82553; 82803; 83036; 83605; 83735; 84100; 84443; 84484; 84560; 85025; 85610; 85730; 87040; 87086; 87340; 90686; 90935; 92610; 93005; 93306; 96365; 96366; 96368; 97161; J1940; J2543; J3370

== ENCOUNTER 2018-04-17 10:09 | Inpatient (IN) | payer MEDICARE, MEDICAID ==
[~2018-04-17] VITALS: Ht 185.4 cm; Wt 66.0 kg
[~2018-04-17 10:09] MED LIST changes: +ALLO100T PO; +ATOR40TA68 PO; +CALC667C PO; +CLOP75TA27 PO; +DONE5TAB7 PO; +ESCI10TA48 PO; +LEVO25TA6 PO; +LISI10TA2 PO; +METO-336 PO; +QUET25TA33 PO; +RANI150C11 PO; +RIVA15TA PO; +TEMA15CA PO
[2018-04-17] MEDS ORDERED: ALBUTEROL 0.083% (NEB) 2.5 MG/3 ML AMP HHN STA (10:23)
[2018-04-17] MEDS ORDERED: IPRATROPIUM (NEB) 0.5 MG/2.5 ML AMP HHN ONE (10:30)
[2018-04-17] MEDS ORDERED: NA BICARBONATE 8.4% 50 ML SYG IV STA (12:13)
[2018-04-17] MEDS ORDERED: SODIUM POLYSTYRENE 15 GM KIT (POWDER + SORBITOL) PO STA (12:13)
[2018-04-17] MEDS ORDERED: ACETAMINOPHEN 325 MG TAB PO PRN ×2 (12:30→13:00)
[2018-04-17] MEDS ORDERED: ONDANSETRON 4 MG INJ IV PRN (12:30)
[2018-04-17] MEDS ORDERED: ALBUTEROL/IPRATROPIUM (NEB) 3 ML AMP HHN PRN (13:00)
[2018-04-17] MEDS ORDERED: NACL 0.9% 3 ML SYG IV SCH (13:00)
[2018-04-17] MEDS ORDERED: FUROSEMIDE 20 MG INJ IV SCH (13:00)
--- NOTE | 2018-04-17 13:59 | ERD ---
ER Documentation Chief Complaint Chief Complaint COPD Exacerbation started today HPI Patient is a 68-year-old male with coronary disease, CHF, hypertension, end- stage renal disease, and mild dementia who presents with shortness of breath. The patient was brought in by ambulance. The patient has a history of similar and the shortness of breath started this morning. The patient has no cough and no fevers. The patient says that he has possible COPD. Upon review of old medical records the patient has had 3 visits since 2017. He was admitted on April 07 of this year and discharged on April 10. He did receive dialysis yesterday. ROS All systems reviewed and are negative except as per history of present illness. Medications Home Meds Reported Medications Quetiapine Fumarate* (Quetiapine Fumarate*) 25 Mg Tablet, 25 MG PO QHS, TAB 04/07/18 Escitalopram Oxalate* (Escitalopram Oxalate*) 10 Mg Tablet, 10 MG PO DAILY, #30 TAB 04/07/18 Donepezil* (Donepezil*) 5 Mg Tablet, 5 MG PO QHS, #30 TAB 04/07/18 Rivaroxaban* (Xarelto*) 15 Mg Tablet, 15 MG PO DAILY, TAB 04/07/18 Lisinopril* (Lisinopril*) 10 Mg Tablet, 10 MG PO BID, #30 TAB 04/07/18 Metoprolol Succinate* (Toprol XL*) 100 Mg Tab.sr.24h, 100 MG PO DAILY, #30 TAB 04/07/18 Ranitidine Hcl (Ranitidine Hcl) 150 Mg Capsule, 150 MG PO DAILY, #60 CAP 04/07/18 Atorvastatin* (Atorvastatin*) 40 Mg Tablet, 40 MG PO QHS, #30 TAB 04/07/18 Calcium Acetate* (Calcium Acetate*) 667 Mg Capsule, 667 MG PO WITH MEALS, #30 CAP 04/07/18 Levothyroxine Sodium* (Levothyroxine Sodium*) 25 Mcg Tablet, 25 MCG PO BEFORE BREAKFAST, #30 TAB 04/07/18 Allopurinol* (Allopurinol*) 100 Mg Tablet, 100 MG PO DAILY, TAB 04/07/18 Clopidogrel Bisulfate (Clopidogrel) 75 Mg Tablet, 75 MG PO DAILY, #30 TAB 04/07/18 Temazepam* (Temazepam*) 15 Mg Capsule, 15 MG PO HS PRN for INSOMNIA, CAP 04/07/18 Hydralazine Hcl* (Hydralazine Hcl*) 10 Mg Tablet, 10 MG PO Q6H, #60 TAB 12/24/16 Amlodipine Besylate* (Norvasc*) 10 Mg Tablet, 10 MG PO DAILY, TAB 12/24/16 Levothyroxine Sodium* (Synthroid*) 100 Mcg Tablet, 100 MCG PO BEFORE BREAKFAST, #30 TAB 12/24/16 Tamsulosin Hcl* (Tamsulosin Hcl*) 0.4 Mg Cap.er.24h, 0.4 MG PO HS, CAP 12/24/16 Calcitriol* (Calcitriol*) 0.5 Mcg Capsule, 0.5 MCG PO DAILY, CAP 12/24/16 Sevelamer Carbonate* (Renvela*) 800 Mg Tablet, 0.8 GM PO WITH MEALS, TAB 12/24/16 Allergies Allergies: Coded Allergies: No Known Allergy (Unverified , 12/24/16) PMhx/Soc History of Surgery: Yes (tonsillectomy , FISTULA LT UE , pacemaker ) Anesthesia Reaction: No (Unknown) Hx Neurological Disorder: No Hx Respiratory Disorders: No Hx Cardiac Disorders: Yes (hx of heart attack) Hx Psychiatric Problems: No Hx Miscellaneous Medical Probl: Yes (COPD , ESRD ) Hx Alcohol Use: Yes (beer a day) Hx Substance Use: Yes (smoke marijuana everyday) Hx Tobacco Use: No Smoking Status: Former smoker FmHx Family History: No diabetes Physical Exam Vitals Vital Signs Date Temp Pulse Resp B/P (MAP) Pulse Ox O2 O2 Flow FiO2 Time Delivery Rate 04/17/18 96 18 144/71 98 Room Air 12:30 (95) 04/17/18 Nasal 10:43 Cannula 04/17/18 Nasal 2 10:41 Cannula 04/17/18 100 20 96 21 10:38 04/17/18 97.9 104 18 190/88 93 10:29 (122) Physical Exam Const: No acute distress Head: Atraumatic Eyes: Normal Conjunctiva ENT: Normal External Ears, Nose and Mouth. Neck: Full range of motion. No meningismus. Resp: Clear to auscultation bilaterally Cardio: Regular rate and rhythm, no murmurs Abd: Soft, non tender, non distended. Normal bowel sounds Skin: No petechiae or rashes Back: No midline or flank tenderness Ext: No cyanosis, or edema Neur: Awake and alert Psych: Normal Mood and Affect Result Diagram: 04/17/18 1030 04/17/18 1030 Results 24 hrs Laboratory Tests Test 04/17/18 10:30 04/17/18 10:36 04/17/18 12:29 White Blood Count 9.8 10^3/ul Red Blood Count 3.54 10^6/ul Hemoglobin 11.7 g/dl Hematocrit 36.3 % Mean Corpuscular Volume 102.5 fl Mean Corpuscular Hemoglobin 33.1 pg Mean Corpuscular 32.2 g/dl Hemoglobin Concent Red Cell Distribution Width 13.5 % Platelet Count 221 10^3/UL Mean Platelet Volume 9.5 fl Immature Granulocytes % 0.500 % Neutrophils % 72.3 % Lymphocytes % 15.5 % Monocytes % 4.2 % Eosinophils % 7.0 % Basophils % 0.5 % Nucleated Red Blood Cells % 0.0 /100WBC Immature Granulocytes # 0.050 10^3/ul Neutrophils # 7.1 10^3/ul Lymphocytes # 1.5 10^3/ul Monocytes # 0.4 10^3/ul Eosinophils # 0.7 10^3/ul Basophils # 0.1 10^3/ul Nucleated Red Blood Cells # 0.0 10^3/ul Prothrombin Time 18.5 Sec Prothrombin Time Ratio 1.4 INR International Normalized Ratio 1.53 Activated Partial Thromboplast 36.5 Sec Time Sodium Level 139 mmol/L Potassium Level 6.0 mmol/L Chloride Level 103 mmol/L Carbon Dioxide Level 21 mmol/L Anion Gap 15 Blood Urea Nitrogen 37 mg/dl Creatinine 4.88 mg/dl Est Glomerular Filtrat Rate mL/min 12 mL/min Glucose Level 137 mg/dl Calcium Level 10.2 mg/dl Troponin I 0.063 ng/ml POC Venous Lactate 1.8 mmol/L 1.8 mmol/L Current Medications Medications Dose Sig/Jorge L Start Time Status Last (Trade) Ordered Route PRN Stop Time Admin Dose Reason Admin Albuterol 5 mg ONCE STAT 04/17/18 DC 04/17/18 (Proventil HHN 10:23 10:33 0.083% (Neb)) 04/17/18 10:24 Ipratropium 0.5 mg ONCE ONCE 04/17/18 DC 04/17/18 Lancing HHN 10:30 10:33 (Atrovent 04/17/18 10:31 0.02% (Neb)) Sodium 30 gm ONCE STAT 04/17/18 DC 04/17/18 Polystyrene PO 12:13 12:31 Sulfonate 04/17/18 12:15 (Kayexelate 15 Gm Kit (Powder+Sorbi edmond)) Sodium 50 ml ONCE STAT 04/17/18 DC 04/17/18 Bicarbonate IV 12:13 12:30 (Na Bicarb 04/17/18 12:15 8.4% Syg) Ondansetron 4 mg ER BRIDGE 04/17/18 HCl (Zofran PRN IV 12:30 Inj) NAUSEA/VOMITI 04/18/18 12:29 NG 650 mg ER BRIDGE 04/17/18 DC Acetaminophen PRN PO 12:30 (Tylenol .MILD PAIN 04/17/18 13:10 Tab) 1-3 OR TEMP IV Flush 3 ml PER 04/17/18 (NS 3 ml) PROTOCOL IV 13:00 650 mg Q6H PRN 04/17/18 Acetaminophen PO .PAIN 1-3 13:00 (Tylenol OR TEMP Tab) Amlodipine 10 mg DAILY PO 04/18/18 Besylate 09:00 (Norvasc) 40 mg QHS PO 04/17/18 Atorvastatin 21:00 Calcium (Lipitor) Calcitriol 0.5 mcg DAILY PO 04/18/18 (Rocaltrol) 09:00 Calcium 667 mg WITH MEALS 04/17/18 Acetate PO 18:00 (Phoslo) Donepezil 5 mg QHS PO 04/17/18 HCl 21:00 (Aricept) Sevelamer 0.8 gm WITH MEALS 04/17/18 Carbonate PO 18:00 (Renvela) Tamsulosin 0.4 mg HS PO 04/17/18 HCl 21:00 (Flomax) Allopurinol 100 mg DAILY PO 04/18/18 (Zyloprim) 09:00 10 mg DAILY PO 04/18/18 Escitalopram 09:00 Oxalate (Lexapro) 100 mcg BEFORE 04/18/18 Levothyroxine BREAKFAST 07:00 Sodium PO (Synthroid) Lisinopril 10 mg BID PO 04/17/18 (Zestril) 21:00 Metoprolol 100 mg DAILY PO 04/18/18 Succinate 09:00 (Toprol Xl) Quetiapine 25 mg QHS PO 04/17/18 Fumarate 21:00 (Seroquel) Rivaroxaban 15 mg DAILY PO 04/18/18 UNV (Xarelto) 09:00 Furosemide 20 mg DAILY IV 04/17/18 04/17/18 (Lasix) 13:00 13:17 Albuterol/ 3 ml Q6HWA RESP 04/17/18 Ipratropium THERAPY HHN 14:00 (Duoneb) Albuterol/ 3 ml Q2H RESP 04/17/18 Ipratropium THERAPY PRN 13:00 (Duoneb) HHN shortness of breath Procedures/MDM Chest x-ray read by radiology. EKG read by me: Rate/Rhythm: Regular rate and rhythm at a normal rate Intervals: Normal Impression: No evidence of ischemia or arrhythmia Smoking Cessation Therapy: Pt. was lectured for greater than 3 minutes on the health risks of continued smoking and the benefits of cessation. Patient is a 68-year-old male with multiple comorbidities who presents with shortness of breath. He was found to have hyperkalemia and was treated with a lbuterol, bicarbonate, and Kayexalate. The patient will need admission for dialysis. The patient will be admitted to the panel team. He will be admitted to a telemetry bed. I doubt pneumonia or pneumothorax at this time. Critical Care: Time: 35 minutes excluding all billable procedures. Treatments/Evaluations: Close monitoring and treatment of unstable vital signs, cardiorespiratory, and neurologic status, while maintaining tight balance of fluid, respiratory, and cardiac interventions. Departure Diagnosis: Primary Impression: Hyperkalemia Additional Impression: Shortness of breath Condition: MICKEY Dwyer MD Apr 17, 2018 13:59
[2018-04-17] MEDS ORDERED: ALBUTEROL/IPRATROPIUM (NEB) 3 ML AMP HHN SCH (14:00)
[2018-04-17 15:59] VITALS: BP 155/72; PULSE 70; RESP 18
[2018-04-17 16:16] VITALS: Ht 185.4 cm; Wt 66.0 kg
--- NOTE | 2018-04-17 17:02 | HP ---
Date/Time of Note Date/Time of Note DATE: 04/17/18 TIME: 17:02 Assessment/Plan VTE Prophylaxis Pharmacological prophylaxis: other Lines/Catheters IV Catheter Type (from Nrs): Saline Lock Assessment/Plan Hospital Course Patient is a male with a past medical history significant for congestive heart failure with ejection fraction of 25% with pacemaker, end-stage renal disease on hemodialysis, coronary artery disease, hypothyroidism, COPD who presents to [facility] for sudden onset shortness of breath while at his assisted living facility. Patient was recently admitted approximately 2 weeks ago however had eloped. Patient eloped back to his assisted living facility and had no issues but unfortunately was not prescribed the appropriate medication at discharge since he eloped. Patient currently has no shortness of breath and states that the shortness of breath was sudden onset this morning and has since resolved completely. Patient thinks that his COPD might have acted up. Patient receives dialysis on a normal basis. Patient currently denies any chest pain, shortness of breath, nausea, vomiting, headache, leg pain Objective Physical exam General: Patient is laying in bed and answers questions appropriately Mentation: Patient is alert and oriented , Head: Normocephalic atraumatic Eyes: EOMI, pupils reactive to light Neck: Supple, nontender, midline Respiratory: Clear to auscultation bilaterally Cardiovascular: regular rate, no obvious murmurs Gastrointestinal: non-tender to palpation, bowel sounds heard. Neurological: Moves all extremities spontaneously Skin: No new skin lesions Assessment and plan Shortness of breath -Transient, resolving -DuoNeb -Likely combined with COPD with CHF as chest x-ray does show vascular congestion -Nephrology to diuresis and dialyze -Trend troponins Acute on chronic congestive heart failure, systolic, EF of 25% -Cardiology reconsulted, Dr. Nichols -Since patient eloped last time, medications were not optimized, cardiology recommendations appreciated for optimization of heart medications before discharge Coronary artery disease Cardiology recommendations appreciated Mild dementia, depression, sleep disorder -Continue previous medication of Lexapro and Seroquel End-stage renal disease -Nephrology on board to dialyze Hypertension -Continue home meds Anemia -Chronic, continue home meds Hypothyroidism -Continue home meds History of A. fib -Continue Xarelto as was initiated by cardiology during previous admission COPD -Start Breo -DuoNeb as needed Disposition -We will confirm with case management the patient has no barriers to discharge as last admission, assisting facility did not want to take him back until he got a dementia workup however after he eloped they let him walking on his own reconnaissance -Cardiology consultation pending -Optimize medications and dialysis per nephrology, discharge when medications optimized. Result Diagram: 04/17/18 1030 04/17/18 1030 Results 24hrs Laboratory Tests Test 04/17/18 10:30 04/17/18 10:36 04/17/18 12:29 04/17/18 14:31 White Blood Count 9.8 # Red Blood Count 3.54 L Hemoglobin 11.7 L Hematocrit 36.3 L Mean Corpuscular 102.5 H Volume Mean Corpuscular 33.1 H Hemoglobin Mean Corpuscular 32.2 Hemoglobin Concent Red Cell 13.5 Distribution Width Platelet Count 221 # Mean Platelet Volume 9.5 Immature 0.500 H Granulocytes % Neutrophils % 72.3 Lymphocytes % 15.5 Monocytes % 4.2 Eosinophils % 7.0 Basophils % 0.5 Nucleated Red Blood 0.0 Cells % Immature 0.050 H Granulocytes # Neutrophils # 7.1 Lymphocytes # 1.5 Monocytes # 0.4 Eosinophils # 0.7 H Basophils # 0.1 Nucleated Red Blood 0.0 Cells # Prothrombin Time 18.5 #H Prothrombin Time 1.4 Ratio INR International 1.53 Normalized Ratio Activated 36.5 H Partial Thromboplast Time Sodium Level 139 Potassium Level 6.0 H Chloride Level 103 Carbon Dioxide Level 21 Anion Gap 15 H Blood Urea Nitrogen 37 H Creatinine 4.88 H Est Glomerular 12 L Filtrat Rate mL/min Glucose Level 137 Calcium Level 10.2 Troponin I 0.063 POC Venous Lactate 1.8 1.8 Lactic Acid Level 1.6 HPI/ROS Admit Date/Time Admit Date/Time Apr 17, 2018 at 12:24 PMH/Family/Social Past Medical History Medications Current Medications Ondansetron HCl (Zofran Inj) 4 mg ER BRIDGE PRN IV NAUSEA/VOMITING; Start 04/17/18 at 12:30; Stop 04/18/18 at 12:29 IV Flush (NS 3 ml) 3 ml PER PROTOCOL IV ; Start 04/17/18 at 13:00 Acetaminophen (Tylenol Tab) 650 mg Q6H PRN PO .PAIN 1-3 OR TEMP; Start 04/17/18 at 13:00 Amlodipine Besylate (Norvasc) 10 mg DAILY PO ; Start 04/18/18 at 09:00 Atorvastatin Calcium (Lipitor) 40 mg QHS PO ; Start 04/17/18 at 21:00 Calcitriol (Rocaltrol) 0.5 mcg DAILY PO ; Start 04/18/18 at 09:00 Calcium Acetate (Phoslo) 667 mg WITH MEALS PO ; Start 04/17/18 at 17:55 Donepezil HCl (Aricept) 5 mg QHS PO ; Start 04/17/18 at 21:00 Sevelamer Carbonate (Renvela) 0.8 gm WITH MEALS PO ; Start 04/17/18 at 17:55 Tamsulosin HCl (Flomax) 0.4 mg HS PO ; Start 04/17/18 at 21:00 Allopurinol (Zyloprim) 100 mg DAILY PO ; Start 04/18/18 at 09:00 Escitalopram Oxalate (Lexapro) 10 mg DAILY PO ; Start 04/18/18 at 09:00 Levothyroxine Sodium (Synthroid) 100 mcg BEFORE BREAKFAST PO ; Start 04/18/18 at 07:00 Lisinopril (Zestril) 10 mg BID PO ; Start 04/17/18 at 21:00 Metoprolol Succinate (Toprol Xl) 100 mg DAILY PO ; Start 04/18/18 at 09:00 Quetiapine Fumarate (Seroquel) 25 mg QHS PO ; Start 04/17/18 at 21:00 Rivaroxaban (Xarelto) 15 mg DAILY PO ; Start 04/18/18 at 09:00; Status UNV Furosemide (Lasix) 20 mg DAILY IV Last administered on 04/17/18at 13:17; Admin Dose 20 MG; Start 04/17/18 at 13:00 Albuterol/ Ipratropium (Duoneb) 3 ml Q6HWA RESP THERAPY HHN Last administered on 04/17/18at 14:36; Admin Dose 3 ML; Start 04/17/18 at 14:00 Albuterol/ Ipratropium (Duoneb) 3 ml Q2H RESP THERAPY PRN HHN shortness of breath; Start 04/17/18 at 13:00 Coded Allergies: No Known Allergy (Unverified , 12/24/16) Past Surgical History Past Surgical Hx: other Family History Significant Family History: no pertinent family hx Social History Smoking Status: Current some day smoker Exam/Review of Systems Vital Signs Vitals Vital Signs Date Temp Pulse Resp B/P (MAP) Pulse Ox O2 O2 Flow FiO2 Time Delivery Rate 04/17/18 97.7 70 18 155/72 97 Room Air 15:59 (99) 04/17/18 21 14:36 04/17/18 2 10:41 BARBARA ESQUIVEL Apr 17, 2018 17:02
[2018-04-17 17:27] VITALS: PULSE 69
[2018-04-17] MEDS: SEVELAMER CARBONATE 0.8 GM PKT PO SCH (17:47)
[2018-04-17] MEDS: CALCIUM ACETATE 667 MG CAP PO SCH (17:47)
--- NOTE | 2018-04-17 18:13 | CONS ---
Assessment/Plan Assessment/Plan Assessment/Plan (Daily) 1. acute hyperkalemia 2. ESRD on HD through AVF 3. acute on chronic CHF,systolic 4. H/o CAD s/p pacemaker placement 5. H/o HTN 6. H/o HL 7. h/o COPD Plan: pt was seen in ED, Paln for HD tomorrow s/p Treatemnt for hyperkalemia inED< follow up K imporved to 4.8 thanks for consultation, I will continue to follow up Consultation Date/Type/Reason Admit Date/Time Apr 17, 2018 at 12:24 Date of Consultation: Apr 17, 2018 Type of Consult NEPHROLOGY Reason for Consultation ESRD on HD , Requesting Provider: BARBARA ESQUIVEL Date/Time of Note DATE: 04/17/18 TIME: 18:13 Hx of Present Illness 68 y/o male with a past medical history significant for congestive heart failure with ejection fraction of 25% with pacemaker, end-stage renal disease on hemodialysis, coronary artery disease, hypothyroidism, COPD who presents to [facility] for sudden onset shortness of breath while at his assisted living facility. pt had a ahyperkalemia in ED- received Rx for Hyperkalemia, renal has been consulted for acute hyperkalemia, ESRD onHD Constitutional: no complaints Eyes: no complaints ENT: no complaints Respiratory: cough, pleuritic pain, shortness of breath Gastrointestinal: constipation, nausea Genitourinary: no complaints Musculoskeletal: no complaints Skin: no complaints Endocrine: no complaints Lymphatic: no complaints Psychological: no complaints Immunologic: no complaints Past Medical History Medical History: coronary artery disease, high cholesterol, hypertension, other Home Meds Reported Medications Quetiapine Fumarate* (Quetiapine Fumarate*) 25 Mg Tablet, 25 MG PO QHS, TAB 04/07/18 Escitalopram Oxalate* (Escitalopram Oxalate*) 10 Mg Tablet, 10 MG PO DAILY, #30 TAB 04/07/18 Donepezil* (Donepezil*) 5 Mg Tablet, 5 MG PO QHS, #30 TAB 04/07/18 Rivaroxaban* (Xarelto*) 15 Mg Tablet, 15 MG PO DAILY, TAB 04/07/18 Lisinopril* (Lisinopril*) 10 Mg Tablet, 10 MG PO BID, #30 TAB 04/07/18 Metoprolol Succinate* (Toprol XL*) 100 Mg Tab.sr.24h, 100 MG PO DAILY, #30 TAB 04/07/18 Ranitidine Hcl (Ranitidine Hcl) 150 Mg Capsule, 150 MG PO DAILY, #60 CAP 04/07/18 Atorvastatin* (Atorvastatin*) 40 Mg Tablet, 40 MG PO QHS, #30 TAB 04/07/18 Calcium Acetate* (Calcium Acetate*) 667 Mg Capsule, 667 MG PO WITH MEALS, #30 CAP 04/07/18 Levothyroxine Sodium* (Levothyroxine Sodium*) 25 Mcg Tablet, 25 MCG PO BEFORE BREAKFAST, #30 TAB 04/07/18 Allopurinol* (Allopurinol*) 100 Mg Tablet, 100 MG PO DAILY, TAB 04/07/18 Clopidogrel Bisulfate (Clopidogrel) 75 Mg Tablet, 75 MG PO DAILY, #30 TAB 04/07/18 Temazepam* (Temazepam*) 15 Mg Capsule, 15 MG PO HS PRN for INSOMNIA, CAP 04/07/18 Hydralazine Hcl* (Hydralazine Hcl*) 10 Mg Tablet, 10 MG PO Q6H, #60 TAB 12/24/16 Amlodipine Besylate* (Norvasc*) 10 Mg Tablet, 10 MG PO DAILY, TAB 12/24/16 Levothyroxine Sodium* (Synthroid*) 100 Mcg Tablet, 100 MCG PO BEFORE BREAKFAST, #30 TAB 12/24/16 Tamsulosin Hcl* (Tamsulosin Hcl*) 0.4 Mg Cap.er.24h, 0.4 MG PO HS, CAP 12/24/16 Calcitriol* (Calcitriol*) 0.5 Mcg Capsule, 0.5 MCG PO DAILY, CAP 12/24/16 Sevelamer Carbonate* (Renvela*) 800 Mg Tablet, 0.8 GM PO WITH MEALS, TAB 12/24/16 Medications Current Medications Ondansetron HCl (Zofran Inj) 4 mg ER BRIDGE PRN IV NAUSEA/VOMITING; Start 04/17/18 at 12:30; Stop 04/18/18 at 12:29 IV Flush (NS 3 ml) 3 ml PER PROTOCOL IV ; Start 04/17/18 at 13:00 Acetaminophen (Tylenol Tab) 650 mg Q6H PRN PO .PAIN 1-3 OR TEMP; Start 04/17/18 at 13:00 Amlodipine Besylate (Norvasc) 10 mg DAILY PO ; Start 04/18/18 at 09:00 Atorvastatin Calcium (Lipitor) 40 mg QHS PO ; Start 04/17/18 at 21:00 Calcitriol (Rocaltrol) 0.5 mcg DAILY PO ; Start 04/18/18 at 09:00 Calcium Acetate (Phoslo) 667 mg WITH MEALS PO Last administered on 04/17/18at 17:47; Admin Dose 667 MG; Start 04/17/18 at 17:55 Donepezil HCl (Aricept) 5 mg QHS PO ; Start 04/17/18 at 21:00 Sevelamer Carbonate (Renvela) 0.8 gm WITH MEALS PO Last administered on 04/17/18at 17:47; Admin Dose 0.8 GM; Start 04/17/18 at 17:55 Tamsulosin HCl (Flomax) 0.4 mg HS PO ; Start 04/17/18 at 21:00 Allopurinol (Zyloprim) 100 mg DAILY PO ; Start 04/18/18 at 09:00 Escitalopram Oxalate (Lexapro) 10 mg DAILY PO ; Start 04/18/18 at 09:00 Levothyroxine Sodium (Synthroid) 100 mcg BEFORE BREAKFAST PO ; Start 04/18/18 at 07:00 Lisinopril (Zestril) 10 mg BID PO ; Start 04/17/18 at 21:00 Metoprolol Succinate (Toprol Xl) 100 mg DAILY PO ; Start 04/18/18 at 09:00 Quetiapine Fumarate (Seroquel) 25 mg QHS PO ; Start 04/17/18 at 21:00 Rivaroxaban (Xarelto) 15 mg DAILY PO ; Start 04/18/18 at 09:00; Status UNV Albuterol/ Ipratropium (Duoneb) 3 ml Q2H RESP THERAPY PRN HHN shortness of breath; Start 04/17/18 at 13:00 Fluticasone/ Vilanterol (Breo Ellipta 100-25 Mcg Inh) 1 inh DAILY INH ; Start 04/17/18 at 18:30 Furosemide (Lasix) 20 mg BID IV ; Start 04/17/18 at 21:00; Status UNV Allergies: Coded Allergies: No Known Allergy (Unverified , 12/24/16) Past Surgical History Past Surgical Hx: other (AVF surgery, pacemaker, left knee surgery ) Family History Significant Family History: no pertinent family hx Social History Alcohol Use: none Smoking Status: Current some day smoker Drug Use: none Exam/Review of Systems Exam Vitals Vital Signs Date Temp Pulse Resp B/P (MAP) Pulse Ox O2 O2 Flow FiO2 Time Delivery Rate 04/17/18 69 17:27 04/17/18 97.7 18 155/72 97 Room Air 15:59 (99) 04/17/18 21 14:36 04/17/18 2 10:41 Constitutional: alert Psych: no complaints Head: normocephalic ENMT: nl external ears & nose Neck: supple, non-tender Respiratory: congested cough, crackles/rales, diminished breath sounds Cardiovascular: regular rate and rhythm, nl pulses Gastrointestinal: soft, non-tender Musculoskeletal: swelling Extremities: normal pulses Neurological: ACTIVITIES DIRECTOR SCOUTING II-XII intact, nl mental status, nl speech, nl strength Skin: nl turgor Lymph: nl lymph nodes Results Result Diagram: 04/17/18 1030 04/17/18 1030 Results 24hrs Laboratory Tests Test 04/17/18 10:30 04/17/18 10:36 04/17/18 12:29 04/17/18 14:31 White Blood Count 9.8 # Red Blood Count 3.54 L Hemoglobin 11.7 L Hematocrit 36.3 L Mean Corpuscular 102.5 H Volume Mean Corpuscular 33.1 H Hemoglobin Mean Corpuscular 32.2 Hemoglobin Concent Red Cell 13.5 Distribution Width Platelet Count 221 # Mean Platelet Volume 9.5 Immature 0.500 H Granulocytes % Neutrophils % 72.3 Lymphocytes % 15.5 Monocytes % 4.2 Eosinophils % 7.0 Basophils % 0.5 Nucleated Red Blood 0.0 Cells % Immature 0.050 H Granulocytes # Neutrophils # 7.1 Lymphocytes # 1.5 Monocytes # 0.4 Eosinophils # 0.7 H Basophils # 0.1 Nucleated Red Blood 0.0 Cells # Prothrombin Time 18.5 #H Prothrombin Time 1.4 Ratio INR International 1.53 Normalized Ratio Activated 36.5 H Partial Thromboplast Time Sodium Level 139 Potassium Level 6.0 H Chloride Level 103 Carbon Dioxide Level 21 Anion Gap 15 H Blood Urea Nitrogen 37 H Creatinine 4.88 H Est Glomerular 12 L Filtrat Rate mL/min Glucose Level 137 Calcium Level 10.2 Troponin I 0.063 POC Venous Lactate 1.8 1.8 Lactic Acid Level 1.6 Medications Medication Current Medications Ondansetron HCl (Zofran Inj) 4 mg ER BRIDGE PRN IV NAUSEA/VOMITING; Start 04/17/18 at 12:30; Stop 04/18/18 at 12:29 IV Flush (NS 3 ml) 3 ml PER PROTOCOL IV ; Start 04/17/18 at 13:00 Acetaminophen (Tylenol Tab) 650 mg Q6H PRN PO .PAIN 1-3 OR TEMP; Start 04/17/18 at 13:00 Amlodipine Besylate (Norvasc) 10 mg DAILY PO ; Start 04/18/18 at 09:00 Atorvastatin Calcium (Lipitor) 40 mg QHS PO ; Start 04/17/18 at 21:00 Calcitriol (Rocaltrol) 0.5 mcg DAILY PO ; Start 04/18/18 at 09:00 Calcium Acetate (Phoslo) 667 mg WITH MEALS PO Last administered on 04/17/18at 17:47; Admin Dose 667 MG; Start 04/17/18 at 17:55 Donepezil HCl (Aricept) 5 mg QHS PO ; Start 04/17/18 at 21:00 Sevelamer Carbonate (Renvela) 0.8 gm WITH MEALS PO Last administered on 04/17/18at 17:47; Admin Dose 0.8 GM; Start 04/17/18 at 17:55 Tamsulosin HCl (Flomax) 0.4 mg HS PO ; Start 04/17/18 at 21:00 Allopurinol (Zyloprim) 100 mg DAILY PO ; Start 04/18/18 at 09:00 Escitalopram Oxalate (Lexapro) 10 mg DAILY PO ; Start 04/18/18 at 09:00 Levothyroxine Sodium (Synthroid) 100 mcg BEFORE BREAKFAST PO ; Start 04/18/18 at 07:00 Lisinopril (Zestril) 10 mg BID PO ; Start 04/17/18 at 21:00 Metoprolol Succinate (Toprol Xl) 100 mg DAILY PO ; Start 04/18/18 at 09:00 Quetiapine Fumarate (Seroquel) 25 mg QHS PO ; Start 04/17/18 at 21:00 Rivaroxaban (Xarelto) 15 mg DAILY PO ; Start 04/18/18 at 09:00; Status UNV Albuterol/ Ipratropium (Duoneb) 3 ml Q2H RESP THERAPY PRN HHN shortness of breath; Start 04/17/18 at 13:00 Fluticasone/ Vilanterol (Breo Ellipta 100-25 Mcg Inh) 1 inh DAILY INH ; Start 04/17/18 at 18:30 Furosemide (Lasix) 20 mg BID IV ; Start 04/17/18 at 21:00; Status UNV AMANDA HUERTAS MD Apr 17, 2018 18:13
[2018-04-17] MEDS: FLUTICASONE/VILANTEROL 100-25 INH SCH (18:30)
[2018-04-17] MEDS ORDERED: SODIUM CHLORIDE 0.9% 1L BAG IV PRN (18:30)
[2018-04-17] MEDS ORDERED: ALBUMIN HUMAN 25% 50 ML IV PRN (18:30)
[2018-04-17] MEDS: FUROSEMIDE 20 MG INJ IV SCH (18:52)
--- NOTE | 2018-04-17 19:00 | CONS ---
DATE OF ADMISSION: 04/17/2018 DATE OF CONSULTATION: 04/17/2018 REASON FOR CONSULTATION: Congestive heart failure exacerbation. REQUESTING PHYSICIAN: Dr. Barbara Piper from the hospitalist service. HISTORY OF PRESENT ILLNESS: Mr. Gaines is a 68-year-old male known to myself from prior hospital adm ission with history of chronic kidney disease, not on hemodialysis, hypertension, subdural hemorrhage , status post prior craniotomy in 2017, prior tobacco intake, permanent pacemaker, cardiomyopathy wit h decreased left ventricular ejection fraction 25% by echo on 04/07/2018, COPD, hypothyroidism who wright d left against medical advice the last time and now represents with complaints of shortness of breath most consistent with orthopnea. Upon arrival, temperature 97.9, blood pressure 190/88, pulse 104, r espiratory rate 18, satting 92%. The patient's labs showed white blood cell count of 9.8, hemoglobin 11.7, platelet count of 221. Sodium 139, potassium 6.0, creatinine 4.88, BUN of 37. Troponin negat mane. INR 1.53. Chest x-ray revealed moderate cardiomegaly with mild pulmonary vascular congestion. The patient's electrocardiogram revealed sinus tachycardia at a rate of 107, left axis deviation, le ft ventricular hypertrophy voltage criteria, anteroseptal Q's, lateral T-wave inversions. The patien t was subsequently admitted to the floor and, since admit to the floor, denies ongoing chest pain but has shortness breath and orthopnea. PAST MEDICAL HISTORY: As above in HPI. MEDICATIONS CURRENTLY IN HOSPITAL: 1. Norvasc 10 mg daily. 2. Calcitriol. 3. Allopurinol. 4. Lexapro. 5. Toprol-XL 100 mg daily. 6. Xarelto 50 mg daily. 7. Synthroid 100 mcg daily. 8. Lipitor 40 mg at bedtime. 9. Flomax 0.4 mg at bedtime. 10. Zestril 10 mg daily. 11. Seroquel. 12. Fluticasone. 13. PhosLo. 14. Renvela. 15. Lasix 20 mg IV daily. 16. DuoNeb. 17. Tylenol. 18. Zofran. ALLERGIES: NO KNOWN DRUG ALLERGIES. SOCIAL HISTORY: No current tobacco, ETOH or illicit drug use. FAMILY HISTORY: No history of sudden cardiac or early CAD. REVIEW OF SYSTEMS: As above in HPI. CONSTITUTIONAL: No fevers, chills. PULMONARY: Shortness of breath. CARDIOVASCULAR: Congestive heart failure. GASTROINTESTINAL: No vomiting. GENITOURINARY: No hematuria. MUSCULOSKELETAL: Degenerative joint disease. PSYCHIATRIC: The patient denies depression. NEUROLOGIC: No documented history of CVA. PHYSICAL EXAMINATION: VITAL SIGNS: Temperature of 97.7, blood pressure 155/72, pulse 70, respiratory rate 18, satting 97%. GENERAL: The patient is alert, awake, complaining of shortness of breath. NECK: JVP approximately 9 to 10 cm of water. CHEST: Bibasilar crackles. HEART: Regular rate and rhythm. Normal S1, S2. Laterally displaced PMI, I/ systolic murmur. ABDOMEN: Positive bowel sounds, soft. EXTREMITIES: Trace edema bilaterally, 1+ pulses bilateral posterior tibial. LABORATORY DATA: As above in HPI. No further labs for my review at this time. IMAGING STUDIES: As above in HPI. No further imaging studies for my review at this time. ELECTROCARDIOGRAM: As above in HPI. No further electrocardiograms for my review at this time. IMPRESSION: 1. Congestive heart failure exacerbation, systolic, acute on chronic. 2. Cardiomyopathy with decreased left ventricular ejection fraction approximately 25% to 30% by echo , 04/07/2018. 3. Shortness of breath secondary to #1. 4. Orthopnea secondary to #1. 5. Chronic kidney disease, not on hemodialysis. 6. Hyperkalemia. 7. Anemia. 8. Coagulopathy. RECOMMENDATIONS: 1. At this time, would maintain the patient on telemetry monitoring to follow rhythm and rates close ly. 2. Would complete rule out for myocardial infarction to ensure the patient's EKG abnormalities are c hronic in nature and not due to any recent acute coronary syndromes. 3. Continue the patient's baseline Toprol and lisinopril for treatment of cardiomyopathy as well as Norvasc for blood pressure control. 4. Continue the patient's Lasix diuresis at this time, consider increase but follow creatinine close ly. 5. Check TSH to assess the patient's current thyroid state. 6. Check fasting lipid panel for general risk stratification and adjust the patient's statin therapy as necessary. 7. Continue the patient's baseline psych meds. Further recommendations will be made as the patient progresses through his inpatient hospital clinica l course. Dictated By: GAEL BOOKRE/ILYA Conf#: [id number] DID#: [id number] CC: BARBARA PIPER MD;*EndCC*
[2018-04-17 20:00] VITALS: PULSE 97
[2018-04-17 20:07] VITALS: BP 164/77; PULSE 76; RESP 20
[2018-04-17] MEDS: DONEPEZIL 5 MG TAB PO SCH (20:50)
[2018-04-17] MEDS: TAMSULOSIN (SR) 0.4 MG CAP PO SCH (20:50)
[2018-04-17] MEDS: QUETIAPINE 25 MG TAB PO SCH (20:50)
[2018-04-17] MEDS: ATORVASTATIN 40 MG TAB PO SCH (20:50)
[2018-04-17] MEDS: LISINOPRIL 10 MG TAB PO SCH (20:51)
[2018-04-17] MEDS ORDERED: IBUPROFEN 600 MG TAB PO ONE (21:30)
[2018-04-17] MEDS ORDERED: APIXABAN 5 MG TABLET PO ONE (22:00)
[2018-04-18] VITALS (28 sets, daily range): BP systolic 119–160; BP diastolic 57–83; PULSE 65–85; RESP 16–20
[2018-04-18] MEDS: FUROSEMIDE 20 MG INJ IV SCH ×2 (05:27→17:34)
[2018-04-18] MEDS: LEVOTHYROXINE 100 MCG TAB PO SCH (06:53)
[2018-04-18] MEDS: SEVELAMER CARBONATE 0.8 GM PKT PO SCH ×3 (08:10→17:34)
[2018-04-18] MEDS: CALCITRIOL 0.25 MCG CAP PO SCH (08:10)
[2018-04-18] MEDS: CALCIUM ACETATE 667 MG CAP PO SCH ×3 (08:10→17:34)
[2018-04-18] MEDS: ESCITALOPRAM 10 MG TAB PO SCH (08:11)
[2018-04-18] MEDS: FLUTICASONE/VILANTEROL 100-25 INH SCH (08:11)
[2018-04-18] MEDS: ALLOPURINOL 100 MG TAB PO SCH (08:11)
[2018-04-18] MEDS: AMLODIPINE 10 MG TAB PO SCH (08:20)
[2018-04-18] MEDS: LISINOPRIL 10 MG TAB PO SCH ×2 (08:20→20:33)
[2018-04-18] MEDS: METOPROLOL (XL) 100 MG TAB PO SCH (08:20)
[2018-04-18] MEDS ORDERED: INFLUENZA VIRUS VACCINE 0.5 ML (DISPENSING) IM* ONE (09:00)
[2018-04-18] MEDS ORDERED: RIVAROXABAN 15 MG TABLET PO SCH (09:00)
--- NOTE | 2018-04-18 09:21 | CONS ---
Consult Date/Type/Reason Admit Date/Time Apr 17, 2018 at 12:24 Initial Consult Date 04/17/18 Requesting Provider: BARBARA ESQUIVEL Date/Time of Note DATE: 04/18/18 TIME: 09:18 Subjective NO acute events - pt feels a little better today - improved SOB. ROS: No fever, no chills, no nausea, no vomiting, no diarrhea/constipation No recent weight changes No chest pain, no PND, no orthopnea - improved SOB, NO CP. No dizziness, blurred vision No thirst, no heat or cold intolerance Objective Vitals Vital Signs Date Temp Pulse Resp B/P (MAP) Pulse Ox O2 O2 Flow FiO2 Time Delivery Rate 04/18/18 71 08:13 04/18/18 98.8 18 136/70 95 Room Air 07:32 (92) 04/17/18 21 14:36 04/17/18 2 10:41 Intake and Output 04/17/18 04/17/18 04/18/18 1414:59 22:59 06:59 IntakeIntake Total 640 ml 400 ml OutputOutput Total 200 ml 500 ml BalanceBalance 440 ml -100 ml Exam General: WN/WD/NAD, AOx 3 HEENT: Unicetric/atraumatic/EOMI (follow commands) NECK: JVD elevated, no thyromegaly Lymph: no lymphadenopathy HEART: regular with no S3, II/ systolic murmur at apex LUNGS: Coarse sounds - - mild wheezing ABD: soft, NT, ND, +BS : Intact Neuro: non focal SKIN: chronic changes EXT: trace edema Results/Medications Result Diagram: 04/18/18 0632 04/18/18 0632 Results 24 hrs Laboratory Tests Test 04/17/18 10:30 04/17/18 10:36 04/17/18 12:29 04/17/18 14:31 White Blood Count 9.8 # Red Blood Count 3.54 L Hemoglobin 11.7 L Hematocrit 36.3 L Mean Corpuscular 102.5 H Volume Mean Corpuscular 33.1 H Hemoglobin Mean Corpuscular 32.2 Hemoglobin Concent Red Cell 13.5 Distribution Width Platelet Count 221 # Mean Platelet Volume 9.5 Immature 0.500 H Granulocytes % Neutrophils % 72.3 Lymphocytes % 15.5 Monocytes % 4.2 Eosinophils % 7.0 Basophils % 0.5 Nucleated Red Blood 0.0 Cells % Immature 0.050 H Granulocytes # Neutrophils # 7.1 Lymphocytes # 1.5 Monocytes # 0.4 Eosinophils # 0.7 H Basophils # 0.1 Nucleated Red Blood 0.0 Cells # Prothrombin Time 18.5 #H Prothrombin Time 1.4 Ratio INR International 1.53 Normalized Ratio Activated 36.5 H Partial Thromboplast Time Sodium Level 139 Potassium Level 6.0 H Chloride Level 103 Carbon Dioxide Level 21 Anion Gap 15 H Blood Urea Nitrogen 37 H Creatinine 4.88 H Est Glomerular 12 L Filtrat Rate mL/min Glucose Level 137 Calcium Level 10.2 Troponin I 0.063 POC Venous Lactate 1.8 1.8 Lactic Acid Level 1.6 Test 04/17/18 18:42 04/18/18 00:54 04/18/18 06:32 Sodium Level 140 142 Potassium Level 4.8 4.9 Chloride Level 104 107 Carbon Dioxide Level 24 22 Anion Gap 12 13 Blood Urea Nitrogen 39 H 46 H Creatinine 4.92 H 5.42 H Est Glomerular 12 L 11 L Filtrat Rate mL/min Glucose Level 132 93 Calcium Level 9.7 9.5 Troponin I 0.070 0.077 White Blood Count 4.7 #L Red Blood Count 2.89 L Hemoglobin 9.6 L Hematocrit 29.5 L Mean Corpuscular 102.1 H Volume Mean Corpuscular 33.2 H Hemoglobin Mean Corpuscular 32.5 Hemoglobin Concent Red Cell 13.8 Distribution Width Platelet Count 170 # Mean Platelet Volume 9.6 Immature 0.400 Granulocytes % Neutrophils % 60.5 Lymphocytes % 22.2 Monocytes % 7.0 Eosinophils % 9.3 H Basophils % 0.6 Nucleated Red Blood 0.0 Cells % Immature 0.020 Granulocytes # Neutrophils # 2.9 Lymphocytes # 1.1 Monocytes # 0.3 Eosinophils # 0.4 Basophils # 0.0 Nucleated Red Blood 0.0 Cells # Hemoglobin A1c 4.8 Total Bilirubin 0.4 Direct Bilirubin 0.00 Indirect Bilirubin 0.4 Aspartate Amino 17 Transf (AST/SGOT) Alanine 17 Aminotransferase (AL T/SGPT) Alkaline Phosphatase 75 Total Protein 5.7 L Albumin 3.4 Globulin 2.30 Albumin/Globulin 1.47 Ratio Home Meds Reported Medications Quetiapine Fumarate* (Quetiapine Fumarate*) 25 Mg Tablet, 25 MG PO QHS, TAB 04/07/18 Escitalopram Oxalate* (Escitalopram Oxalate*) 10 Mg Tablet, 10 MG PO DAILY, #30 TAB 04/07/18 Donepezil* (Donepezil*) 5 Mg Tablet, 5 MG PO QHS, #30 TAB 04/07/18 Rivaroxaban* (Xarelto*) 15 Mg Tablet, 15 MG PO DAILY, TAB 04/07/18 Lisinopril* (Lisinopril*) 10 Mg Tablet, 10 MG PO BID, #30 TAB 04/07/18 Metoprolol Succinate* (Toprol XL*) 100 Mg Tab.sr.24h, 100 MG PO DAILY, #30 TAB 04/07/18 Ranitidine Hcl (Ranitidine Hcl) 150 Mg Capsule, 150 MG PO DAILY, #60 CAP 04/07/18 Atorvastatin* (Atorvastatin*) 40 Mg Tablet, 40 MG PO QHS, #30 TAB 04/07/18 Calcium Acetate* (Calcium Acetate*) 667 Mg Capsule, 667 MG PO WITH MEALS, #30 CAP 04/07/18 Levothyroxine Sodium* (Levothyroxine Sodium*) 25 Mcg Tablet, 25 MCG PO BEFORE BREAKFAST, #30 TAB 04/07/18 Allopurinol* (Allopurinol*) 100 Mg Tablet, 100 MG PO DAILY, TAB 04/07/18 Clopidogrel Bisulfate (Clopidogrel) 75 Mg Tablet, 75 MG PO DAILY, #30 TAB 04/07/18 Temazepam* (Temazepam*) 15 Mg Capsule, 15 MG PO HS PRN for INSOMNIA, CAP 04/07/18 Hydralazine Hcl* (Hydralazine Hcl*) 10 Mg Tablet, 10 MG PO Q6H, #60 TAB 12/24/16 Amlodipine Besylate* (Norvasc*) 10 Mg Tablet, 10 MG PO DAILY, TAB 12/24/16 Levothyroxine Sodium* (Synthroid*) 100 Mcg Tablet, 100 MCG PO BEFORE BREAKFAST, #30 TAB 12/24/16 Tamsulosin Hcl* (Tamsulosin Hcl*) 0.4 Mg Cap.er.24h, 0.4 MG PO HS, CAP 12/24/16 Calcitriol* (Calcitriol*) 0.5 Mcg Capsule, 0.5 MCG PO DAILY, CAP 12/24/16 Sevelamer Carbonate* (Renvela*) 800 Mg Tablet, 0.8 GM PO WITH MEALS, TAB 12/24/16 Medications Current Medications Ondansetron HCl (Zofran Inj) 4 mg ER BRIDGE PRN IV NAUSEA/VOMITING; Start 04/17/18 at 12:30; Stop 04/18/18 at 12:29 IV Flush (NS 3 ml) 3 ml PER PROTOCOL IV ; Start 04/17/18 at 13:00 Acetaminophen (Tylenol Tab) 650 mg Q6H PRN PO .PAIN 1-3 OR TEMP Last administered on 04/17/18 20:51; Admin Dose 650 MG; Start 04/17/18 at 13:00 Amlodipine Besylate (Norvasc) 10 mg DAILY PO ; Start 04/18/18 at 09:00 Atorvastatin Calcium (Lipitor) 40 mg QHS PO Last administered on 04/17/18 20:50; Admin Dose 40 MG; Start 04/17/18 at 21:00 Calcitriol (Rocaltrol) 0.5 mcg DAILY PO Last administered on 04/18/18 08:10; Admin Dose 0.5 MCG; Start 04/18/18 at 09:00 Calcium Acetate (Phoslo) 667 mg WITH MEALS PO Last administered on 04/18/18 08:10; Admin Dose 667 MG; Start 04/17/18 at 17:55 Donepezil HCl (Aricept) 5 mg QHS PO Last administered on 04/17/18 20:50; Admin Dose 5 MG; Start 04/17/18 at 21:00 Sevelamer Carbonate (Renvela) 0.8 gm WITH MEALS PO Last administered on 04/18/18 08:10; Admin Dose 0.8 GM; Start 04/17/18 at 17:55 Tamsulosin HCl (Flomax) 0.4 mg HS PO Last administered on 04/17/18 20:50; Admin Dose 0.4 MG; Start 04/17/18 at 21:00 Allopurinol (Zyloprim) 100 mg DAILY PO Last administered on 04/18/18 08:11; Admin Dose 100 MG; Start 04/18/18 at 09:00 Escitalopram Oxalate (Lexapro) 10 mg DAILY PO Last administered on 04/18/18 08:11; Admin Dose 10 MG; Start 04/18/18 at 09:00 Levothyroxine Sodium (Synthroid) 100 mcg BEFORE BREAKFAST PO Last administered on 04/18/18at 06:53; Admin Dose 100 MCG; Start 04/18/18 at 07:00 Lisinopril (Zestril) 10 mg BID PO Last administered on 04/17/18at 20:51; Admin Dose 10 MG; Start 04/17/18 at 21:00 Metoprolol Succinate (Toprol Xl) 100 mg DAILY PO ; Start 04/18/18 at 09:00 Quetiapine Fumarate (Seroquel) 25 mg QHS PO Last administered on 04/17/18at 20:50; Admin Dose 25 MG; Start 04/17/18 at 21:00 Albuterol/ Ipratropium (Duoneb) 3 ml Q2H RESP THERAPY PRN HHN shortness of breath; Start 04/17/18 at 13:00 Fluticasone/ Vilanterol (Breo Ellipta 100-25 Mcg Inh) 1 inh DAILY INH Last administered on 04/18/18at 08:11; Admin Dose 1 INH; Start 04/17/18 at 18:30 Furosemide (Lasix) 20 mg BID DIURETICS IV Last administered on 04/18/18at 05:27; Admin Dose 20 MG; Start 04/17/18 at 18:15 Albumin Human 50 ml @ 100 mls/hr WITH DIALYSIS PRN IV SBP < 90 DURING DIALYSIS; Start 04/17/18 at 18:30 Sodium Chloride (NS) -To prime the dialy... DIRECTED FOR HD PRN IV HD; Start 04/17/18 at 18:30 Miscellaneous Information (*Order Clarification Bulletin) MEDICATION REQUIRES CLARIFICATION: Q8H XX ; Start 04/17/18 at 19:00 Assessment/Plan Hospital Course (Demo Recall) 1. Congestive heart failure exacerbation, systolic, acute on chronic - now with ARF on CRF - better with gentle d iuresis. 2. Cardiomyopathy with decreased left ventricular ejection fraction approximately 25% to 30% by echo, 04/07/2018 - con't med optimization - concern re compliance s pt left AMA last time. 3. Shortness of breath secondary to #1- better now. 4. Orthopnea secondary to #1. 5. Chronic kidney disease, not on hemodialysis - renal team follows. 6. Hyperkalemia - better now. 7. Anemia- H?H stable - no bleeding. 8. Coagulopathy. ROSITA STAPLES MD Apr 18, 2018 09:21
--- NOTE | 2018-04-18 09:43 | CONS ---
Assessment/Plan Assessment/Plan Assessment/Plan (Daily) 1. acute hyperkalemia 2. ESRD on HD through AVF 3. acute on chronic CHF,systolic 4. H/o CAD s/p pacemaker placement 5. H/o HTN 6. H/o HL 7. h/o COPD Plan: s/p HD today 3 L removed, BP stable, afebrile, , K normal today, plan for HD tomorrow, pt follows at [facility] and his regular schedule for HD is MWF will follow up Consultation Date/Type/Reason Admit Date/Time Apr 17, 2018 at 12:24 Initial Consult Date 04/17/18 Type of Consult NEPHROLOGY Requesting Provider: BARBARA ESQUIVEL Date/Time of Note DATE: 04/18/18 TIME: 09:43 24 HR Interval Summary Free Text/Dictation s/p HD today 3 L removed, BP stable, afebrile, Exam/Review of Systems Exam Vitals Vital Signs Date Temp Pulse Resp B/P (MAP) Pulse Ox O2 O2 Flow FiO2 Time Delivery Rate 04/18/18 71 08:13 04/18/18 98.8 18 136/70 95 Room Air 07:32 (92) 04/17/18 21 14:36 04/17/18 2 10:41 Intake and Output 04/17/18 04/17/18 04/18/18 1515:00 23:00 07:00 IntakeIntake Total 640 ml 400 ml OutputOutput Total 200 ml 500 ml BalanceBalance 440 ml -100 ml Exam Constitutional: alert, awake Respiratory: congested cough, crackles/rales, diminished breath sounds Cardiovascular: regular rate and rhythm, nl pulses Gastrointestinal: soft, non-tender Musculoskeletal: swelling Extremities: normal pulses Neurological: SHOE WORK[employer] II-XII intact, nl mental status, nl speech, nl strength Results Result Diagram: 04/18/18 0632 04/18/18 0632 Results 24hrs Laboratory Tests Test 04/17/18 10:30 04/17/18 10:36 04/17/18 12:29 04/17/18 14:31 White Blood Count 9.8 # Red Blood Count 3.54 L Hemoglobin 11.7 L Hematocrit 36.3 L Mean Corpuscular 102.5 H Volume Mean Corpuscular 33.1 H Hemoglobin Mean Corpuscular 32.2 Hemoglobin Concent Red Cell 13.5 Distribution Width Platelet Count 221 # Mean Platelet Volume 9.5 Immature 0.500 H Granulocytes % Neutrophils % 72.3 Lymphocytes % 15.5 Monocytes % 4.2 Eosinophils % 7.0 Basophils % 0.5 Nucleated Red Blood 0.0 Cells % Immature 0.050 H Granulocytes # Neutrophils # 7.1 Lymphocytes # 1.5 Monocytes # 0.4 Eosinophils # 0.7 H Basophils # 0.1 Nucleated Red Blood 0.0 Cells # Prothrombin Time 18.5 #H Prothrombin Time 1.4 Ratio INR International 1.53 Normalized Ratio Activated 36.5 H Partial Thromboplast Time Sodium Level 139 Potassium Level 6.0 H Chloride Level 103 Carbon Dioxide Level 21 Anion Gap 15 H Blood Urea Nitrogen 37 H Creatinine 4.88 H Est Glomerular 12 L Filtrat Rate mL/min Glucose Level 137 Calcium Level 10.2 Troponin I 0.063 POC Venous Lactate 1.8 1.8 Lactic Acid Level 1.6 Test 04/17/18 18:42 04/18/18 00:54 04/18/18 06:32 Sodium Level 140 142 Potassium Level 4.8 4.9 Chloride Level 104 107 Carbon Dioxide Level 24 22 Anion Gap 12 13 Blood Urea Nitrogen 39 H 46 H Creatinine 4.92 H 5.42 H Est Glomerular 12 L 11 L Filtrat Rate mL/min Glucose Level 132 93 Calcium Level 9.7 9.5 Troponin I 0.070 0.077 White Blood Count 4.7 #L Red Blood Count 2.89 L Hemoglobin 9.6 L Hematocrit 29.5 L Mean Corpuscular 102.1 H Volume Mean Corpuscular 33.2 H Hemoglobin Mean Corpuscular 32.5 Hemoglobin Concent Red Cell 13.8 Distribution Width Platelet Count 170 # Mean Platelet Volume 9.6 Immature 0.400 Granulocytes % Neutrophils % 60.5 Lymphocytes % 22.2 Monocytes % 7.0 Eosinophils % 9.3 H Basophils % 0.6 Nucleated Red Blood 0.0 Cells % Immature 0.020 Granulocytes # Neutrophils # 2.9 Lymphocytes # 1.1 Monocytes # 0.3 Eosinophils # 0.4 Basophils # 0.0 Nucleated Red Blood 0.0 Cells # Hemoglobin A1c 4.8 Total Bilirubin 0.4 Direct Bilirubin 0.00 Indirect Bilirubin 0.4 Aspartate Amino 17 Transf (AST/SGOT) Alanine 17 Aminotransferase (AL T/SGPT) Alkaline Phosphatase 75 Total Protein 5.7 L Albumin 3.4 Globulin 2.30 Albumin/Globulin 1.47 Ratio Medications Medication Current Medications Ondansetron HCl (Zofran Inj) 4 mg ER BRIDGE PRN IV NAUSEA/VOMITING; Start 04/17/18 at 12:30; Stop 04/18/18 at 12:29 IV Flush (NS 3 ml) 3 ml PER PROTOCOL IV ; Start 04/17/18 at 13:00 Acetaminophen (Tylenol Tab) 650 mg Q6H PRN PO .PAIN 1-3 OR TEMP Last administered on 04/17/18 20:51; Admin Dose 650 MG; Start 04/17/18 at 13:00 Amlodipine Besylate (Norvasc) 10 mg DAILY PO ; Start 04/18/18 at 09:00 Atorvastatin Calcium (Lipitor) 40 mg QHS PO Last administered on 04/17/18 20:50; Admin Dose 40 MG; Start 04/17/18 at 21:00 Calcitriol (Rocaltrol) 0.5 mcg DAILY PO Last administered on 04/18/18 08:10; Admin Dose 0.5 MCG; Start 04/18/18 at 09:00 Calcium Acetate (Phoslo) 667 mg WITH MEALS PO Last administered on 04/18/18 08:10; Admin Dose 667 MG; Start 04/17/18 at 17:55 Donepezil HCl (Aricept) 5 mg QHS PO Last administered on 04/17/18 20:50; Admin Dose 5 MG; Start 04/17/18 at 21:00 Sevelamer Carbonate (Renvela) 0.8 gm WITH MEALS PO Last administered on 04/18/18 08:10; Admin Dose 0.8 GM; Start 04/17/18 at 17:55 Tamsulosin HCl (Flomax) 0.4 mg HS PO Last administered on 04/17/18 20:50; Admin Dose 0.4 MG; Start 04/17/18 at 21:00 Allopurinol (Zyloprim) 100 mg DAILY PO Last administered on 04/18/18 08:11; Admin Dose 100 MG; Start 04/18/18 at 09:00 Escitalopram Oxalate (Lexapro) 10 mg DAILY PO Last administered on 04/18/18 08:11; Admin Dose 10 MG; Start 04/18/18 at 09:00 Levothyroxine Sodium (Synthroid) 100 mcg BEFORE BREAKFAST PO Last administered on 04/18/18 06:53; Admin Dose 100 MCG; Start 04/18/18 at 07:00 Lisinopril (Zestril) 10 mg BID PO Last administered on 04/17/18at 20:51; Admin Dose 10 MG; Start 04/17/18 at 21:00 Metoprolol Succinate (Toprol Xl) 100 mg DAILY PO ; Start 04/18/18 at 09:00 Quetiapine Fumarate (Seroquel) 25 mg QHS PO Last administered on 04/17/18at 20:50; Admin Dose 25 MG; Start 04/17/18 at 21:00 Albuterol/ Ipratropium (Duoneb) 3 ml Q2H RESP THERAPY PRN HHN shortness of shraddha th; Start 04/17/18 at 13:00 Fluticasone/ Vilanterol (Breo Ellipta 100-25 Mcg Inh) 1 inh DAILY INH Last administered on 04/18/18at 08:11; Admin Dose 1 INH; Start 04/17/18 at 18:30 Furosemide (Lasix) 20 mg BID DIURETICS IV Last administered on 04/18/18at 05:27; Admin Dose 20 MG; Start 04/17/18 at 18:15 Albumin Human 50 ml @ 100 mls/hr WITH DIALYSIS PRN IV SBP < 90 DURING DIALYSIS; Start 04/17/18 at 18:30 Sodium Chloride (NS) -To prime the dialy... DIRECTED FOR HD PRN IV HD; Start 04/17/18 at 18:30 Miscellaneous Information (*Order Clarification Bulletin) MEDICATION REQUIRES CLARIFICATION: Q8H XX ; Start 04/17/18 at 19:00 AMANDA HUERTAS MD Apr 18, 2018 09:43
--- NOTE | 2018-04-18 15:26 | RADRPT ---
Vent Rate: 70 bpm RR Interval: 0 msec NV Interval: 132 msec QRS Duration: 98 msec QT Interval: 398 msec QTC Interval: 429 msec P-R-T [place]: 67 - 12 - -86 degrees Normal sinus rhythm Minimal voltage criteria for LVH, may be normal variant Anteroseptal infarct , age undetermined ST & T wave abnormality, consider inferior ischemia Abnormal ECG Electronically Signed By: Rick Nichols
--- NOTE | 2018-04-18 15:48 | PN ---
Date/Time of Note Date/Time of Note DATE: 04/18/18 TIME: 15:34 Objective Vitals Vital Signs Date Temp Pulse Resp B/P (MAP) Pulse Ox O2 O2 Flow FiO2 Time Delivery Rate 04/18/18 98.4 71 20 155/73 96 Room Air 15:08 (100) 04/17/18 21 14:36 04/17/18 2 10:41 Intake and Output 04/17/18 04/17/18 04/18/18 1515:00 23:00 07:00 IntakeIntake Total 640 ml 400 ml OutputOutput Total 200 ml 500 ml BalanceBalance 440 ml -100 ml Results Result Diagram: 04/18/18 0632 04/18/18 0632 Medications Medications Current Medications IV Flush (NS 3 ml) 3 ml PER PROTOCOL IV ; Start 04/17/18 at 13:00 Acetaminophen (Tylenol Tab) 650 mg Q6H PRN PO .PAIN 1-3 OR TEMP Last administered on 04/17/18at 20:51; Admin Dose 650 MG; Start 04/17/18 at 13:00 Amlodipine Besylate (Norvasc) 10 mg DAILY PO ; Start 04/18/18 at 09:00 Atorvastatin Calcium (Lipitor) 40 mg QHS PO Last administered on 04/17/18 20:50; Admin Dose 40 MG; Start 04/17/18 at 21:00 Calcitriol (Rocaltrol) 0.5 mcg DAILY PO Last administered on 04/18/18 08:10; Admin Dose 0.5 MCG; Start 04/18/18 at 09:00 Calcium Acetate (Phoslo) 667 mg WITH MEALS PO Last administered on 04/18/18 08:10; Admin Dose 667 MG; Start 04/17/18 at 17:55 Donepezil HCl (Aricept) 5 mg QHS PO Last administered on 04/17/18 20:50; Admin Dose 5 MG; Start 04/17/18 at 21:00 Sevelamer Carbonate (Renvela) 0.8 gm WITH MEALS PO Last administered on 04/18/18 08:10; Admin Dose 0.8 GM; Start 04/17/18 at 17:55 Tamsulosin HCl (Flomax) 0.4 mg HS PO Last administered on 04/17/18 20:50; Admin Dose 0.4 MG; Start 04/17/18 at 21:00 Allopurinol (Zyloprim) 100 mg DAILY PO Last administered on 04/18/18 08:11; Admin Dose 100 MG; Start 04/18/18 at 09:00 Escitalopram Oxalate (Lexapro) 10 mg DAILY PO Last administered on 04/18/18 08:11; Admin Dose 10 MG; Start 04/18/18 at 09:00 Levothyroxine Sodium (Synthroid) 100 mcg BEFORE BREAKFAST PO Last administered on 04/18/18 06:53; Admin Dose 100 MCG; Start 04/18/18 at 07:00 Lisinopril (Zestril) 10 mg BID PO Last administered on 04/17/18 20:51; Admin Dose 10 MG; Start 04/17/18 at 21:00 Metoprolol Succinate (Toprol Xl) 100 mg DAILY PO ; Start 04/18/18 at 09:00 Quetiapine Fumarate (Seroquel) 25 mg QHS PO Last administered on 04/17/18at 20:50; Admin Dose 25 MG; Start 04/17/18 at 21:00 Albuterol/ Ipratropium (Duoneb) 3 ml Q2H RESP THERAPY PRN HHN shortness of breath; Start 04/17/18 at 13:00 Fluticasone/ Vilanterol (Breo Ellipta 100-25 Mcg Inh) 1 inh DAILY INH Last administered on 04/18/18 08:11; Admin Dose 1 INH; Start 04/17/18 at 18:30 Furosemide (Lasix) 20 mg BID DIURETICS IV Last administered on 04/18/18 05:27; Admin Dose 20 MG; Start 04/17/18 at 18:15 Albumin Human 50 ml @ 100 mls/hr WITH DIALYSIS PRN IV SBP < 90 DURING DIALYSIS; Start 04/17/18 at 18:30 Sodium Chloride (NS) -To prime the dialy... DIRECTED FOR HD PRN IV HD; Start 04/17/18 at 18:30 Acetaminophen/ Hydrocodone Bitart ([place] (5/325)) 1 tab Q4H PRN PO P4-10; Start 04/18/18 at 15:00 VTE Prophylaxis Risk score (from Ns)>0 risk: 4 SCD applied (from Ns): Yes Lines/Catheters IV Catheter Type: Maguire in Place: No Assessment/Plan Hospital Course Subjective Patient doing well Objective Physical exam General: Patient is laying in bed and answers questions appropriately Mentation: Patient is alert and oriented , Head: Normocephalic atraumatic Eyes: EOMI, pupils reactive to light Neck: Supple, nontender, midline Respiratory: Clear to auscultation bilaterally Cardiovascular: regular rate, no obvious murmurs Gastrointestinal: non-tender to palpation, bowel sounds heard. Neurological: Moves all extremities spontaneously Skin: No new skin lesions Assessment and plan Shortness of breath -Transient, resolving -DuoNeb -Likely combined with COPD with CHF as chest x-ray does show vascular congestion -Nephrology to diuresis and dialyze -Trend troponins Acute on chronic congestive heart failure, systolic, EF of 25% -Cardiology reconsulted, Dr. Nichols -Since patient eloped last time, medications were not optimized, cardiology recommendations appreciated for optimization of heart medications before discharge Coronary artery disease Cardiology recommendations appreciated Mild dementia, depression, sleep disorder -Continue previous medication of Lexapro and Seroquel End-stage renal disease -Nephrology on board to dialyze Hypertension -Continue home meds Anemia -Chronic, continue home meds -Mild drop compared to yesterday, however not necessarily out of limits when looking at previous admissions Hypothyroidism -Continue home meds questionable History of A. 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 -Based on discussion with cardiology will start patient on baby aspirin for now COPD -Start Breo -DuoNeb as needed Disposition -We will confirm with case management the patient has no barriers to discharge as last admission, assisting facility did not want to take him back until he got a dementia workup however after he eloped they let him walking on his own reconnaissance -Cardiology consultation pending -Optimize medications and dialysis per nephrology, discharge when medications optimized. BARBARA ESQUIVEL Apr 18, 2018 15:44
[2018-04-18] MEDS: QUETIAPINE 25 MG TAB PO SCH (20:32)
[2018-04-18] MEDS: TAMSULOSIN (SR) 0.4 MG CAP PO SCH (20:33)
[2018-04-18] MEDS: ATORVASTATIN 40 MG TAB PO SCH (20:33)
[2018-04-18] MEDS: DONEPEZIL 5 MG TAB PO SCH (20:33)
[2018-04-18] MEDS: HYDROCODONE/APAP (5/325) TAB PO PRN (22:22)
[2018-04-18] MEDS ORDERED: APIXABAN 5 MG TABLET PO ONE (23:30)
[2018-04-19] VITALS (26 sets, daily range): BP systolic 136–177; BP diastolic 64–91; PULSE 60–85; RESP 16–18
[2018-04-19] MEDS: FUROSEMIDE 20 MG INJ IV SCH ×2 (05:49→17:38)
[2018-04-19] MEDS: LEVOTHYROXINE 100 MCG TAB PO SCH (06:56)
[2018-04-19] MEDS: CALCITRIOL 0.25 MCG CAP PO SCH (08:14)
[2018-04-19] MEDS: SEVELAMER CARBONATE 0.8 GM PKT PO SCH ×3 (08:14→17:37)
[2018-04-19] MEDS: CALCIUM ACETATE 667 MG CAP PO SCH ×3 (08:15→17:38)
[2018-04-19] MEDS: ALLOPURINOL 100 MG TAB PO SCH (08:15)
[2018-04-19] MEDS: ESCITALOPRAM 10 MG TAB PO SCH (08:15)
[2018-04-19] MEDS: FLUTICASONE/VILANTEROL 100-25 INH SCH (08:15)
[2018-04-19] MEDS: AMLODIPINE 10 MG TAB PO SCH (08:16)
[2018-04-19] MEDS: METOPROLOL (XL) 100 MG TAB PO SCH (08:16)
[2018-04-19] MEDS: LISINOPRIL 10 MG TAB PO SCH ×2 (08:16→20:25)
[2018-04-19] MEDS ORDERED: ASPIRIN 81 MG TAB PO SCH (09:00)
--- NOTE | 2018-04-19 12:22 | CONS ---
Assessment/Plan Assessment/Plan Assessment/Plan (Daily) 1. acute hyperkalemia 2. ESRD on HD through AVF 3. acute on chronic CHF,systolic 4. H/o CAD s/p pacemaker placement 5. H/o HTN 6. H/o HL 7. h/o COPD Plan: s/p HD today 1.8 L removed, BP stable, afebrile, , K normal today, Next HD will be on Tuesday pt follows at [facility] and his regular schedule for HD is MWF will follow up Consultation Date/Type/Reason Admit Date/Time Apr 17, 2018 at 12:24 Initial Consult Date 04/17/18 Type of Consult NEPHROLOGY Requesting Provider: BARBARA ESQUIVEL Date/Time of Note DATE: 04/19/18 TIME: 12:22 24 HR Interval Summary Free Text/Dictation s/p HD today 1.8 L removed, BP stable, afebrile Exam/Review of Systems Exam Vitals Vital Signs Date Temp Pulse Resp B/P (MAP) Pulse Ox O2 O2 Flow FiO2 Time Delivery Rate 04/19/18 97.8 63 18 165/77 96 Room Air 11:24 (106) 04/17/18 21 14:36 04/17/18 2 10:41 Intake and Output 04/18/18 04/18/18 04/19/18 1515:00 23:00 07:00 IntakeIntake Total 350 ml 300 ml OutputOutput Total 3400 ml 400 ml 100 ml BalanceBalance -3400 ml -50 ml 200 ml Exam Constitutional: alert, awake Respiratory: congested cough, crackles/rales, diminished breath sounds Cardiovascular: regular rate and rhythm, nl pulses Gastrointestinal: soft, non-tender Musculoskeletal: swelling Extremities: normal pulses Neurological: DEVOPS DEVELOPER II-XII intact, nl mental status, nl speech, nl strength Results Result Diagram: 04/19/18 0609 04/19/18 0610 Results 24hrs Laboratory Tests Test 04/19/18 06:09 04/19/18 06:10 White Blood Count 5.0 Red Blood Count 3.02 L Hemoglobin 10.0 L Hematocrit 30.3 L Mean Corpuscular Volume 100.3 Mean Corpuscular Hemoglobin 33.1 H Mean Corpuscular Hemoglobin Concent 33.0 Red Cell Distribution Width 13.6 Platelet Count 183 Mean Platelet Volume 9.8 Immature Granulocytes % 0.200 Neutrophils % 54.1 Lymphocytes % 25.9 Monocytes % 7.5 Eosinophils % 11.7 H Basophils % 0.6 Nucleated Red Blood Cells % 0.0 Immature Granulocytes # 0.010 Neutrophils # 2.7 Lymphocytes # 1.3 Monocytes # 0.4 Eosinophils # 0.6 H Basophils # 0.0 Nucleated Red Blood Cells # 0.0 Sodium Level 141 Potassium Level 4.6 Chloride Level 104 Carbon Dioxide Level 28 Anion Gap 9 Blood Urea Nitrogen 37 H Creatinine 4.73 H Est Glomerular Filtrat Rate mL/min 12 L Glucose Level 84 Calcium Level 9.4 Phosphorus Level 3.0 Magnesium Level 1.9 Medications Medication Current Medications IV Flush (NS 3 ml) 3 ml PER PROTOCOL IV ; Start 04/17/18 at 13:00 Acetaminophen (Tylenol Tab) 650 mg Q6H PRN PO .PAIN 1-3 OR TEMP Last ad ministered on 04/17/18at 20:51; Admin Dose 650 MG; Start 04/17/18 at 13:00 Amlodipine Besylate (Norvasc) 10 mg DAILY PO ; Start 04/18/18 at 09:00 Atorvastatin Calcium (Lipitor) 40 mg QHS PO Last administered on 04/18/18 20:33; Admin Dose 40 MG; Start 04/17/18 at 21:00 Calcitriol (Rocaltrol) 0.5 mcg DAILY PO Last administered on 04/19/18 08:14; Admin Dose 0.5 MCG; Start 04/18/18 at 09:00 Calcium Acetate (Phoslo) 667 mg WITH MEALS PO Last administered on 04/19/18 12:14; Admin Dose 667 MG; Start 04/17/18 at 17:55 Donepezil HCl (Aricept) 5 mg QHS PO Last administered on 04/18/18 20:33; Admin Dose 5 MG; Start 04/17/18 at 21:00 Sevelamer Carbonate (Renvela) 0.8 gm WITH MEALS PO Last administered on 04/19/18 12:14; Admin Dose 0.8 GM; Start 04/17/18 at 17:55 Tamsulosin HCl (Flomax) 0.4 mg HS PO Last administered on 04/18/18 20:33; Admin Dose 0.4 MG; Start 04/17/18 at 21:00 Allopurinol (Zyloprim) 100 mg DAILY PO Last administered on 04/19/18 08:15; Admin Dose 100 MG; Start 04/18/18 at 09:00 Escitalopram Oxalate (Lexapro) 10 mg DAILY PO Last administered on 04/19/18 08:15; Admin Dose 10 MG; Start 04/18/18 at 09:00 Levothyroxine Sodium (Synthroid) 100 mcg BEFORE BREAKFAST PO Last administered on 04/19/18 06:56; Admin Dose 100 MCG; Start 04/18/18 at 07:00 Lisinopril (Zestril) 10 mg BID PO Last administered on 04/18/18 20:33; Admin Dose 10 MG; Start 04/17/18 at 21:00 Metoprolol Succinate (Toprol Xl) 100 mg DAILY PO ; Start 04/18/18 at 09:00 Quetiapine Fumarate (Seroquel) 25 mg QHS PO Last administered on 04/18/18 20:32; Admin Dose 25 MG; Start 04/17/18 at 21:00 Albuterol/ Ipratropium (Duoneb) 3 ml Q2H RESP THERAPY PRN HHN shortness of breath; Start 04/17/18 at 13:00 Fluticasone/ Vilanterol (Breo Ellipta 100-25 Mcg Inh) 1 inh DAILY INH Last administered on 04/19/18 08:15; Admin Dose 1 INH; Start 04/17/18 at 18:30 Furosemide (Lasix) 20 mg BID DIURETICS IV Last administered on 04/19/18 05:49; Admin Dose 20 MG; Start 04/17/18 at 18:15 Albumin Human 50 ml @ 100 mls/hr WITH DIALYSIS PRN IV SBP < 90 DURING DIALYSIS; Start 04/17/18 at 18:30 Sodium Chloride (NS) -To prime the dialy... DIRECTED FOR HD PRN IV HD; Start 04/17/18 at 18:30 Acetaminophen/ Hydrocodone Bitart ([place] (5/325)) 1 tab Q4H PRN PO P4-10 Last administered on 04/18/18 22:22; Admin Dose 1 TAB; Start 04/18/18 at 15:00 AMANDA HUERTAS MD Apr 19, 2018 12:22
--- NOTE | 2018-04-19 14:03 | CONS ---
Assessment/Plan Assessment/Plan Hospital Course (Demo Recall) IMPRESSION: 1. Congestive heart failure exacerbation, systolic, acute on chronic. 2. Cardiomyopathy with decreased left ventricular ejection fraction approximately 25% to 30% by echo, 04/07/2018. 3. Shortness of breath secondary to #1. 4. Orthopnea secondary to #1. 5. Chronic kidney disease, not on hemodialysis. 6. Hyperkalemia. 7. Anemia. 8. Coagulopathy. 9. HTN-uncontrolled 10. H/O PAF- in SR currently. Discussed with hospitalist Recc: -Tele -Continue toprol XL -Continue zestril -Continue Norvasc -F/U BP after receivng all medications -Continue Lasix with HD ongoing now for volume removal -to be resumed on eliquis for PAf, discussed with treating hospitalist Consultation Date/Type/Reason Admit Date/Time Apr 17, 2018 at 12:24 Initial Consult Date 04/17/18 Type of Consult Cardiology Reason for Consultation CHF Requesting Provider: BARBARA ESQUIVEL Date/Time of Note DATE: 04/19/18 TIME: 13:55 Exam/Review of Systems Vital Signs Vitals Vital Signs Date Temp Pulse Resp B/P (MAP) Pulse Ox O2 O2 Flow FiO2 Time Delivery Rate 04/19/18 63 13:22 04/19/18 16 165/77 96 Room Air 12:29 (106) 04/19/18 97.8 11:24 04/17/18 21 14:36 04/17/18 2 10:41 Intake and Output 04/18/18 04/18/18 04/19/18 1515:00 23:00 07:00 IntakeIntake Total 350 ml 300 ml OutputOutput Total 3400 ml 400 ml 100 ml BalanceBalance -3400 ml -50 ml 200 ml Exam Exam Review of Systems: CONSTITUTIONAL: No fevers, chills. PULMONARY: No sob CARDIOVASCULAR: No chest pain/palpitations GASTROINTESTINAL: No nausea/vomiting. GENITOURINARY: No hematuria/dysuria. MUSCULOSKELETAL: No myagias/arthalgias. PSYCHIATRIC: The patient denies depression. NEUROLOGIC: No weakness Constitutional: alert Psych: no complaints Head: normocephalic ENMT: mucosa pink and moist Neck: supple, jvd Respiratory: diminished breath sounds Cardiovascular: regular rate and rhythm Gastrointestinal: soft, non-tender Musculoskeletal: muscle tone (normal) Extremities: edema (none) Labs Result Diagram: 04/19/18 0609 04/19/18 0610 Results 24hrs Laboratory Tests Test 04/19/18 06:09 04/19/18 06:10 White Blood Count 5.0 Red Blood Count 3.02 L Hemoglobin 10.0 L Hematocrit 30.3 L Mean Corpuscular Volume 100.3 Mean Corpuscular Hemoglobin 33.1 H Mean Corpuscular Hemoglobin Concent 33.0 Red Cell Distribution Width 13.6 Platelet Count 183 Mean Platelet Volume 9.8 Immature Granulocytes % 0.200 Neutrophils % 54.1 Lymphocytes % 25.9 Monocytes % 7.5 Eosinophils % 11.7 H Basophils % 0.6 Nucleated Red Blood Cells % 0.0 Immature Granulocytes # 0.010 Neutrophils # 2.7 Lymphocytes # 1.3 Monocytes # 0.4 Eosinophils # 0.6 H Basophils # 0.0 Nucleated Red Blood Cells # 0.0 Sodium Level 141 Potassium Level 4.6 Chloride Level 104 Carbon Dioxide Level 28 Anion Gap 9 Blood Urea Nitrogen 37 H Creatinine 4.73 H Est Glomerular Filtrat Rate mL/min 12 L Glucose Level 84 Calcium Level 9.4 Phosphorus Level 3.0 Magnesium Level 1.9 Medications Medications Current Medications IV Flush (NS 3 ml) 3 ml PER PROTOCOL IV ; Start 04/17/18 at 13:00 Acetaminophen (Tylenol Tab) 650 mg Q6H PRN PO .PAIN 1-3 OR TEMP Last administered on 04/17/18at 20:51; Admin Dose 650 MG; Start 04/17/18 at 13:00 Amlodipine Besylate (Norvasc) 10 mg DAILY PO ; Start 04/18/18 at 09:00 Atorvastatin Calcium (Lipitor) 40 mg QHS PO Last administered on 04/18/18at 20:33; Admin Dose 40 MG; Start 04/17/18 at 21:00 Calcitriol (Rocaltrol) 0.5 mcg DAILY PO Last administered on 04/19/18at 08:14; Admin Dose 0.5 MCG; Start 04/18/18 at 09:00 Calcium Acetate (Phoslo) 667 mg WITH MEALS PO Last administered on 04/19/18 12:14; Admin Dose 667 MG; Start 04/17/18 at 17:55 Donepezil HCl (Aricept) 5 mg QHS PO Last administered on 04/18/18 20:33; Admin Dose 5 MG; Start 04/17/18 at 21:00 Sevelamer Carbonate (Renvela) 0.8 gm WITH MEALS PO Last administered on 04/19/18 12:14; Admin Dose 0.8 GM; Start 04/17/18 at 17:55 Tamsulosin HCl (Flomax) 0.4 mg HS PO Last administered on 04/18/18 20:33; Admin Dose 0.4 MG; Start 04/17/18 at 21:00 Allopurinol (Zyloprim) 100 mg DAILY PO Last administered on 04/19/18 08:15; Admin Dose 100 MG; Start 04/18/18 at 09:00 Escitalopram Oxalate (Lexapro) 10 mg DAILY PO Last administered on 04/19/18 08:15; Admin Dose 10 MG; Start 04/18/18 at 09:00 Levothyroxine Sodium (Synthroid) 100 mcg BEFORE BREAKFAST PO Last administered on 04/19/18 06:56; Admin Dose 100 MCG; Start 04/18/18 at 07:00 Lisinopril (Zestril) 10 mg BID PO Last administered on 04/18/18 20:33; Admin Dose 10 MG; Start 04/17/18 at 21:00 Metoprolol Succinate (Toprol Xl) 100 mg DAILY PO ; Start 04/18/18 at 09:00 Quetiapine Fumarate (Seroquel) 25 mg QHS PO Last administered on 04/18/18 20:32; Admin Dose 25 MG; Start 04/17/18 at 21:00 Albuterol/ Ipratropium (Duoneb) 3 ml Q2H RESP THERAPY PRN HHN shortness of breath; Start 04/17/18 at 13:00 Fluticasone/ Vilanterol (Breo Ellipta 100-25 Mcg Inh) 1 inh DAILY INH Last administered on 04/19/18 08:15; Admin Dose 1 INH; Start 04/17/18 at 18:30 Furosemide (Lasix) 20 mg BID DIURETICS IV Last administered on 04/19/18 05:49; Admin Dose 20 MG; Start 04/17/18 at 18:15 Albumin Human 50 ml @ 100 mls/hr WITH DIALYSIS PRN IV SBP < 90 DURING DIALYSIS; Start 04/17/18 at 18:30 Sodium Chloride (NS) -To prime the dialy... DIRECTED FOR HD PRN IV HD; Start 04/17/18 at 18:30 Acetaminophen/ Hydrocodone Bitart ([place] (5/325)) 1 tab Q4H PRN PO P4-10 Last administered on 04/18/18at 22:22; Admin Dose 1 TAB; Start 04/18/18 at 15:00 GAEL HUMPHREY Apr 19, 2018 14:03
--- NOTE | 2018-04-19 14:49 | PN ---
Date/Time of Note Date/Time of Note DATE: 04/19/18 TIME: 14:47 Objective Vitals Vital Signs Date Temp Pulse Resp B/P (MAP) Pulse Ox O2 O2 Flow FiO2 Time Delivery Rate 04/19/18 66 14:00 04/19/18 16 165/77 96 Room Air 12:29 (106) 04/19/18 97.8 11:24 04/17/18 21 14:36 04/17/18 2 10:41 Intake and Output 04/18/18 04/18/18 04/19/18 1515:00 23:00 07:00 IntakeIntake Total 350 ml 300 ml OutputOutput Total 3400 ml 400 ml 100 ml BalanceBalance -3400 ml -50 ml 200 ml Results Result Diagram: 04/19/18 0609 04/19/18 0610 Medications Medications Current Medications IV Flush (NS 3 ml) 3 ml PER PROTOCOL IV ; Start 04/17/18 at 13:00 Acetaminophen (Tylenol Tab) 650 mg Q6H PRN PO .PAIN 1-3 OR TEMP Last administered on 04/17/18at 20:51; Admin Dose 650 MG; Start 04/17/18 at 13:00 Amlodipine Besylate (Norvasc) 10 mg DAILY PO ; Start 04/18/18 at 09:00 Atorvastatin Calcium (Lipitor) 40 mg QHS PO Last administered on 04/18/18 20:33; Admin Dose 40 MG; Start 04/17/18 at 21:00 Calcitriol (Rocaltrol) 0.5 mcg DAILY PO Last administered on 04/19/18 08:14; Admin Dose 0.5 MCG; Start 04/18/18 at 09:00 Calcium Acetate (Phoslo) 667 mg WITH MEALS PO Last administered on 04/19/18 12:14; Admin Dose 667 MG; Start 04/17/18 at 17:55 Donepezil HCl (Aricept) 5 mg QHS PO Last administered on 04/18/18 20:33; Admin Dose 5 MG; Start 04/17/18 at 21:00 Sevelamer Carbonate (Renvela) 0.8 gm WITH MEALS PO Last administered on 04/19/18 12:14; Admin Dose 0.8 GM; Start 04/17/18 at 17:55 Tamsulosin HCl (Flomax) 0.4 mg HS PO Last administered on 04/18/18 20:33; Admin Dose 0.4 MG; Start 04/17/18 at 21:00 Allopurinol (Zyloprim) 100 mg DAILY PO Last administered on 04/19/18 08:15; Admin Dose 100 MG; Start 04/18/18 at 09:00 Escitalopram Oxalate (Lexapro) 10 mg DAILY PO Last administered on 04/19/18 08:15; Admin Dose 10 MG; Start 04/18/18 at 09:00 Levothyroxine Sodium (Synthroid) 100 mcg BEFORE BREAKFAST PO Last administered on 04/19/18 06:56; Admin Dose 100 MCG; Start 04/18/18 at 07:00 Lisinopril (Zestril) 10 mg BID PO Last administered on 04/18/18 20:33; Admin Dose 10 MG; Start 04/17/18 at 21:00 Metoprolol Succinate (Toprol Xl) 100 mg DAILY PO ; Start 04/18/18 at 09:00 Quetiapine Fumarate (Seroquel) 25 mg QHS PO Last administered on 04/18/18 20:32; Admin Dose 25 MG; Start 04/17/18 at 21:00 Albuterol/ Ipratropium (Duoneb) 3 ml Q2H RESP THERAPY PRN HHN shortness of breath; Start 04/17/18 at 13:00 Fluticasone/ Vilanterol (Breo Ellipta 100-25 Mcg Inh) 1 inh DAILY INH Last administered on 04/19/18 08:15; Admin Dose 1 INH; Start 04/17/18 at 18:30 Furosemide (Lasix) 20 mg BID DIURETICS IV Last administered on 04/19/18 05:49; Admin Dose 20 MG; Start 04/17/18 at 18:15 Albumin Human 50 ml @ 100 mls/hr WITH DIALYSIS PRN IV SBP < 90 DURING DIALYSIS; Start 04/17/18 at 18:30 Sodium Chloride (NS) -To prime the dialy... DIRECTED FOR HD PRN IV HD; Start 04/17/18 at 18:30 Acetaminophen/ Hydrocodone Bitart ([place] (5/325)) 1 tab Q4H PRN PO P4-10 Last administered on 04/18/18 22:22; Admin Dose 1 TAB; Start 04/18/18 at 15:00 Apixaban (Eliquis) 2.5 mg BID PO ; Start 04/20/18 at 09:00 VTE Prophylaxis Risk score (from Ns)>0 risk: 2 SCD applied (from Ns): Yes Lines/Catheters IV Catheter Type: Maguire in Place: No Assessment/Plan Hospital Course Subjective Patient doing well Objective Physical exam General: Patient is laying in bed and answers questions appropriately Mentation: Patient is alert and oriented , Head: Normocephalic atraumatic Eyes: EOMI, pupils reactive to light Neck: Supple, nontender, midline Respiratory: Clear to auscultation bilaterally Cardiovascular: regular rate, no obvious murmurs Gastrointestinal: non-tender to palpation, bowel sounds heard. Neurological: Moves all extremities spontaneously Skin: No new skin lesions Assessment and plan Shortness of breath -Transient, resolving -DuoNeb -Likely combined with COPD with CHF as chest x-ray does show vascular congestion -Nephrology to diuresis and dialyze -troponin neg Acute on chronic congestive heart failure, systolic, EF of 25% -Cardiology reconsulted, Dr. Nichols -Since patient eloped last time, medications were not optimized, cardiology recommendations appreciated for optimization of heart medications before discharge Coronary artery disease Cardiology recommendations appreciated Mild dementia, depression, sleep disorder -Continue previous medication of Lexapro and Seroquel End-stage renal disease -Nephrology on board to dialyze Hypertension -Continue home meds Anemia -Chronic, continue home meds -Mild drop compared to yesterday, however not necessarily out of limits when looking at previous admissions Hypothyroidism -Continue home meds Atrial fibrillation -Confirmed with patient and with facility that patient does indeed have a history of A. fib and was on Xarelto at the assisted living facility. After speaking with nephrology, it was recommended that Eliquis, low-dose for hemodialysis patients. also discussed with cardiology, cardiology also on board for low-dose Eliquis for A. fib COPD -Start Breo -DuoNeb as needed Disposition -Psych eval pending as patient has dementia, assisted living facility requests as it will help with eventual placement of patient in a actual home. -Optimize medications and dialysis per nephrology, discharge when medications optimized. BARBARA ESQUIVEL Apr 19, 2018 14:49
--- NOTE | 2018-04-19 15:50 | PSY ---
Date/Time of Note Date/Time of Note DATE: 04/19/18 TIME: 15:48 Psychiatric Subjective Eval Consent Pt consented to telemedicine: No Subjective Evaluation Patient location: inpatient Chief Complaint: COPD Exacerbation started today History of present illness Patient is a male with a past medical history of congestive heart failure with pacemaker, end-stage renal disease on hemodialysis, coronary artery disease, hypothyroidism, and COPD who is currently on telemetry unit. On a [id number] evaluation patient is alert oriented. He reports psych history, but denies suicidal ideation denies any homicidal ideation . He reports feeling of hopelessness and helplessness. Patient is forgetful but states he is only forgetful when his dialysis has not been done and he contracted for safety. Mini-Mental status exam done and patient has 20/30, which signifies very some cognitive impairments also which might be due to the fact that he has not been dialyzed. Past psychiatric history Denies Hospitalization: other Medical history Problems Medical Problems: (1) Altered level of consciousness Status: Acute (2) Altered mental status Status: Acute (3) Anemia Status: Acute (4) Encephalopathy acute Status: Acute (5) Fluid overload Status: Acute (6) Hyperkalemia Status: Acute (7) Leukopenia Status: Acute (8) PNA (pneumonia) Status: Acute (9) Respiratory failure Status: Acute (10) Septic shock Status: Acute (11) Shortness of breath Status: Acute (12) Subdural hemorrhage Status: Acute (13) Thrombocytopenia Status: Acute (14) Thrombocytopenia Status: Acute Allergies: Coded Allergies: No Known Allergy (Unverified , 12/24/16) Substance Abuse Substance abuse history: No Prior substance abuse treatmen: No Social History Marital status: other DPA/Conservatorship: No Psychiatric Objective Eval Review of Systems: Review of Systems: Not Applicable Physical Examination: Physical Examination: Not Applicable Appetite: Adequate Energy: Decreased Interest: Decreased Mental Status Examination: Appearance: Groomed Eye Contact: Good Psychomotor Activity: Slow Behavior: Cooperative Speech: Clear AFFECT: Flat Though Process: Linear Thought Content: Normal Orientation: x4 Cognition: Alert Insight: Mild Judgement: Mild Attention Span: Distractible Laboratory Results Laboratory Tests Test 04/17/18 18:42 04/18/18 00:54 04/18/18 06:32 04/19/18 06:09 Sodium Level 140 mmol/L 142 mmol/L Potassium Level 4.8 mmol/L 4.9 mmol/L Chloride Level 104 mmol/L 107 mmol/L Carbon Dioxide 24 mmol/L 22 mmol/L Level Anion Gap 12 13 Blood Urea 39 mg/dl 46 mg/dl Nitrogen Creatinine 4.92 mg/dl 5.42 mg/dl Est Glomerular 12 mL/min 11 mL/min Filtrat Rate mL/min Glucose Level 132 mg/dl 93 mg/dl Calcium Level 9.7 mg/dl 9.5 mg/dl Troponin I 0.070 ng/ml 0.077 ng/ml White Blood Count 4.7 10^3/ul 5.0 10^3/ul Red Blood Count 2.89 10^6/ul 3.02 10^6/ul Hemoglobin 9.6 g/dl 10.0 g/dl Hematocrit 29.5 % 30.3 % Mean Corpuscular 102.1 fl 100.3 fl Volume Mean Corpuscular 33.2 pg 33.1 pg Hemoglobin Mean Corpuscular 32.5 g/dl 33.0 g/dl Hemoglobin Concent Red Cell 13.8 % 13.6 % Distribution Width Platelet Count 170 10^3/UL 183 10^3/UL Mean Platelet 9.6 fl 9.8 fl Volume Immature 0.400 % 0.200 % Granulocytes % Neutrophils % 60.5 % 54.1 % Lymphocytes % 22.2 % 25.9 % Monocytes % 7.0 % 7.5 % Eosinophils % 9.3 % 11.7 % Basophils % 0.6 % 0.6 % Nucleated Red 0.0 /100WBC 0.0 /100WBC Blood Cells % Immature 0.020 10^3/ul 0.010 10^3/ul Granulocytes # Neutrophils # 2.9 10^3/ul 2.7 10^3/ul Lymphocytes # 1.1 10^3/ul 1.3 10^3/ul Monocytes # 0.3 10^3/ul 0.4 10^3/ul Eosinophils # 0.4 10^3/ul 0.6 10^3/ul Basophils # 0.0 10^3/ul 0.0 10^3/ul Nucleated Red 0.0 10^3/ul 0.0 10^3/ul Blood Cells # Hemoglobin A1c 4.8 % Total Bilirubin 0.4 mg/dl Direct Bilirubin 0.00 mg/dl Indirect Bilirubin 0.4 mg/dl Aspartate Amino 17 IU/L Transf (AST/SGOT) Alanine 17 IU/L Aminotransferase ( ALT/SGPT) Alkaline 75 IU/L Phosphatase Total Protein 5.7 g/dl Albumin 3.4 g/dl Globulin 2.30 g/dl Albumin/Globulin 1.47 Ratio Test 04/19/18 06:10 Sodium Level 141 mmol/L Potassium Level 4.6 mmol/L Chloride Level 104 mmol/L Carbon Dioxide 28 mmol/L Level Anion Gap 9 Blood Urea 37 mg/dl Nitrogen Creatinine 4.73 mg/dl Est Glomerular 12 mL/min Filtrat Rate mL/min Glucose Level 84 mg/dl Calcium Level 9.4 mg/dl Phosphorus Level 3.0 mg/dl Magnesium Level 1.9 mg/dl Assessment and Plan Assessment/Diagnosis Diagnosis Major depressive disorder severe recurrent without psychosis , mild cognitive impairment Recommendation/Plan Medication Management Continue on escitalopram 10 mg daily, Aricept 5 mg nightly and Seroquel 25 mg at bedtime as ordered Multiple antipsychotics: No Discharge Disposition: Other Legal Status: Voluntary (Does not meet criteria for 5150 hold) ANURADHA GLEASON NP Apr 19, 2018 15:50
[2018-04-19] MEDS: HYDROCODONE/APAP (5/325) TAB PO PRN ×2 (16:12→21:41)
[2018-04-19] MEDS: ATORVASTATIN 40 MG TAB PO SCH (20:25)
[2018-04-19] MEDS: TAMSULOSIN (SR) 0.4 MG CAP PO SCH (20:25)
[2018-04-19] MEDS: QUETIAPINE 25 MG TAB PO SCH (20:25)
[2018-04-19] MEDS: DONEPEZIL 5 MG TAB PO SCH (20:25)
[2018-04-20] VITALS (7 sets, daily range): BP systolic 127–151; BP diastolic 66–76; PULSE 53–65; RESP 18–20
[2018-04-20] MEDS: LEVOTHYROXINE 100 MCG TAB PO SCH (06:32)
[2018-04-20] MEDS: FUROSEMIDE 20 MG INJ IV SCH (06:32)
[2018-04-20] MEDS: CALCITRIOL 0.25 MCG CAP PO SCH (08:38)
[2018-04-20] MEDS: AMLODIPINE 10 MG TAB PO SCH (08:39)
[2018-04-20] MEDS: ALLOPURINOL 100 MG TAB PO SCH (08:41)
[2018-04-20] MEDS: CALCIUM ACETATE 667 MG CAP PO SCH ×2 (08:42→12:02)
[2018-04-20] MEDS: LISINOPRIL 10 MG TAB PO SCH (08:43)
[2018-04-20] MEDS: METOPROLOL (XL) 100 MG TAB PO SCH (08:43)
[2018-04-20] MEDS: FLUTICASONE/VILANTEROL 100-25 INH SCH (08:44)
[2018-04-20] MEDS: SEVELAMER CARBONATE 0.8 GM PKT PO SCH ×2 (08:44→12:02)
[2018-04-20] MEDS: ESCITALOPRAM 10 MG TAB PO SCH (08:47)
--- NOTE | 2018-04-20 08:57 | CONS ---
Assessment/Plan Assessment/Plan Assessment/Plan (Daily) 1. acute hyperkalemia 2. ESRD on HD through AVF 3. acute on chronic CHF,systolic 4. H/o CAD s/p pacemaker placement 5. H/o HTN 6. H/o HL 7. h/o COPD Plan: s/p HD today 1.8 L removed, BP stable, afebrile, , K normal today, Next HD will be tomorrow if not discharged pt follows at [facility] and his regular schedule for HD is MWF will follow up Consultation Date/Type/Reason Admit Date/Time Apr 17, 2018 at 12:24 Initial Consult Date 04/17/18 Type of Consult NEPHROLOGY Requesting Provider: BARBARA ESQUIVEL Date/Time of Note DATE: 04/20/18 TIME: 08:57 Exam/Review of Systems Exam Vitals Vital Signs Date Temp Pulse Resp B/P (MAP) Pulse Ox O2 O2 Flow FiO2 Time Delivery Rate 04/20/18 60 08:17 04/20/18 97.9 20 150/76 96 07:21 (100) 04/19/18 Room Air 18:17 04/17/18 21 14:36 04/17/18 2 10:41 Intake and Output 04/19/18 04/19/18 04/20/18 1515:00 23:00 07:00 IntakeIntake Total 300 ml 450 ml OutputOutput Total 200 ml 2800 ml 250 ml BalanceBalance -200 ml -2500 ml 200 ml Results Result Diagram: 04/20/18 0600 04/20/18 0600 Results 24hrs Laboratory Tests Test 04/20/18 06:00 04/20/18 08:09 White Blood Count 5.2 Red Blood Count 3.09 L Hemoglobin 10.3 L Hematocrit 31.0 L Mean Corpuscular Volume 100.3 Mean Corpuscular Hemoglobin 33.3 H Mean Corpuscular Hemoglobin Concent 33.2 Red Cell Distribution Width 13.4 Platelet Count 184 Mean Platelet Volume 9.5 Immature Granulocytes % 0.400 Neutrophils % 56.9 Lymphocytes % 22.0 Monocytes % 8.1 Eosinophils % 11.8 H Basophils % 0.8 Nucleated Red Blood Cells % 0.0 Immature Granulocytes # 0.020 Neutrophils # 3.0 Lymphocytes # 1.1 Monocytes # 0.4 Eosinophils # 0.6 H Basophils # 0.0 Nucleated Red Blood Cells # 0.0 Sodium Level 136 Potassium Level 3.9 Chloride Level 99 Carbon Dioxide Level 27 Anion Gap 10 Blood Urea Nitrogen 27 H Creatinine 3.68 #H Est Glomerular Filtrat Rate mL/min 16 L Glucose Level 83 Calcium Level 9.5 Phosphorus Level 3.6 Magnesium Level 1.8 Bedside Glucose 80 Medications Medication Current Medications IV Flush (NS 3 ml) 3 ml PER PROTOCOL IV ; Start 04/17/18 at 13:00 Acetaminophen (Tylenol Tab) 650 mg Q6H PRN PO .PAIN 1-3 OR TEMP Last administe red on 04/17/18 20:51; Admin Dose 650 MG; Start 04/17/18 at 13:00 Amlodipine Besylate (Norvasc) 10 mg DAILY PO Last administered on 04/20/18 08:39; Admin Dose 10 MG; Start 04/18/18 at 09:00 Atorvastatin Calcium (Lipitor) 40 mg QHS PO Last administered on 04/19/18 20:25; Admin Dose 40 MG; Start 04/17/18 at 21:00 Calcitriol (Rocaltrol) 0.5 mcg DAILY PO Last administered on 04/20/18 08:38; Admin Dose 0.5 MCG; Start 04/18/18 at 09:00 Calcium Acetate (Phoslo) 667 mg WITH MEALS PO Last administered on 04/20/18 08:42; Admin Dose 667 MG; Start 04/17/18 at 17:55 Donepezil HCl (Aricept) 5 mg QHS PO Last administered on 04/19/18 20:25; Admin Dose 5 MG; Start 04/17/18 at 21:00 Sevelamer Carbonate (Renvela) 0.8 gm WITH MEALS PO Last administered on 04/20/18 08:44; Admin Dose 0.8 GM; Start 04/17/18 at 17:55 Tamsulosin HCl (Flomax) 0.4 mg HS PO Last administered on 04/19/18 20:25; Admi n Dose 0.4 MG; Start 04/17/18 at 21:00 Allopurinol (Zyloprim) 100 mg DAILY PO Last administered on 04/20/18 08:41; Admin Dose 100 MG; Start 04/18/18 at 09:00 Escitalopram Oxalate (Lexapro) 10 mg DAILY PO Last administered on 04/20/18 08:47; Admin Dose 10 MG; Start 04/18/18 at 09:00 Levothyroxine Sodium (Synthroid) 100 mcg BEFORE BREAKFAST PO Last administered on 04/20/18 06:32; Admin Dose 100 MCG; Start 04/18/18 at 07:00 Lisinopril (Zestril) 10 mg BID PO Last administered on 04/20/18 08:43; Admin Dose 10 MG; Start 04/17/18 at 21:00 Metoprolol Succinate (Toprol Xl) 100 mg DAILY PO Last administered on 04/20/18 08:43; Admin Dose 100 MG; Start 04/18/18 at 09:00 Quetiapine Fumarate (Seroquel) 25 mg QHS PO Last administered on 04/19/18 20:25; Admin Dose 25 MG; Start 04/17/18 at 21:00 Albuterol/ Ipratropium (Duoneb) 3 ml Q2H RESP THERAPY PRN HHN shortness of breath; Start 04/17/18 at 13:00 Fluticasone/ Vilanterol (Breo Ellipta 100-25 Mcg Inh) 1 inh DAILY INH Last administered on 04/20/18 08:44; Admin Dose 1 INH; Start 04/17/18 at 18:30 Furosemide (Lasix) 20 mg BID DIURETICS IV Last administered on 04/20/18 06:32; Admin Dose 20 MG; Start 04/17/18 at 18:15 Albumin Human 50 ml @ 100 mls/hr WITH DIALYSIS PRN IV SBP < 90 DURING DIALYSIS; Start 04/17/18 at 18:30 Sodium Chloride (NS) -To prime the dialy... DIRECTED FOR HD PRN IV HD; Start 04/17/18 at 18:30 Acetaminophen/ Hydrocodone Bitart ([place] (5/325)) 1 tab Q4H PRN PO P4-10 Last administered on 04/19/18 21:41; Admin Dose 1 TAB; Start 04/18/18 at 15:00 Apixaban (Eliquis) 2.5 mg BID PO Last administered on 04/20/18 08:41; Admin Dose 2.5 MG; Start 04/20/18 at 09:00 AMANDA HUERTAS MD Apr 20, 2018 08:57
[2018-04-20] MEDS ORDERED: APIXABAN 5 MG TABLET PO SCH (09:00)
[2018-04-20] MEDS ORDERED: SEVE800T7 PO (11:49)
[2018-04-20] MEDS ORDERED: CALC667C PO (11:49)
[2018-04-20] MEDS ORDERED: ATOR40TA68 PO (11:49)
[2018-04-20] MEDS ORDERED: AMLO-218 PO (11:49)
[2018-04-20] MEDS ORDERED: TAMS0.4C2 PO (11:49)
[2018-04-20] MEDS ORDERED: FURO40TA4 PO (11:49)
[2018-04-20] MEDS ORDERED: ESCI10TA48 PO (11:49)
[2018-04-20] MEDS ORDERED: APIX5TAB PO (11:49)
[2018-04-20] MEDS ORDERED: ALLO100T PO (11:49)
[2018-04-20] MEDS ORDERED: LEVO-86 PO (11:49)
[2018-04-20] MEDS ORDERED: LISI10TA2 PO (11:49)
[2018-04-20] MEDS ORDERED: QUET25TA33 PO (11:49)
[2018-04-20] MEDS ORDERED: CALC0.5C10 PO (11:49)
[2018-04-20] MEDS ORDERED: METO-336 PO (11:49)
[2018-04-20] MEDS ORDERED: DONE5TAB7 PO (11:49)
[2018-04-20] MEDS ORDERED: RANI150C11 PO (11:49)
--- NOTE | 2018-04-20 11:55 | PDOCDIS ---
Discharge Instructions CONDITION [id number] Patient Condition: [id number] Stable FOLLOW UP/APPOINTMENTS Follow-up Plan 1. Please play close attention to the med reconciliation form summary her m edications have changed. Of note please stop taking Plavix. -If Eliquis is not covered please continue your previous Xarelto. 2. New prescriptions were provided for patient's needs, please review very closely on stopped medications. 3. Please follow-up with your primary care provider and clerk manager as soon as possible. BARBARA ESQUIVEL Apr 20, 2018 11:55
--- NOTE | 2018-04-20 12:00 | DS ---
Date/Time of Note Date/Time of Note DATE: 04/20/18 TIME: 12:00 Discharge Summary Admission/Discharge Info Admit Date/Time Apr 17, 2018 at 12:24 Discharge Date/Time Patient Condition: Stable Hospital Course Patient is a gentleman with a past medical history significant for mild dementia, congestive heart failure with ejection fraction of 25%, coronary artery disease, end-stage renal disease on hemodialysis and hypertension who presents to [facility] for shortness of breath. Patient's shortness of breath was short-lived and likely secondary to volume overload. Patient was dialyzed and shortness of breath immediately improved. Patient was seen by cardiology and nephrology at this time and medications were adjusted as patient did not leave AGAINST MEDICAL ADVICE on his previous admission without proper medication. Of note his blood pressure medications were adjusted as well as his renal medications. Also of note patient does have a history of atrial fibrillation and was on Xarelto at the assisted living facility. Nephrology suggested switch to Eliquis due to better tolerance with hemodialysis patients. New prescriptions were given to the patient and patient will be transferred back to his assisted living facility. It is not confirmed patient has COPD so his inhaler will not be prescribed at this time it was suggested to the patient that he follow-up with his primary care provider to evaluate for need of inhaler or COPD as he has not needed it in the past. Psychiatry has seen the patient and performed a Mini-Mental health exam as well as screening patient for depression Discharge diagnosis Shortness of breath, resolved, secondary to volume overload secondary to renal failure End-stage renal disease, on hemodialysis Acute on chronic congestive heart failure, resolving Coronary artery disease, holding Plavix per previous admission recommendations Hypertension Anemia Hypothyroidism Atrial fibrillation Depression mild dementia Home Meds Active Scripts Furosemide* (Furosemide*) 40 Mg Tablet, 40 MG PO DAILY for 30 Days, #30 TAB Prov:BARBARA ESQUIVEL 04/20/18 Apixaban* (Eliquis*) 5 Mg Tablet, 2.5 MG PO BID for 30 Days, #15 TAB 1 Refill Prov:BARBARA ESQUIVEL 04/20/18 Quetiapine Fumarate* (Quetiapine Fumarate*) 25 Mg Tablet, 25 MG PO QHS for 30 Days, #30 TAB Prov:BARBARA ESQUIVEL 04/20/18 Escitalopram Oxalate* (Escitalopram Oxalate*) 10 Mg Tablet, 10 MG PO DAILY, #30 TAB Prov:BARBARA ESQUIVEL 04/20/18 Donepezil* (Donepezil*) 5 Mg Tablet, 5 MG PO QHS for 30 Days, #30 TAB Prov:BARBARA ESQUIVEL 04/20/18 Lisinopril* (Lisinopril*) 10 Mg Tablet, 10 MG PO BID, #60 TAB Prov:ABRBARA ESQUIVEL 04/20/18 Metoprolol Succinate* (Toprol XL*) 100 Mg Tab.sr.24h, 100 MG PO DAILY, #30 TAB Prov:BARBARA ESQUIVEL 04/20/18 Ranitidine Hcl (Ranitidine Hcl) 150 Mg Capsule, 150 MG PO DAILY, #30 CAP Prov:BARBARA ESQUIVEL 04/20/18 Atorvastatin* (Atorvastatin*) 40 Mg Tablet, 40 MG PO QHS for 30 Days, #30 TAB Prov:BARBARA ESQUIVEL 04/20/18 Calcium Acetate* (Calcium Acetate*) 667 Mg Capsule, 667 MG PO WITH MEALS, #90 CAP Prov:BARBARA ESQUIVEL 04/20/18 Allopurinol* (Allopurinol*) 100 Mg Tablet, 100 MG PO DAILY for 30 Days, #30 TAB Prov:BARBARA ESQUIVEL 04/20/18 Amlodipine Besylate* (Norvasc*) 10 Mg Tablet, 10 MG PO DAILY for 30 Days, #30 TAB Prov:BARBARA ESQUIVEL 04/20/18 Levothyroxine Sodium* (Synthroid*) 100 Mcg Tablet, 100 MCG PO BEFORE BREAKFAST, #30 TAB Prov:BARBARA ESQUIVEL 04/20/18 Tamsulosin Hcl* (Tamsulosin Hcl*) 0.4 Mg Cap.er.24h, 0.4 MG PO HS for 30 Days, #30 CAP Prov:BARBARA ESQUIVEL 04/20/18 Calcitriol* (Calcitriol*) 0.5 Mcg Capsule, 0.5 MCG PO DAILY for 30 Days, #30 CAP Prov:BARBARA ESQUIVEL 04/20/18 Sevelamer Carbonate* (Renvela*) 800 Mg Tablet, 0.8 GM PO WITH MEALS for 30 Days, #90 TAB Prov:BARBARA ESQUIVEL 04/20/18 Reported Medications Temazepam* (Temazepam*) 15 Mg Capsule, 15 MG PO HS PRN for INSOMNIA, CAP 04/07/18 Discontinued Reported Medications Rivaroxaban* (Xarelto*) 15 Mg Tablet, 15 MG PO DAILY, TAB 04/07/18 Levothyroxine Sodium* (Levothyroxine Sodium*) 25 Mcg Tablet, 25 MCG PO BEFORE BREAKFAST, #30 TAB 04/07/18 Clopidogrel Bisulfate (Clopidogrel) 75 Mg Tablet, 75 MG PO DAILY, #30 TAB 04/07/18 Hydralazine Hcl* (Hydralazine Hcl*) 10 Mg Tablet, 10 MG PO Q6H, #60 TAB 12/24/16 Follow-up Plan 1. Please play close attention to the med reconciliation form summary her medications have changed. Of note please stop taking Plavix. -If Eliquis is not covered please continue your previous Xarelto. 2. New prescriptions were provided for patient's needs, please review very closely on stopped medications. 3. Please follow-up with your primary care provider and children's ministries director as soon as possible. Primary Care Provider Care Physician No Primary Time spent on discharge: > 30 minutes Pending Labs Laboratory Tests Test 04/20/18 06:00 04/20/18 08:09 White Blood Count 5.2 10^3/ul (4.8-10.8) Red Blood Count 3.09 10^6/ul (4.70-6.10) Hemoglobin 10.3 g/dl (14.0-18.0) Hematocrit 31.0 % (42.0-52.0) Mean Corpuscular Volume 100.3 fl (82.0-101.0) Mean Corpuscular Hemoglobin 33.3 pg (29.0-33.0) Mean Corpuscular 33.2 g/dl (32.0-37.0) Hemoglobin Concent Red Cell Distribution Width 13.4 % (11.5-14.5) Platelet Count 184 10^3/UL (140-415) Mean Platelet Volume 9.5 fl (7.4-10.4) Immature Granulocytes % 0.400 % (0.001-0.429) Neutrophils % 56.9 % (39.0-77.0) Lymphocytes % 22.0 % (15.0-51.0) Monocytes % 8.1 % (0.0-11.0) Eosinophils % 11.8 % (0.0-7.0) Basophils % 0.8 % (0.0-2.0) Nucleated Red Blood Cells % 0.0 /100WBC (0.0-0.0) Immature Granulocytes # 0.020 10^3/ul (0.0-0.031) Neutrophils # 3.0 10^3/ul (1.6-7.5) Lymphocytes # 1.1 10^3/ul (0.8-2.9) Monocytes # 0.4 10^3/ul (0.3-0.9) Eosinophils # 0.6 10^3/ul (0.0-0.5) Basophils # 0.0 10^3/ul (0.0-0.1) Nucleated Red Blood Cells # 0.0 10^3/ul (0.0-0.0) Sodium Level 136 mmol/L (135-144) Potassium Level 3.9 mmol/L (3.5-5.1) Chloride Level 99 mmol/L (97-110) Carbon Dioxide Level 27 mmol/L (21-31) Anion Gap 10 (5-13) Blood Urea Nitrogen 27 mg/dl (7-20) Creatinine 3.68 mg/dl (0.61-1.24) Est Glomerular Filtrat Rate mL/min 16 mL/min (>60) Glucose Level 83 mg/dl (70-220) Calcium Level 9.5 mg/dl (8.4-10.2) Phosphorus Level 3.6 mg/dl (2.5-4.9) Magnesium Level 1.8 mg/dl (1.7-2.5) Bedside Glucose 80 mg/dL (70-220) BARBARA ESQUIVEL Apr 20, 2018 12:00
--- NOTE | 2018-04-20 12:29 | CONS ---
Assessment/Plan Assessment/Plan Hospital Course (Demo Recall) IMPRESSION: 1. Congestive heart failure exacerbation, systolic, acute on chronic. 2. Cardiomyopathy with decreased left ventricular ejection fraction approximately 25% to 30% by echo, 04/07/2018. 3. Shortness of breath secondary to #1.-improved 4. Orthopnea secondary to #1.improved 5. Chronic kidney disease, not on hemodialysis. 6. Hyperkalemia. 7. Anemia. 8. Coagulopathy. 9. HTN-uncontrolled 10. H/O PAF- in SR currently. Discussed with hospitalist Recc: -Tele -Continue toprol XL -Continue zestril and consider slight increase -Continue Norvasc -F/U BP after receivng all medications -Continue Lasix now po with HD ongoing now for volume removal -Resumed on eliquis for PAF Consultation Date/Type/Reason Admit Date/Time Apr 17, 2018 at 12:24 Initial Consult Date 04/17/18 Type of Consult Cardiology Reason for Consultation CHF Requesting Provider: BARBARA ESQUIVEL Date/Time of Note DATE: 04/20/18 TIME: 12:27 Exam/Review of Systems Vital Signs Vitals Vital Signs Date Temp Pulse Resp B/P (MAP) Pulse Ox O2 O2 Flow FiO2 Time Delivery Rate 04/20/18 98.0 59 20 127/66 98 Room Air 11:13 (86) 04/17/18 21 14:36 04/17/18 2 10:41 Intake and Output 04/19/18 04/19/18 04/20/18 1414:59 22:59 06:59 IntakeIntake Total 300 ml 450 ml OutputOutput Total 200 ml 2800 ml 250 ml BalanceBalance -200 ml -2500 ml 200 ml Exam Exam Review of Systems: CONSTITUTIONAL: No fevers, chills. PULMONARY: No sob CARDIOVASCULAR: No chest pain/palpitations GASTROINTESTINAL: No nausea/vomiting. GENITOURINARY: No hematuria/dysuria. MUSCULOSKELETAL: No myagias/arthalgias. PSYCHIATRIC: The patient denies depression. NEUROLOGIC: No weakness Constitutional: alert Psych: no complaints Head: normocephalic ENMT: mucosa pink and moist Neck: supple, jvd (9 cm water) Respiratory: diminished breath sounds Cardiovascular: regular rate and rhythm Gastrointestinal: soft, non-tender Musculoskeletal: muscle tone (normal) Extremities: edema (none) Neurological: other (No focal deficits) Labs Result Diagram: 04/20/18 0600 04/20/18 0600 Results 24hrs Laboratory Tests Test 04/20/18 06:00 04/20/18 08:09 White Blood Count 5.2 Red Blood Count 3.09 L Hemoglobin 10.3 L Hematocrit 31.0 L Mean Corpuscular Volume 100.3 Mean Corpuscular Hemoglobin 33.3 H Mean Corpuscular Hemoglobin Concent 33.2 Red Cell Distribution Width 13.4 Platelet Count 184 Mean Platelet Volume 9.5 Immature Granulocytes % 0.400 Neutrophils % 56.9 Lymphocytes % 22.0 Monocytes % 8.1 Eosinophils % 11.8 H Basophils % 0.8 Nucleated Red Blood Cells % 0.0 Immature Granulocytes # 0.020 Neutrophils # 3.0 Lymphocytes # 1.1 Monocytes # 0.4 Eosinophils # 0.6 H Basophils # 0.0 Nucleated Red Blood Cells # 0.0 Sodium Level 136 Potassium Level 3.9 Chloride Level 99 Carbon Dioxide Level 27 Anion Gap 10 Blood Urea Nitrogen 27 H Creatinine 3.68 #H Est Glomerular Filtrat Rate mL/min 16 L Glucose Level 83 Calcium Level 9.5 Phosphorus Level 3.6 Magnesium Level 1.8 Bedside Glucose 80 Medications Medications Current Medications IV Flush (NS 3 ml) 3 ml PER PROTOCOL IV ; Start 04/17/18 at 13:00 Acetaminophen (Tylenol Tab) 650 mg Q6H PRN PO .PAIN 1-3 OR TEMP Last administered on 04/17/18at 20:51; Admin Dose 650 MG; Start 04/17/18 at 13:00 Amlodipine Besylate (Norvasc) 10 mg DAILY PO Last administered on 04/20/18at 08:39; Admin Dose 10 MG; Start 04/18/18 at 09:00 Atorvastatin Calcium (Lipitor) 40 mg QHS PO Last administered on 04/19/18 20:25; Admin Dose 40 MG; Start 04/17/18 at 21:00 Calcitriol (Rocaltrol) 0.5 mcg DAILY PO Last administered on 04/20/18 08:38; Admin Dose 0.5 MCG; Start 04/18/18 at 09:00 Calcium Acetate (Phoslo) 667 mg WITH MEALS PO Last administered on 04/20/18 12:02; Admin Dose 667 MG; Start 04/17/18 at 17:55 Donepezil HCl (Aricept) 5 mg QHS PO Last administered on 04/19/18 20:25; Admin Dose 5 MG; Start 04/17/18 at 21:00 Sevelamer Carbonate (Renvela) 0.8 gm WITH MEALS PO Last administered on 04/20/18 12:02; Admin Dose 0.8 GM; Start 04/17/18 at 17:55 Tamsulosin HCl (Flomax) 0.4 mg HS PO Last administered on 04/19/18 20:25; Admin Dose 0.4 MG; Start 04/17/18 at 21:00 Allopurinol (Zyloprim) 100 mg DAILY PO Last administered on 04/20/18 08:41; Admin Dose 100 MG; Start 04/18/18 at 09:00 Escitalopram Oxalate (Lexapro) 10 mg DAILY PO Last administered on 04/20/18 08:47; Admin Dose 10 MG; Start 04/18/18 at 09:00 Levothyroxine Sodium (Synthroid) 100 mcg BEFORE BREAKFAST PO Last administered on 04/20/18 06:32; Admin Dose 100 MCG; Start 04/18/18 at 07:00 Lisinopril (Zestril) 10 mg BID PO Last administered on 04/20/18 08:43; Admin Dose 10 MG; Start 04/17/18 at 21:00 Metoprolol Succinate (Toprol Xl) 100 mg DAILY PO Last administered on 04/20/18 08:43; Admin Dose 100 MG; Start 04/18/18 at 09:00 Quetiapine Fumarate (Seroquel) 25 mg QHS PO Last administered on 04/19/18 20:2 5; Admin Dose 25 MG; Start 04/17/18 at 21:00 Albuterol/ Ipratropium (Duoneb) 3 ml Q2H RESP THERAPY PRN HHN shortness of breath; Start 04/17/18 at 13:00 Fluticasone/ Vilanterol (Breo Ellipta 100-25 Mcg Inh) 1 inh DAILY INH Last administered on 04/20/18 08:44; Admin Dose 1 INH; Start 04/17/18 at 18:30 Albumin Human 50 ml @ 100 mls/hr WITH DIALYSIS PRN IV SBP < 90 DURING DIALYSIS; Start 04/17/18 at 18:30 Sodium Chloride (NS) -To prime the dialy... DIRECTED FOR HD PRN IV HD; Start 04/17/18 at 18:30 Acetaminophen/ Hydrocodone Bitart ([place] (5/325)) 1 tab Q4H PRN PO P4-10 Last administered on 04/19/18at 21:41; Admin Dose 1 TAB; Start 04/18/18 at 15:00 Apixaban (Eliquis) 2.5 mg BID PO Last administered on 04/20/18at 08:41; Admin Dose 2.5 MG; Start 04/20/18 at 09:00 Furosemide (Lasix) 40 mg DAILY PO ; Start 04/21/18 at 09:00 GAEL HUMPHREY Apr 20, 2018 12:29
[2018-04-20] MEDS ORDERED: LISINOPRIL 5 MG TAB PO SCH (21:00)
[2018-04-21] MEDS ORDERED: FUROSEMIDE 40 MG TAB PO SCH (09:00)
== END 2018-04-20 15:14 | disposition home or self-care (01) | DRG 291 ==
LOC: E/R 10:09 → TEL 12:24
PROVIDERS: ADMIT Internal Medicine; ATTEND Internal Medicine
PROC: 5A1D70Z Performance of Urinary Filtration, Intermittent, Less than 6 Hours Per Day (ICD-10-PCS; 2018-04-17)
PROC: 5A1D70Z Performance of Urinary Filtration, Intermittent, Less than 6 Hours Per Day (ICD-10-PCS; principal; 2018-04-18)
DX: I13.2 Hypertensive heart and chronic kidney disease with heart failure and with stage 5 chronic kidney disease, or end stage renal disease (principal); N18.6 End stage renal disease; I50.23 Acute on chronic systolic (congestive) heart failure; D68.9 Coagulation defect, unspecified; I48.91 Unspecified atrial fibrillation; I42.9 Cardiomyopathy, unspecified; E87.5 Hyperkalemia; J44.9 Chronic obstructive pulmonary disease, unspecified; F03.90 Unspecified dementia, unspecified severity, without behavioral disturbance, psychotic disturbance, mood disturbance, and anxiety; I25.10 Atherosclerotic heart disease of native coronary artery without angina pectoris; D63.1 Anemia in chronic kidney disease; E03.9 Hypothyroidism, unspecified; F32.9 Major depressive disorder, single episode, unspecified; F12.20 Cannabis dependence, uncomplicated; Z79.02 Long term (current) use of antithrombotics/antiplatelets; Z99.2 Dependence on renal dialysis; Z95.0 Presence of cardiac pacemaker; Z87.891 Personal history of nicotine dependence
CPT/HCPCS: 36415; 71045; 80048; 80053; 82962; 83036; 83605; 83735; 84100; 84484; 85025; 85610; 85730; 87040; 87081; 90686; 90935; 93005; 94640; 94664; J1940